=== PATIENT | female | born 1950 | race Caucasian/White ===

== ENCOUNTER 2016-11-04 19:24 | Emergency (ER) | payer MEDICARE, OTHER ==
[~2016-11-04] VITALS: Ht 154.9 cm; Wt 91.0 kg
[~2016-11-04 19:24] MED LIST: ALBU6.7H INH; ALPR.25 PO; ASPI81TA11 PO; AZIT250T74 PO; CEFU1TAB43 PO; CLOP75 PO; EZET10 PO; FLON0.053; FURO1TAB93 PO; METF850T PO; METO25 PO; MORP1CAP63 PO; NEBUMIS6 INH; OMEP20TA OR; OXYC1TAB13 PO; PATA0.2S OP; POTA-243 PO; PRED20 PO; PROM25SU8 PO; STOO100C PO; TRAZ150T2 PO; Z.0.OXYGENDME NC; [UNRECOGNIZED DRUG - CODE] ID
[2016-11-04 19:29] VITALS: BP 181/65; PULSE 54; RESP 18; TEMP 98.5; O2SAT 95
[2016-11-04] MEDS ORDERED: OXYGEN INH (19:51)
[2016-11-04] MEDS ORDERED: METF850T PO (19:51)
[2016-11-04] MEDS ORDERED: COLA100C PO (19:51)
[2016-11-04] MEDS ORDERED: MORP1TAB25 PO (19:51)
[2016-11-04] MEDS ORDERED: TRAZ1TAB45 PO (19:51)
[2016-11-04] MEDS ORDERED: OMEP20TA PO (19:51)
[2016-11-04] MEDS ORDERED: ALPR.25 PO (19:51)
[2016-11-04] MEDS ORDERED: ALBU6.7H INH (19:51)
[2016-11-04] MEDS ORDERED: FLUT1SPR9 EACH NARE (19:51)
[2016-11-04] MEDS ORDERED: PATA0.2S EACH EYE (19:51)
[2016-11-04] MEDS ORDERED: FURO1TAB60 PO (19:51)
[2016-11-04] MEDS ORDERED: PROM12.54 PO (19:51)
[2016-11-04] MEDS ORDERED: PLAV75TA29 PO (19:51)
[2016-11-04] MEDS ORDERED: POTA10CA PO (19:51)
[2016-11-04] MEDS ORDERED: METO25TA3 PO (19:51)
[2016-11-04] MEDS ORDERED: ASPI81CH7 CHEW (19:51)
[2016-11-04] MEDS ORDERED: OXYC-395 PO (19:51)
--- NOTE | 2016-11-04 20:32 | RADRPT ---
EXAM DATE/TIME: 11/04/2016 20:01 [facility] COMPARISON: No previous studies available for comparison. INDICATIONS : Trauma, twisted leg and knee. MEDICAL HISTORY : None. SURGICAL HISTORY : None. ENCOUNTER: Initial ACUITY: 3 days PAIN SCORE: 8/10 LOCATION: Left knee FINDINGS: Four view examination of the left knee demonstrates mild osteoarthritis. No fracture or dislocation. No acute bony abnormalities. CONCLUSION: 1. No acute findings. Mild osteoarthritis left knee. Genaro Rockwell MD on November 04, 2016 at 20:30 Board Certified Radiologist. This report was verified electronically.
--- NOTE | 2016-11-04 20:35 | PD ---
HPI Chief Complaint: Pain: Acute or Chronic Time Seen by Provider: 19:53 Travel History International Travel<30 days: No Contact w/Intl Traveler<30days: No Traveled to known affect area: No History of Present Illness HPI 66-year-old female with chief complaint of left knee pain status post twisting injury while getting out of a cab 3 days ago. She did not fall to the ground. There was no head injury or loss of consciousness. Patient reports she felt pain immediately within the medial aspect but the pain progressed this morning causing her extreme pain with weightbearing. She comes in by EMS. Her daughter is present at bedside. She denies headache, chest pain, shortness breath, abdominal pain, nausea vomiting or diarrhea. She reports she took her morphine this morning. She also has oxycodone for breakthrough pain which she reports she did not take. PFSH Past Medical History Hx Anticoagulant Therapy: Yes Arthritis: Yes (RA) Asthma: No Autoimmune Disease: Yes (LUPUS) Blood Disorders: No Anxiety: Yes Depression: Yes Heart Rhythm Problems: Yes Cancer: No Cardiac Catheterization: Yes Cardiovascular Problems: Yes High Cholesterol: Yes Chemotherapy: No Chest Pain: Yes Congestive Heart Failure: No COPD: Yes Cerebrovascular Accident: Yes Coronary Artery Disease: Yes Diabetes: Yes Patient Takes Glucophage: Yes (11-04-16 0900) Diminished Hearing: No Endocrine: No Gastrointestinal Disorders: Yes GERD: Yes Glaucoma: No Genitourinary: No Headaches: No Hepatitis: No Hiatal Hernia: No Hypertension: Yes (controlled) Immune Disorder: Yes Kidney Stones: No Musculoskeletal: Yes (SPINAL STENOSIS, FIBROMYALGIA) Neurologic: Yes Psychiatric: Yes (PTSD) Reproductive: No Respiratory: Yes Immunizations Current: No Myocardial Infarction: Yes Radiation Therapy: No Renal Failure: No Seizures: No Sickle Cell Disease: No Sleep Apnea: No Thyroid Disease: No Ulcer: No Tetanus Vaccination: Unknown Influenza Vaccination: No ?: Not Ovarian Cysts: Yes Past Surgical History Abdominal Surgery: Yes (partial colectomy) AICD: No Appendectomy: Yes Body Medical Devices: titanium plate in neck Cardiac Surgery: Yes (CABG X 3 VESSELS) Cholecystectomy: Yes Coronary Artery Bypass Graft: Yes (TRIPLE BYPASS) Ear Surgery: No Endocrine Surgery: No Eye Surgery: No Genitourinary Surgery: No Gynecologic Surgery: No Hysterectomy: Yes Joint Replacement: No Neurologic Surgery: Yes (discectomy) Oral Surgery: No Pacemaker: No Thoracic Surgery: No Tonsillectomy: Yes Other Surgery: Yes Social History Alcohol Use: No Tobacco Use: No Substance Use: No Allergies-Medications (Allergen,Severity, Reaction): Coded Allergies: amlodipine (Unverified Allergy, Severe, INTESTINAL REACTION PER PT, ) celecoxib (Unverified Allergy, Severe, GI BLEED, 11/04/16) codeine (Unverified Allergy, Severe, VOMITING, 11/04/16) enalaprilat (Unverified Allergy, Severe, DOES NOT REMEMBER, 11/04/16) gabapentin (Unverified Allergy, Severe, VOMITING, 11/04/16) naproxen (Unverified Allergy, Severe, GI BLEED, 11/04/16) ramipril (Unverified Allergy, Severe, VOMITING, 11/04/16) rofecoxib (Unverified Allergy, Severe, GI BLEED, 11/04/16) sumatriptan (Unverified Allergy, Severe, HEART PALPITATIONS, 11/04/16) pregabalin (Unverified Allergy, Unknown, Psychosis, 11/04/16) Reported Meds & Prescriptions Reported Meds & Active Scripts Active Reported Trazodone (Trazodone HCl) 150 Mg Tablet 150 Mg PO HS Promethazine (Promethazine HCl) 12.5 Mg Tab 12.5 Mg PO Q6H Potassium Chloride ER (Potassium Chloride) 10 Meq Cap 10 Meq PO DAILY [Oxygen] 2 Liter INH DIRECTED Oxycodone (Oxycodone HCl) 10 Mg Tab 10 Mg PO Q6HR Omeprazole 20 Mg Tab 20 Mg PO DAILY [place]aday Opth 0.2% (Olopatadine HCl) 0.2 % Drops 1 Drop EACH EYE DAILY Morphine ER (Morphine Sulfate) 30 Mg Tab 30 Mg PO BID Metoprolol Tartrate 25 Mg Tab 25 Mg PO DAILY Metformin (Metformin HCl) 850 Mg Tab 850 Mg PO DAILY With a meal Lasix (Furosemide) 40 Mg Tab 40 Mg PO BID Flonase Allergy Relief Children Nasal [place] (Fluticasone Nasal [place]) 50 Mcg/ Act [place] 2 [place] EACH NARE BID 50 mcg/spray Colace (Docusate Sodium) 100 Mg Capsule 1 Tab PO BID Plavix (Clopidogrel Bisulfate) 75 Mg Tab 75 Mg PO DAILY Aspirin Children's (Aspirin) 81 Mg Chew 81 Mg CHEW BID Xanax (Alprazolam) 0.25 Mg Tab 0.25 Mg PO TID PRN Proventil Hfa 6.7 GM Inh (Albuterol Sulfate) 90 Mcg/Act Aer 2 Puff INH Q6H PRN Review of Systems Except as stated in HPI: all other systems reviewed are Neg General / Constitutional: No: Fever Eyes: No: Visual changes HENT: No: Headaches Cardiovascular: No: Chest Pain or Discomfort Respiratory: No: Shortness of Breath Gastrointestinal: No: Abdominal Pain Genitourinary: No: Dysuria Skin: No Rash Physical Exam Narrative GENERAL: Alert, well-appearing female resting comfortably on the stretcher. She appears comfortable and in no acute distress SKIN: Focused skin assessment warm/dry. HEAD: Atraumatic. Normocephalic. EYES: Pupils equal and round. No scleral icterus. No injection or drainage. ENT: No nasal bleeding or discharge. Mucous membranes pink and moist. NECK: Trachea midline. No JVD. CARDIOVASCULAR: Regular rate and rhythm. No murmur appreciated. RESPIRATORY: No accessory muscle use. Clear to auscultation. Breath sounds equal bilaterally. Decreased breath sounds bilaterally. GASTROINTESTINAL: Abdomen soft, non-tender, nondistended. Hepatic and splenic margins not palpable. MUSCULOSKELETAL: No obvious deformities. No clubbing. No cyanosis. No edema. Left lower extremity: TTP to the medial anterior aspect of the knee. Pain with full flexion. The joint is stable. No deformity. 2+ distal pulses. NEUROLOGICAL: Awake and alert. No obvious cranial nerve deficits. Motor grossly within normal limits. Normal speech. PSYCHIATRIC: Appropriate mood and affect; insight and judgment normal. Data Data Last Documented VS Vital Signs Date Time Temp Pulse Resp B/P (MAP) Pulse Ox O2 Delivery O2 Flow Rate FiO2 11/04/16 19:29 98.5 54 18 181/65 (103) 95 Orders Orders Knee, Complete (4vws) (11/04/16 ) Splint Or Brace Apply/Monitor (11/04/16 20:53) MDM Medical Decision Making Medical Screen Exam Complete: Yes Emergency Medical Condition: Yes Differential Diagnosis Knee sprain versus strain versus fracture Narrative Course 66-year-old female with chief complaint of left medial knee pain status post twisting injury 3 days ago. Patient reports she was getting out of a cab when she twisted the left knee which caused immediate pain within the medial aspect. The pain increased progressively over 3 days till point this morning where she felt extreme pain with weightbearing. She was brought in by EMS for evaluation. On exam patient appears comfortable. She has pain in the medial aspect of the knee and with flexion of the knee. X-ray of the knee shows mild osteoarthritis without fracture dislocation. This was discussed at length patient and family. Family is concerned the patient is not able to care for herself or ambulate around the house. A requests with case management was made to contact the patient and family tomorrow for a home evaluation and possible placement or home health assistance. Diagnosis Primary Impression: Knee sprain Qualified Codes: S83.412A - Sprain of medial collateral ligament of left knee , initial encounter Referrals: Primary Care Physician Additional Instructions: Take pain medication as prescribed. Use the Sharath wrap to support the left knee. Use the walker to ambulate. Case management will be contacting you tomorrow to set up a home evaluation. Follow-up with her primary care doctor. Disposition: 01 DISCHARGE HOME Condition: Stable Joceline Allen Nov 04, 2016 20:35
== END 2016-11-04 21:39 | disposition home or self-care (01) ==
LOC: PHEFT 19:24
DX: S83.412A Sprain of medial collateral ligament of left knee, initial encounter (principal); E11.9 Type 2 diabetes mellitus without complications; I10 Essential (primary) hypertension; I25.10 Atherosclerotic heart disease of native coronary artery without angina pectoris; I25.2 Old myocardial infarction; J44.9 Chronic obstructive pulmonary disease, unspecified; K21.9 Gastro-esophageal reflux disease without esophagitis; M32.9 Systemic lupus erythematosus, unspecified; M79.7 Fibromyalgia; Z86.73 Personal history of transient ischemic attack (TIA), and cerebral infarction without residual deficits; Z95.1 Presence of aortocoronary bypass graft; Z79.01 Long term (current) use of anticoagulants; X50.1XXA Overexertion from prolonged static or awkward postures, initial encounter
CPT/HCPCS: 73564; 99283

== ENCOUNTER 2017-06-01 04:21 | Inpatient (IN) | payer MEDICARE ==
[~2017-06-01] VITALS: Ht 154.9 cm; Wt 101.6 kg
[2017-06-01] VITALS (21 sets, daily range): BP systolic 156–229; BP diastolic 60–109; PULSE 69–99; RESP 17–24; TEMP 99–101.1; O2SAT 85–99
[~2017-06-01 04:21] MED LIST changes: +ASPI81CH7 CHEW; -ASPI81TA11 PO; -AZIT250T74 PO; -CEFU1TAB43 PO; -CLOP75 PO; +COLA100C5 PO; -EZET10 PO; -FLON0.053; +FLUT1SPR9 EACH NARE; +FURO1TAB60 PO; -FURO1TAB93 PO; -METO25 PO; +METO25TA3 PO; -MORP1CAP63 PO; +MORP1TAB25 PO; -NEBUMIS6 INH; -OMEP20TA OR; +OMEP20TA93 PO; +OXYC-395 PO; -OXYC1TAB13 PO; +OXYGEN INH; +PATA0.2S EACH EYE; -PATA0.2S OP; +PLAV75TA29 PO; -POTA-243 PO; +POTA10CA PO; -PRED20 PO; +PROM12.54 PO; -PROM25SU8 PO; -STOO100C PO; -TRAZ150T2 PO; +TRAZ1TAB14 PO; -Z.0.OXYGENDME NC
--- NOTE | 2017-06-01 04:41 | PD ---
HPI Chief Complaint: ENT Complaint Time Seen by Provider: 04:35 Travel History International Travel<30 days: No Contact w/Intl Traveler<30days: No Traveled to known affect area: No History of Present Illness HPI 66-year-old female presents to the emergency department by EMS transport for complaint of sore throat. Patient has had sore throat for 3 days. Patient states painful to swallow and therefore spitting out oral secretions. Patient was able take aspirin at 8 PM. Patient rates her pain as severe. Patient has extensive past medical history including hypertension dyslipidemia CAD CABG chronic kidney disease fibromyalgia chronic tobacco use COPD anxiety chronic pain syndrome and opiate dependency. Patient denies any hematemesis coffee- ground emesis or hemoptysis. Patient states she has had a fever 10 1F. Patient states she is used [id number] cough medicine without relief. Patient does not report any new shortness of breath orthopnea or PND or lower extremity pain or swelling. Patient is diabetic. Patient has previously been on Plavix. PFSH Past Medical History Narrative Medical Hypertension dyslipidemia CAD CABG chronic kidney disease fibromyalgia tobacco use COPD anxiety chronic pain syndrome opiate dependency CHF; nursing notes reviewed Hx Anticoagulant Therapy: Yes Arthritis: Yes (RA) Asthma: No Autoimmune Disease: Yes (LUPUS) Blood Disorders: No Anxiety: Yes Depression: Yes Heart Rhythm Problems: Yes Cancer: No Cardiac Catheterization: Yes Cardiovascular Problems: Yes High Cholesterol: Yes Chemotherapy: No Chest Pain: Yes Congestive Heart Failure: No COPD: Yes Cerebrovascular Accident: Yes Coronary Artery Disease: Yes Diabetes: Yes Diminished Hearing: No Endocrine: No Gastrointestinal Disorders: Yes GERD: Yes Glaucoma: No Genitourinary: No Headaches: No Hepatitis: No Hiatal Hernia: No Hypertension: Yes (controlled) Immune Disorder: Yes Kidney Stones: No Musculoskeletal: Yes (SPINAL STENOSIS, FIBROMYALGIA) Neurologic: Yes Psychiatric: Yes (PTSD) Reproductive: No Respiratory: Yes Immunizations Current: No Myocardial Infarction: Yes Radiation Therapy: No Renal Failure: No Seizures: No Sickle Cell Disease: No Sleep Apnea: No Thyroid Disease: No Ulcer: No ?: Not Ovarian Cysts: Yes Past Surgical History Abdominal Surgery: Yes (partial colectomy) AICD: No Appendectomy: Yes Body Medical Devices: titanium plate in neck Cardiac Surgery: Yes (CABG X 3 VESSELS) Cholecystectomy: Yes Coronary Artery Bypass Graft: Yes (TRIPLE BYPASS) Ear Surgery: No Endocrine Surgery: No Eye Surgery: No Genitourinary Surgery: No Gynecologic Surgery: No Hysterectomy: Yes Joint Replacement: No Neurologic Surgery: Yes (discectomy) Oral Surgery: No Pacemaker: No Thoracic Surgery: No Tonsillectomy: Yes Other Surgery: Yes Social History Alcohol Use: No Tobacco Use: No Substance Use: No Allergies-Medications (Allergen,Severity, Reaction): Coded Allergies: amlodipine (Unverified Allergy, Severe, INTESTINAL REACTION PER PT, ) celecoxib (Unverified Allergy, Severe, GI BLEED, 06/01/17) codeine (Unverified Allergy, Severe, VOMITING, 06/01/17) enalaprilat (Unverified Allergy, Severe, DOES NOT REMEMBER, 06/01/17) gabapentin (Unverified Allergy, Severe, VOMITING, 06/01/17) naproxen (Unverified Allergy, Severe, GI BLEED, 06/01/17) ramipril (Unverified Allergy, Severe, VOMITING, 06/01/17) rofecoxib (Unverified Allergy, Severe, GI BLEED, 06/01/17) sumatriptan (Unverified Allergy, Severe, HEART PALPITATIONS, 06/01/17) pregabalin (Unverified Allergy, Unknown, Psychosis, 06/01/17) Reported Meds & Prescriptions Reported Meds & Active Scripts Active Reported Trazodone (Trazodone HCl) 150 Mg Tablet 150 Mg PO HS Promethazine (Promethazine HCl) 12.5 Mg Tab 12.5 Mg PO Q6H Potassium Chloride ER (Potassium Chloride) 10 Meq Cap 10 Meq PO DAILY [Oxygen] 2 Liter INH DIRECTED Oxycodone (Oxycodone HCl) 10 Mg Tab 10 Mg PO Q6HR Omeprazole 20 Mg Tab 20 Mg PO DAILY Pataday Opth 0.2% (Olopatadine HCl) 0.2 % Drops 1 Drop EACH EYE DAILY Morphine ER (Morphine Sulfate) 30 Mg Tab 30 Mg PO BID Metoprolol Tartrate 25 Mg Tab 25 Mg PO DAILY Metformin (Metformin HCl) 850 Mg Tab 850 Mg PO DAILY With a meal Lasix (Furosemide) 40 Mg Tab 40 Mg PO BID Flonase Allergy Relief Children Nasal [place] (Fluticasone Nasal [place]) 50 Mcg/ Act [place] 2 [place] EACH NARE BID 50 mcg/spray Colace (Docusate Sodium) 100 Mg Capsule 1 Tab PO BID Plavix (Clopidogrel Bisulfate) 75 Mg Tab 75 Mg PO DAILY Aspirin Children's (Aspirin) 81 Mg Chew 81 Mg CHEW BID Xanax (Alprazolam) 0.25 Mg Tab 0.25 Mg PO TID PRN Proventil Hfa 6.7 GM Inh (Albuterol Sulfate) 90 Mcg/Act Aer 2 Puff INH Q6H PRN Review of Systems Except as stated in HPI: all other systems reviewed are Neg General / Constitutional: Positive: Fever, No: Chills HENT: Positive: Sore Throat, Congestion Cardiovascular: No: Chest Pain or Discomfort Respiratory: No: Cough, Shortness of Breath, Wheezing, Orthopnea, Hemoptysis Gastrointestinal: No: Vomiting, Abdominal Pain Genitourinary: No: Flank Pain Musculoskeletal: No: Myalgias, Arthralgias, Edema, Pain Skin: No Rash Neurologic: No: Weakness Psychiatric: No: Anxiety Hematologic/Lymphatic: No: Lymph Node Enlargement Physical Exam Narrative GENERAL: Well-developed well-nourished female ambulating about the emergency department exam room with supplemental oxygen via nasal cannula spitting into a plastic cup with O2 saturations 96-97% in no acute respiratory distress without stridor or hoarseness. SKIN: Warm and dry. HEAD: Normocephalic. EYES: No scleral icterus. No injection or drainage. ENT: Mucous membranes moist airway is patent, no edema, no erythema, no mass, no exudative change, no angioedema NECK: Supple, trachea midline. No JVD or lymphadenopathy. No palpable submandibular or anterior neck mass. CARDIOVASCULAR: Regular rate and rhythm without murmurs, gallops, or rubs. RESPIRATORY: Breath sounds equal bilaterally. No accessory muscle use. GASTROINTESTINAL: Abdomen soft, non-tender, nondistended. MUSCULOSKELETAL: No cyanosis, or edema. BACK: Nontender without obvious deformity. No CVA tenderness. Data Data Last Documented VS Vital Signs Date Time Temp Pulse Resp B/P (MAP) Pulse Ox O2 Delivery O2 Flow Rate FiO2 06/01/17 08:07 18 06/01/17 07:46 99.4 91 156/109 (125) 95 Nasal Cannula 2.00 Orders Orders Basic Metabolic Panel (Bmp) (06/01/17 04:35) Complete Blood Count With Diff (06/01/17 04:35) Blood Culture (06/01/17 04:35) Group A Rapid Strep Screen (06/01/17 04:35) Ct Soft Tiss Neck W Iv Cont (06/01/17 04:35) Iv Access Insert/Monitor (06/01/17 04:35) Sodium Chloride 0.9% Flush (Ns Flush) (06/01/17 04:45) Strep Culture (Group A) (06/01/17 05:00) Iohexol 350 Inj (Omnipaque 350 Inj) (06/01/17 06:37) Lactic Acid (06/01/17 07:06) Blood Culture (06/01/17 07:06) Ampicillin-Sulbactam Inj (Unasyn Inj) (06/01/17 07:15) Dexamethasone Inj (Decadron Inj) (06/01/17 07:15) Ondansetron Inj (Zofran Inj) (06/01/17 07:15) Morphine Inj (Morphine Inj) (06/01/17 07:15) Clindamycin 600 Mg/Ns Premix (Cleocin 60 (06/01/17 08:45) Labs Laboratory Tests Test 06/01/17 05:10 06/01/17 07:55 White Blood Count 8.7 TH/MM3 Red Blood Count 3.90 MIL/MM3 Hemoglobin 12.5 GM/DL Hematocrit 36.7 % Mean Corpuscular Volume 94.1 FL Mean Corpuscular Hemoglobin 32.2 PG Mean Corpuscular Hemoglobin Concent 34.2 % Red Cell Distribution Width 12.5 % Platelet Count 88 TH/MM3 Mean Platelet Volume 9.3 FL Neutrophils (%) (Auto) 85.3 % Lymphocytes (%) (Auto) 7.1 % Monocytes (%) (Auto) 5.8 % Eosinophils (%) (Auto) 1.0 % Basophils (%) (Auto) 0.8 % Neutrophils # (Auto) 7.4 TH/MM3 Lymphocytes # (Auto) 0.6 TH/MM3 Monocytes # (Auto) 0.5 TH/MM3 Eosinophils # (Auto) 0.1 TH/MM3 Basophils # (Auto) 0.1 TH/MM3 CBC Comment AUTO DIFF Differential Total Cells Counted 100 Neutrophils % (Manual) 83 % Band Neutrophils % 6 % Lymphocytes % 8 % Monocytes % 1 % Eosinophils % 1 % Basophils % 1 % Neutrophils # (Manual) 7.7 TH/MM3 Differential Comment FINAL DIFF MANUAL Platelet Estimate LOW Platelet Morphology Comment NORMAL Red Cell Morphology Comment NORMAL Blood Urea Nitrogen 12 MG/DL Creatinine 0.81 MG/DL Random Glucose 119 MG/DL Calcium Level 9.5 MG/DL Sodium Level 139 MEQ/L Potassium Level 3.8 MEQ/L Chloride Level 105 MEQ/L Carbon Dioxide Level 22.8 MEQ/L Anion Gap 11 MEQ/L Estimat Glomerular Filtration Rate 71 ML/MIN Lactic Acid Level 2.0 mmol/L MDM Medical Decision Making Medical Screen Exam Complete: Yes Emergency Medical Condition: Yes Medical Record Reviewed: Yes Interpretation(s) Last Impressions Neck CT 06/01/17 0435 Signed Impressions: Service Date/Time: Thursday, June 01, 2017 06:20 - CONCLUSION: 1. Findings suggestive left oral pharyngeal mass and concentric narrowing of the supraglottic airway at the level of the hyoid. 2. Incomplete evaluation of the oropharynx and hypopharynx due to motion/streak artifact. 3. Prominent gaseous distention of the upper thoracic esophagus. Patricio Lake MD CBC & BMP Diagram 06/01/17 05:10 Calcium Level 9.5 Vital Signs Date Time Temp Pulse Resp B/P (MAP) Pulse Ox O2 Delivery O2 Flow Rate FiO2 06/01/17 08:07 18 06/01/17 07:46 99.4 91 18 156/109 (125) 95 Nasal Cannula 2.00 06/01/17 06:29 92 18 223/78 (126) 99 Nasal Cannula 2.00 06/01/17 05:47 87 22 224/99 (140) 98 Nasal Cannula 2.00 06/01/17 04:25 99.1 90 20 229/87 (134) 99 06/01/17 04:25 18 Differential Diagnosis Pharyngitis, strep throat, sinusitis, retropharyngeal abscess, submandibular abscess, Vikash's angina, mass; no evidence for peritonsillar abscess Narrative Course IV access obtained specimens collected and sent for resulting patient continued on supplemental oxygen Zofran 4 mg IV administered for complaint of nausea Patient aware of lab results and imaging results and plan to transfer to [facility] for evaluation and possible procedural intervention by earring maker Patient administered antibiotic presumptively along with Decadron CBC is automated differential white count is in normal range mild left shift; basic metabolic panel grossly normal range; lactic acid 2.0 not elevated Physician Communication Physician Communication discussed with Dr Chambers --send to [facility] to medicine, npo, scope this afternoon, continue decadron 6mg iv q 8 h, and antibiotics clindamycin 600mg ivpb q 6 hours ; hold plavix and aspirin; discussed with Dr Lenz Diagnosis Primary Impression: Oropharyngeal mass Additional Impressions: Diabetes mellitus CHRONIC OBSTRUCTIVE ASTHMA, NOS HYPERTENSION NOS Chronic pain Admitting Information Admitting Physician Requests: Admit Nano Sykes MD Jun 01, 2017 04:41
[2017-06-01] MEDS ORDERED: SODIUM CHLORIDE 0.9% FLUSH 10 ML FLUSH IVF PRN (04:45)
[2017-06-01 05:30] LABS: AUTOMATED NEUTROPHIL # 7.4 TH/MM3 (1.8-7.7); BASOPHIL # 0.1 TH/MM3 (0-0.2); BASOPHIL % 0.8 % (0.0-2.0); EOSINOPHIL # 0.1 TH/MM3 (0-0.4); HEMATOCRIT 36.7 % (35.0-46.0); HEMOGLOBIN 12.5 GM/DL (11.6-15.3); LYMPH % 7.1 % (9.0-44.0); LYMPHOCYTE # 0.6 TH/MM3 (1.0-4.8); MEAN CELL VOLUME 94.1 FL (80.0-100.0); MEAN CORPUSCULAR HEMOGLOBIN 32.2 PG (27.0-34.0); MEAN CORPUSCULAR HGB CONC 34.2 % (32.0-36.0); MEAN PLATELET VOLUME 9.3 FL (7.0-11.0); MONO % 5.8 % (0.0-8.0); MONOCYTE # 0.5 TH/MM3 (0-0.9); NEUT % 85.3 % (16.0-70.0); PLATELET COUNT 88 TH/MM3 (150-450); RED CELL DISTRIBUTION WIDTH 12.5 % (11.6-17.2); WHITE BLOOD COUNT 8.7 TH/MM3 (4.0-11.0)
[2017-06-01 05:53] LABS: CALCIUM 9.5 MG/DL (8.5-10.1)
[2017-06-01 05:54] LABS: BICARBONATE 22.8 MEQ/L (21.0-32.0)
[2017-06-01 05:57] LABS: CREATININE 0.81 MG/DL (0.50-1.00)
[2017-06-01 06:23] LABS: BANDS 6 % (0-6); BASOPHILS 1 % (0-2); LYMPHOCYTES 8 % (9-44); MONOCYTES 1 % (0-8); NEUTROPHIL # MANUAL DIFF 7.7 TH/MM3 (1.8-7.7); POLYS (SEG NEUTROPHILS) 83 % (16-70)
[2017-06-01] MEDS ORDERED: IOHEXOL 350 MG/ML 10 ML VIAL (for RAD DIAG) IVCONTRAST ONE (06:37)
--- NOTE | 2017-06-01 07:04 | RADRPT ---
EXAM DATE/TIME: 06/01/2017 06:20 [facility] COMPARISON: No previous studies available for comparison. INDICATIONS : Sore throat. Excessive saliva. IV CONTRAST: 75 cc Omnipaque 350 (iohexol) IV RADIATION DOSE: 14.89 CTDIvol (mGy) MEDICAL HISTORY : Cardiovascular disease. SURGICAL HISTORY : Discectomy, cervical. CABG ENCOUNTER: Initial ACUITY: 3 days PAIN SCALE: 1/10 LOCATION: neck TECHNIQUE: Volumetric scanning of the neck was performed. Using automated exposure control and adjustment of th e mA and/or kV according to patient size, radiation dose was kept as low as reasonably achievable to obtain optimal diagnostic quality images. DICOM format image data is available electronically for r eview and comparison. FINDINGS: Image quality in the old pharyngeal and laryngeal levels is degraded by motion. There is asymmetry t o the oropharynx with masslike enlargement of the left lateral oral pharyngeal wall. The airway at t he level of the hyoid is concentrically narrowed measuring up to 1.7 cm in thickness. There is gas s een lateral to the left and right hyoid, incompletely evaluated due to motion artifact. No enlarged lateral compartment nodes. The visualized apical lungs are clear. The upper thoracic esophagus is p rominently distended measuring up to 3.5 cm in width. Homogeneous enhancement in the thyroid. CONCLUSION: 1. Findings suggestive left oral pharyngeal mass and concentric narrowing of the supraglottic airway at the level of the hyoid. 2. Incomplete evaluation of the oropharynx and hypopharynx due to motion/streak artifact. 3. Prominent gaseous distention of the upper thoracic esophagus. Patricio Lake MD on June 01, 2017 at 6:57 Board Certified Radiologist. This report was verified electronically.
[2017-06-01] MEDS ORDERED: MORPHINE SULFATE 2 MG/ML INJ IV PUSH ONE (07:15)
[2017-06-01] MEDS ORDERED: ONDANSETRON HCL 4 MG/2 ML VIAL IV PUSH ONE (07:15)
[2017-06-01] MEDS ORDERED: AMPICILLIN-SULBACTAM INJ 3 GM in SODIUM CHLORIDE 0.9% INJ 100 ML IV ONE (07:15)
[2017-06-01] MEDS ORDERED: DEXAMETHASONE SOD PHOS 4 MG/ML VIAL IV PUSH ONE (07:15)
[2017-06-01] MEDS ORDERED: CLINDAMYCIN 600 MG/NS PREMIX 50 ML IV ONE (08:45)
[2017-06-01] MEDS ORDERED: NALOXONE HCL 0.4 MG/ML AMP IV PUSH PRN (09:45)
[2017-06-01] MEDS ORDERED: SODIUM CHLORIDE 0.9% FLUSH 10 ML FLUSH IV FLUSH PRN (09:45)
[2017-06-01] MEDS ORDERED: MAGNESIUM HYDROXIDE SUSP 30 ML CUP PO PRN (10:00)
[2017-06-01] MEDS ORDERED: BISACODYL 10 MG SUPP RECTAL PRN (10:00)
[2017-06-01] MEDS ORDERED: LACTULOSE SYRUP 20 GM/30 ML CUP PO PRN (10:00)
[2017-06-01] MEDS ORDERED: SENNOSIDES 8.6 MG TAB PO PRN (10:00)
[2017-06-01] MEDS: MORPHINE SULFATE 2 MG/ML INJ IV PUSH PRN ×3 (11:59→22:42)
[2017-06-01] MEDS ORDERED: DEXAMETHASONE SOD PHOS 4 MG/ML VIAL IV SCH (12:00)
[2017-06-01] MEDS ORDERED: GLUCAGON 1 MG/ML VIAL OTHER PRN (14:45)
[2017-06-01] MEDS ORDERED: DEXTROSE 50% IN WATER 50 ML VIAL(D50) IV PUSH PRN (14:45)
--- NOTE | 2017-06-01 14:45 | HHI.HP ---
[facility] Maikol Curry MD Admission Diagnosis oropharyngeal mass Diagnoses: Chief Complaint: Throat pain and difficulty swallowing Travel History International Travel<30 Days: No Contact w/Intl Traveler <30 Da: No Traveled to Known Affected Are: No History of Present Illness This patient is a 66-year-old female with a history of coronary disease had 3 days of throat pain which was quite severe and finally she began have difficulty swallowing and could not even swallow her own spit. She is come to the emergency room after taking aspirin and still having severe pain. Pain is worse with coughing and swallowing. At home there was a temperature of 101 but she has not had a temperature here. She took [id number] cough medicine without improvement. She does have COPD but notes he has not really been short of breath. She has been seen by the ENT specialist and recommended for inpatient observation due to airway compromise. She has been started on IV steroids and antibiotics. Review of Systems Constitutional: DENIES: Diaphoretic episodes, Fatigue, Fever, Weight gain, Weight loss, Chills, Dizziness, Change in appetite, Night Sweats Endocrine: DENIES: Abnorml menstrual pattern, Heat/cold intolerance, Polydipsia , Polyuria, Polyphagia Eyes: DENIES: Blurred vision, Diplopia, Eye inflammation, Eye pain, Vision loss , Photosensitivity, Double Vision Ears, nose, mouth, throat: COMPLAINS OF: Throat pain, Hoarseness, DENIES: Tinnitus, Hearing loss, Vertigo, Nasal discharge, Oral lesions, Ear Pain, Running Nose, Epistaxis, Sinus Pain, Toothache, Odynophagia Respiratory: DENIES: Apneas, Cough, Snoring, Wheezing, Hemoptysis, Sputum production, Shortness of breath Cardiovascular: DENIES: Chest pain, Palpitations, Syncope, Dyspnea on Exertion , PND, Lower Extremity Edema, Orthopnea, Claudication Gastrointestinal: DENIES: Abdominal pain, Black stools, Bloody stools, Constipation, Diarrhea, Nausea, Vomiting, Difficulty Swallowing, Anorexia Genitourinary: DENIES: Abnormal vaginal bleeding, Dysmenorrhea, Dyspareunia, Sexual dysfunction, Urinary frequency, Urinary incontinence, Urgency, Hematuria , Dysuria, Nocturia, Vaginal discharge Musculoskeletal: DENIES: Joint pain, Muscle aches, Stiffness, Joint Swelling, Back pain, Neck pain Integumentary: DENIES: Abnormal pigmentation, Pruritus, Rash, Nail changes, Breast masses, Breast skin changes, Nipple discharge Hematologic/lymphatic: DENIES: Bruising, Lymphadenopathy Immunologic/allergic: DENIES: Eczema, Urticaria Neurologic: DENIES: Abnormal gait, Headache, Localized weakness, Paresthesias, Seizures, Speech Problems, Tremor, Poor Balance Psychiatric: DENIES: Anxiety, Confusion, Mood changes, Depression, Hallucinations, Agitation, Suicidal Ideation, Homicidal Ideation, Delusions Except as stated in HPI: all other systems reviewed are Neg Past Family Social History Past Medical History CAD Chronic pain COPD on home O2 Past Surgical History Cardiac bypass Partial colectomy Neck surgery Cholecystectomy Appendectomy Reported Medications Reviewed in the EMR, ran out of her medications 2 weeks ago Allergies: Coded Allergies: amlodipine (Unverified Allergy, Severe, INTESTINAL REACTION PER PT, ) celecoxib (Unverified Allergy, Severe, GI BLEED, 06/01/17) codeine (Unverified Allergy, Severe, VOMITING, 06/01/17) enalaprilat (Unverified Allergy, Severe, DOES NOT REMEMBER, 06/01/17) gabapentin (Unverified Allergy, Severe, VOMITING, 06/01/17) naproxen (Unverified Allergy, Severe, GI BLEED, 06/01/17) ramipril (Unverified Allergy, Severe, VOMITING, 06/01/17) rofecoxib (Unverified Allergy, Severe, GI BLEED, 06/01/17) sumatriptan (Unverified Allergy, Severe, HEART PALPITATIONS, 06/01/17) pregabalin (Unverified Allergy, Unknown, Psychosis, 06/01/17) Active Ordered Medications Reviewed in the EMR Family History Unknown per patient Social History No tobacco or alcohol dependency Physical Exam Vital Signs Vital Signs Date Time Temp Pulse Resp B/P (MAP) Pulse Ox O2 Delivery O2 Flow Rate FiO2 06/01/17 12:01 95 20 221/85 (130) 98 Nasal Cannula 2.00 06/01/17 09:18 92 22 194/77 (116) 96 Nasal Cannula 2.00 06/01/17 08:07 18 3/20/18 07:46 99.4 91 18 156/109 (125) 95 Nasal Cannula 2.00 06/01/17 06:29 92 18 223/78 (126) 99 Nasal Cannula 2.00 06/01/17 05:47 87 22 224/99 (140) 98 Nasal Cannula 2.00 06/01/17 04:25 99.1 90 20 229/87 (134) 99 06/01/17 04:25 18 Physical Exam GENERAL: This is a well-nourished, well-developed patient hoarse, unable to swallow her spit SKIN: No rashes, ecchymoses or lesions. Cool and dry. HEAD: Atraumatic. Normocephalic. No temporal or scalp tenderness. EYES: Pupils equal round and reactive. Extraocular motions intact. No scleral icterus. No injection or drainage. ENT: Nose without bleeding, purulent drainage or septal hematoma. Throat without erythema, tonsillar hypertrophy or exudate. Uvula midline. Airway patent. NECK: Trachea midline. No JVD or lymphadenopathy. Supple, nontender, no meningeal signs. CARDIOVASCULAR: Regular rate and rhythm without murmurs, gallops, or rubs. RESPIRATORY: Clear to auscultation. Breath sounds equal bilaterally. No wheezes , rales, or rhonchi. GASTROINTESTINAL: Abdomen soft, non-tender, nondistended. No hepato-splenomegaly , or palpable masses. No guarding. MUSCULOSKELETAL: Extremities without clubbing, cyanosis, or edema. No joint tenderness, effusion, or edema noted. No calf tenderness. Negative Homans sign bilaterally. NEUROLOGICAL: Awake and alert. Cranial nerves II through XII intact. Motor and sensory grossly within normal limits. Five out of 5 muscle strength in all muscle groups. Normal speech. Laboratory Laboratory Tests Test 06/01/17 05:10 06/01/17 07:55 White Blood Count 8.7 Red Blood Count 3.90 Hemoglobin 12.5 Hematocrit 36.7 Mean Corpuscular Volume 94.1 Mean Corpuscular Hemoglobin 32.2 Mean Corpuscular Hemoglobin Concent 34.2 Red Cell Distribution Width 12.5 Platelet Count 88 Mean Platelet Volume 9.3 Neutrophils (%) (Auto) 85.3 Lymphocytes (%) (Auto) 7.1 Monocytes (%) (Auto) 5.8 Eosinophils (%) (Auto) 1.0 Basophils (%) (Auto) 0.8 Neutrophils # (Auto) 7.4 Lymphocytes # (Auto) 0.6 Monocytes # (Auto) 0.5 Eosinophils # (Auto) 0.1 Basophils # (Auto) 0.1 CBC Comment AUTO DIFF Differential Total Cells Counted 100 Neutrophils % (Manual) 83 Band Neutrophils % 6 Lymphocytes % 8 Monocytes % 1 Eosinophils % 1 Basophils % 1 Neutrophils # (Manual) 7.7 Differential Comment FINAL DIFF MANUAL Platelet Estimate LOW Platelet Morphology Comment NORMAL Red Cell Morphology Comment NORMAL Blood Urea Nitrogen 12 Creatinine 0.81 Random Glucose 119 Calcium Level 9.5 Sodium Level 139 Potassium Level 3.8 Chloride Level 105 Carbon Dioxide Level 22.8 Anion Gap 11 Estimat Glomerular Filtration Rate 71 Lactic Acid Level 2.0 Date/Time Source Procedure Growth Status 06/01/17 07:55 Blood Peripheral Aerobic Blood Culture Pending Received 06/01/17 07:55 Blood Peripheral Anaerobic Blood Culture Pending Received 06/01/17 05:00 Throat Group A Streptococcus Screen Pending Received Result Diagram: 06/01/17 0510 06/01/17 0510 Imaging Last Impressions Neck CT 06/01/17 0435 Signed Impressions: Service Date/Time: Thursday, June 01, 2017 06:20 - CONCLUSION: 1. Findings suggestive left oral pharyngeal mass and concentric narrowing of the supraglottic airway at the level of the hyoid. 2. Incomplete evaluation of the oropharynx and hypopharynx due to motion/streak artifact. 3. Prominent gaseous distention of the upper thoracic esophagus. MD Keiko Peacock VTE Risk Assessment Caprini VTE Risk Assessment: Mod/High Risk (score >= 2) Caprini Risk Assessment Model Point Value = 1 Point Value = 2 Point Value = 3 Point Value = 5 Age 41-60 Minor surgery BMI > 25 kg/m2 Swollen legs Varicose veins or History of unexplained or recurrent spontaneous Oral contraceptives or hormone replacement Sepsis (< 1 month) Serious lung disease, including pneumonia (< 1 month) Abnormal pulmonary function Acute myocardial infarction Congestive heart failure (< 1 month) History of inflammatory bowel disease Medical patient at bed rest Age 61-74 Arthroscopic surgery Major open surgery (> 45 min) Laparoscopic surgery (> 45 min) Malignancy Confined to bed (> 72 hours) Immobilizing plaster cast Central venous access Age >= 75 History of VTE Family history of VTE Factor V Leiden Prothrombin [id number] Lupus anticoagulant Anticardiolipin antibodies Elevated serum homocysteine Heparin-induced thrombocytopenia Other congenital or acquired thrombophilia Stroke (< 1 month) Elective arthroplasty Hip, pelvis, or leg fracture Acute spinal cord injury (< 1 month) Prophylaxis Regimen Total Risk Factor Score Risk Level Prophylaxis Regimen 0-1 Low Early ambulation 2 Moderate Order ONE of the following: *Sequential Compression Device (SCD) *Heparin 5000 units SQ BID 3-4 Higher Order ONE of the following medications: *Heparin 5000 units SQ TID *Enoxaparin/Lovenox 40 mg SQ daily (WT < 150 kg, CrCl > 30 mL/min) *Enoxaparin/Lovenox 30 mg SQ daily (WT < 150 kg, CrCl > 10-29 mL/min) *Enoxaparin/Lovenox 30 mg SQ BID (WT < 150 kg, CrCl > 30 mL/min) AND/OR *Sequential Compression Device (SCD) 5 or more Highest Order ONE of the following medications: *Heparin 5000 units SQ TID (Preferred with Epidurals) *Enoxaparin/Lovenox 40 mg SQ daily (WT < 150 kg, CrCl > 30 mL/min) *Enoxaparin/Lovenox 30 mg SQ daily (WT < 150 kg, CrCl > 10-29 mL/min) *Enoxaparin/Lovenox 30 mg SQ BID (WT < 150 kg, CrCl > 30 mL/min) AND *Sequential Compression Device (SCD) Assessment and Plan Problem List: (1) Oropharyngeal mass ICD Code: R22.1 - Localized swelling, mass and lump, neck Status: Acute Plan: Rule out abscess Continue with IV antibiotics ENT consult appreciated Continue IV steroids Continue n.p.o. status for now and follow in ICU for close follow-up of airway Assessment and Plan We will continue home medications for cardiac disease and dyspepsia with IV medications as needed otherwise resume medications by mouth when able to tolerate Code Status full code Discussed Condition With patient ERMD Physician Certification 2 Midnight Certification Type: Admission for Inpatient Services Order for Inpatient Services The services are ordered in accordance with Medicare regulations or non- Medicare payer requirements, as applicable. In the case of services not specified as inpatient-only, they are appropriately provided as inpatient services in accordance with the 2-midnight benchmark. Estimated LOS (days): 3 3 days is the estimated time the patient will need to remain in the hospital, assuming treatment plan goals are met and no additional complications. Post-Hospital Plan: Rosalva Pang MD Jun 01, 2017 14:45
[2017-06-01] MEDS ORDERED: RESP: ALBUTEROL 2.5 MG/IPRATROPIUM 0.5 MG NEB (PRN) NEB (15:00)
[2017-06-01] MEDS: DEXAMETHASONE SOD PHOS 4 MG/ML VIAL IV SCH ×2 (15:44→22:42)
[2017-06-01] MEDS: PANTOPRAZOLE SODIUM 40 MG VIAL IV PUSH SCH (15:45)
[2017-06-01] MEDS: INSULIN ASPART SUPPLEMENTAL SCALE SQ SCH ×2 (15:49→20:30)
[2017-06-01] MEDS: ONDANSETRON HCL 4 MG/2 ML VIAL IVP PRN (16:06)
[2017-06-01] MEDS ORDERED: METOPROLOL TARTRATE 5 MG/5 ML VIAL IV PUSH PRN (16:15)
[2017-06-01] MEDS: LORazepam 2 MG/ML VIAL IV PUSH PRN (16:32)
[2017-06-01] MEDS: AMPICILLIN/SULBAC 3 GM/NS 100 ML IV SCH ×2 (16:32)
[2017-06-01] MEDS: CLINDAMYCIN 900 MG/NS PREMIX 50 ML IV SCH (16:58)
[2017-06-01] MEDS ORDERED: hydrALAZINE HCL 20 MG/ML VIAL IV PUSH ONE (18:30)
[2017-06-01] MEDS: DOCUSATE SODIUM 50 MG/SENNA 8.6 MG TAB PO SCH (20:29)
[2017-06-01] MEDS: SODIUM CHLORIDE 0.9% FLUSH 10 ML FLUSH IV FLUSH SCH (20:29)
[2017-06-02] VITALS (18 sets, daily range): BP systolic 143–166; BP diastolic 56–108; PULSE 74–128; RESP 15–37; TEMP 98.7–99; O2SAT 96–99
[2017-06-02] MEDS: CLINDAMYCIN 900 MG/NS PREMIX 50 ML IV SCH ×3 (00:11→15:42)
[2017-06-02] MEDS: AMPICILLIN/SULBAC 3 GM/NS 100 ML IV SCH ×6 (00:46→17:39)
[2017-06-02] MEDS: hydrALAZINE HCL 20 MG/ML VIAL IV PUSH PRN (02:52)
[2017-06-02] MEDS ORDERED: CHLORHEXIDINE GLUCONATE 2 % 1 PACK (2 CLOTHS)(extra cloths) TOPICAL PRN (03:00)
[2017-06-02] MEDS: CHLORHEXIDINE GLUCONATE 2 % 1 PACK (2 CLOTHS)(taper/protocol) TOPICAL SCH (03:26)
[2017-06-02] MEDS: ONDANSETRON HCL 4 MG/2 ML VIAL IVP PRN ×2 (06:11→21:29)
[2017-06-02] MEDS: MORPHINE SULFATE 2 MG/ML INJ IV PUSH PRN ×2 (06:12→15:43)
[2017-06-02] MEDS: SODIUM CHLORIDE 0.9% FLUSH 10 ML FLUSH IV FLUSH SCH ×2 (07:29→21:29)
[2017-06-02] MEDS: DEXAMETHASONE SOD PHOS 4 MG/ML VIAL IV SCH ×2 (07:29→15:42)
[2017-06-02] MEDS: DOCUSATE SODIUM 50 MG/SENNA 8.6 MG TAB PO SCH ×2 (07:30→21:00)
[2017-06-02] MEDS: INSULIN ASPART SUPPLEMENTAL SCALE SQ SCH ×4 (07:42→21:00)
--- NOTE | 2017-06-02 08:30 | MB ---
cc: Sarthak Chambers MD DATE: CHIEF COMPLAINT: Throat pain. HISTORY OF PRESENT ILLNESS: This is a 66-year-old female who reports only a 3-day history of throat pain and difficulty swallowing, unable to tolerate her own secretions. She came to the emergency room reporting severe pain with pain worsening with cough and swallowing. She did have a fever at home of over [address] scan evaluation showed significant edema of the upper airway and the oropharynx as well as the supraglottic area and the glottis. Decision was made to admit her to the ICU for continued airway observation. She continued to maintain her airway throughout the emergency room visit, and her saturations stayed normal. PAST MEDICAL HISTORY: Significant for coronary artery disease, chronic pain, COPD. PAST SURGICAL HISTORY: Significant for cardiac bypass, partial colectomy, some type of neck surgery, cholecystectomy as well as appendectomy. SHE HAS A LARGE NUMBER OF CODED ALLERGIES, PLEASE SEE THE CHART FOR THESE, TO MEDICATIONS. CURRENT MEDICATIONS AN OUTPATIENT: Reviewed per the EMR. PHYSICAL EXAMINATION: Today, the patient is awake and oriented; however, she has been given some morphine for the pain, is easily arousable but is somewhat sleepy. Her saturations are maintained at 99% on room air. HEENT: A flexible laryngoscopy performed at bedside through the left nostril reveals a significant amount of edema on the left side of the upper airway with significant erythema of the left arytenoid, left epiglottis, left false vocal fold, as well as the left piriform sinus area, the left pharyngeal wall up to the left oropharynx. There are several small ulcerations along the left arytenoid area with no obvious distinct mass, just significant amounts of edema. NECK: Soft. There are no significant masses noted. Soft to palpation. ASSESSMENT AND PLAN: Patient with what is possibly a significant infection of the pharynx with significant pharyngitis; however, I do have significant concern that this could be a malignant underlying process, which seems to be a more likely scenario at this time. I do think she should continue her IV steroids as well as the IV antibiotics however, if things do not improve significantly and the small ulcerations that are noted throughout the supraglottic area do not improve, she would likely need to have these biopsied. At this time, we will reevaluate the airway with the flexible laryngoscopy in another day or so after she has had a little more treatment with IV antibiotics as well as steroids. Thank you for the consultation. MD CARLI Bernstein/SANDRA , 08:10 AM , 08:28 AM HATTIE
[2017-06-02] MEDS: LORazepam 2 MG/ML VIAL IV PUSH PRN (11:21)
[2017-06-02] MEDS ORDERED: ACETAMINOPHEN 500 MG CPLT PO PRN (12:00)
--- NOTE | 2017-06-02 15:20 | HHI.PR ---
Subjective Remarks Follow up for pharyngeal mass/infection, MRSA bacteremia. Patient is doing well. No fever, chills. However, she cannot swallow any food, liquid or saliva. She wants to sit in the chair. Objective Vitals Vital Signs Date Time Temp Pulse Resp B/P (MAP) Pulse Ox O2 Delivery O2 Flow Rate FiO2 06/02/17 13:00 84 19 151/67 (95) 98 06/02/17 12:00 88 18 166/70 (102) 96 06/02/17 11:12 97 20 159/69 (99) 98 06/02/17 11:00 110 37 164/108 (126) 06/02/17 10:00 85 20 148/56 (86) 97 06/02/17 09:00 85 20 143/61 (88) 96 06/02/17 08:52 96 Nasal Cannula 2.00 06/02/17 08:00 91 18 147/66 (93) 96 06/02/17 06:00 128 06/02/17 04:00 98.7 100 18 163/64 (97) 97 06/02/17 04:00 100 06/02/17 02:00 85 06/02/17 00:00 78 06/02/17 00:00 98.7 78 15 162/69 (100) 98 06/01/17 23:00 97 Nasal Cannula 2.00 06/01/17 22:00 99 06/01/17 20:00 99.0 96 21 171/72 (105) 97 06/01/17 20:00 96 06/01/17 18:00 69 06/01/17 17:18 99.3 74 23 200/89 (126) 99 06/01/17 17:02 73 23 199/84 (122) 99 06/01/17 17:00 91 23 99 06/01/17 16:31 95 21 214/93 (133) 98 06/01/17 16:30 89 17 96 06/01/17 16:14 83 19 221/88 (132) 95 06/01/17 16:04 89 19 204/84 (124) 90 06/01/17 16:01 87 19 211/85 (127) 88 06/01/17 16:00 84 06/01/17 16:00 84 18 85 06/01/17 15:50 18 I/O 06/01/17 06/01/17 06/01/17 06/02/17 06/02/17 06/02/17 07:00 15:00 23:00 07:00 15:00 23:00 Intake Total 100 ml 400 ml 150 ml Output Total 500 ml 500 ml Balance 100 ml -100 ml -350 ml Intake Oral 250 ml IV Total 100 ml 150 ml 150 ml Output Urine Total 500 ml 500 ml # Voids 1 1 # Bowel Movements 1 Result Diagram: 06/01/17 0510 06/01/17 0510 Imaging Last Impressions Neck CT 06/01/17 0435 Signed Impressions: Service Date/Time: Thursday, June 01, 2017 06:20 - CONCLUSION: 1. Findings suggestive left oral pharyngeal mass and concentric narrowing of the supraglottic airway at the level of the hyoid. 2. Incomplete evaluation of the oropharynx and hypopharynx due to motion/streak artifact. 3. Prominent gaseous distention of the upper thoracic esophagus. Patricio Lake MD Objective Remarks GENERAL: Alert, NAD. Speaking in full sentences. SKIN: Warm and dry. HEAD: Normocephalic. EYES: No scleral icterus. No injection or drainage. NECK: Supple, trachea midline. No JVD or lymphadenopathy. CARDIOVASCULAR: Regular rate and rhythm without murmurs, gallops, or rubs. RESPIRATORY: Breath sounds equal bilaterally. No accessory muscle use. GASTROINTESTINAL: Abdomen soft, non-tender, nondistended. MUSCULOSKELETAL: No cyanosis, or edema. BACK: Nontender without obvious deformity. No CVA tenderness. Procedures Flexible laryngoscopy A/P Problem List: (1) Oropharyngeal mass ICD Code: R22.1 - Localized swelling, mass and lump, neck Status: Acute (2) MRSA bacteremia ICD Code: R78.81 - Bacteremia Assessment and Plan Ms. Dodd is a 66 year old female with a history of O2 dependent COPD who was admitted due to throat pain. Work up indicated possible pharyngeal mass. ENT evaluated patient and performed laryngoscopy and recommended steroid and IV abx for now. - Pharyngeal mass - Possibly pharyngeal abscess - ENT is following. Concerned about possible malignancy as well. - s/p Flexible laryngoscopy. Will continue Unasyn IV and Dexamethasone. - Currently maintaining airway, on 2L of O2 via NC. - MRSA bacteremia - D/C Clindamycin and start Vancomycin 1250mg Once and vancomycin pharmacy consult. Trough level 15-20. - Will consult ID as well. Will likely need echocardiogram as well. - COPD - continue DuoNeb. Full code. Heparin SQ. Wilian Sandhu DO Jun 02, 2017 15:20
[2017-06-02] MEDS: PANTOPRAZOLE SODIUM 40 MG VIAL IV PUSH SCH (15:34)
[2017-06-02] MEDS: ACETAMINOPHEN/HYDROcodone 325 MG/5 MG TAB PO PRN (21:29)
[2017-06-02] MEDS ORDERED: VANCOMYCIN INJ 1,250 MG in SODIUM CHLOR 0.9% 250 ML INJ 250 ML IV ONE (23:00)
[2017-06-02] MEDS ORDERED: Vancomycin Consult Pharmacy 1 EA OTHER SCH (23:00)
[2017-06-02] MEDS ORDERED: VANCOMYCIN INJ 2,300 MG in SODIUM CHLORID 0.9% 500 ML INJ 500 ML IV ONE (23:59)
[2017-06-03] VITALS (16 sets, daily range): BP systolic 113–180; BP diastolic 61–99; PULSE 75–101; RESP 20–28; TEMP 97.9–98.9; O2SAT 76–99
[2017-06-03] MEDS: LORazepam 2 MG/ML VIAL IV PUSH PRN ×3 (00:30→15:33)
[2017-06-03] MEDS: DEXAMETHASONE SOD PHOS 4 MG/ML VIAL IV SCH ×4 (00:30→22:56)
[2017-06-03] MEDS: AMPICILLIN/SULBAC 3 GM/NS 100 ML IV SCH ×6 (02:52→17:46)
[2017-06-03] MEDS: CHLORHEXIDINE GLUCONATE 2 % 1 PACK (2 CLOTHS)(taper/protocol) TOPICAL SCH (02:52)
[2017-06-03] MEDS: ACETAMINOPHEN/HYDROcodone 325 MG/5 MG TAB PO PRN (05:37)
[2017-06-03] MEDS: INSULIN ASPART SUPPLEMENTAL SCALE SQ SCH ×4 (07:29→21:00)
[2017-06-03] MEDS: SODIUM CHLORIDE 0.9% FLUSH 10 ML FLUSH IV FLUSH SCH ×2 (07:30→21:59)
--- NOTE | 2017-06-03 07:44 | PD.PN.STU ---
Subjective Remarks Follow up for pharyngeal mass/infection, MRSA bacteremia. Patient is doing well , she reports feeling better this morning than yesterday. No fever, dyspnea. She reports "some" chills. She cannot swallow any food, liquid or saliva. Nurse at bedside says patient will be moved to sit in chair later today. Objective Vitals Vital Signs Date Time Temp Pulse Resp B/P (MAP) Pulse Ox O2 Delivery O2 Flow Rate FiO2 06/03/17 06:00 82 06/03/17 04:00 98.9 82 22 165/99 (121) 99 06/03/17 04:00 82 06/03/17 02:00 79 06/03/17 00:00 98.5 78 25 165/71 (102) 98 06/03/17 00:00 78 06/02/17 22:00 74 06/02/17 20:00 90 06/02/17 20:00 99.0 90 20 156/71 (99) 99 06/02/17 18:00 85 06/02/17 16:00 88 06/02/17 16:00 88 20 149/66 (93) 98 06/02/17 15:00 82 06/02/17 14:00 88 06/02/17 13:00 84 19 151/67 (95) 98 06/02/17 13:00 84 06/02/17 12:00 88 06/02/17 12:00 88 18 166/70 (102) 96 06/02/17 11:12 97 06/02/17 11:12 97 20 159/69 (99) 98 06/02/17 11:00 110 06/02/17 11:00 110 37 164/108 (126) 06/02/17 10:00 85 06/02/17 10:00 85 20 148/56 (86) 97 06/02/17 09:00 85 20 143/61 (88) 96 06/02/17 09:00 85 06/02/17 08:52 96 Nasal Cannula 2.00 06/02/17 08:00 91 06/02/17 08:00 91 18 147/66 (93) 96 I/O 06/02/17 06/02/17 06/02/17 06/03/17 06/03/17 06/03/17 07:00 15:00 23:00 07:00 15:00 23:00 Intake Total 150 ml 250 ml 1003 ml Output Total 500 ml 350 ml Balance -350 ml -100 ml 1003 ml Intake Oral 100 ml 480 ml IV Total 150 ml 150 ml 523 ml Output Urine Total 500 ml 350 ml # Voids 4 # Bowel Movements 1 2 Result Diagram: 06/01/17 0510 06/01/17 0510 Other Results Last Impressions Neck CT 06/01/17 0435 Signed Impressions: Service Date/Time: Thursday, June 01, 2017 06:20 - CONCLUSION: 1. Findings suggestive left oral pharyngeal mass and concentric narrowing of the supraglottic airway at the level of the hyoid. 2. Incomplete evaluation of the oropharynx and hypopharynx due to motion/streak artifact. 3. Prominent gaseous distention of the upper thoracic esophagus. Patricio Lake MD Objective Remarks GENERAL: alert, oriented x3, NAD SKIN: Warm and dry. HEAD: Atraumatic. Normocephalic. EYES: Pupils equal and round. No scleral icterus. No injection or drainage. ENT: No nasal bleeding or discharge. Mucous membranes pink and moist. NECK: Trachea midline. No JVD. CARDIOVASCULAR: Regular rate and rhythm. RESPIRATORY: No accessory muscle use. Clear to auscultation. Breath sounds equal bilaterally. GASTROINTESTINAL: Abdomen soft, non-tender, nondistended. Hepatic and splenic margins not palpable. MUSCULOSKELETAL: Extremities without clubbing, cyanosis, or edema. No obvious deformities. A/P Assessment and Plan Ms. Dodd is a pleasant 66 year old female with a history of O2 dependent COPD who was admitted due to throat pain. Work up indicated possible pharyngeal mass. ENT evaluated patient and performed laryngoscopy and recommended steroid and IV abx for now. - Pharyngeal mass - Possibly pharyngeal abscess - ENT is following. Concern is infection vs malignancy vs allergic reaction - s/p Flexible laryngoscopy, will repeat today - Will continue Unasyn IV and Dexamethasone. - Currently maintaining airway, on 2L of O2 via NC. - MRSA bacteremia - Obtain trough level for Vancomycin - Will consult ID as well. Will likely need echocardiogram as well. -repeat CBC and other labs this am - Hypertension, uncontrolled -patient on 25mg metoprolol daily at home, will start today - COPD - continue DuoNeb. Full code. Heparin SQ. Discharge Planning D/C once pathology identified and cleared by ENT and ID Yazan Pena [id number] Jun 03, 2017 07:43
--- NOTE | 2017-06-03 07:58 | HHI.PR ---
Subjective Remarks Follow up for pharyngeal mass/infection, MRSA bacteremia. Patient is currently doing well. She feels better than yesterday. She is able to swallow. No fever chills. Currently on nasal cannula. Objective Vitals Vital Signs Date Time Temp Pulse Resp B/P (MAP) Pulse Ox O2 Delivery O2 Flow Rate FiO2 06/03/17 06:00 82 06/03/17 04:00 98.9 82 22 165/99 (121) 99 06/03/17 04:00 82 06/03/17 02:00 79 06/03/17 00:00 98.5 78 25 165/71 (102) 98 06/03/17 00:00 78 06/02/17 22:00 74 06/02/17 20:00 90 06/02/17 20:00 99.0 90 20 156/71 (99) 99 06/02/17 18:00 85 06/02/17 16:00 88 06/02/17 16:00 88 20 149/66 (93) 98 06/02/17 15:00 82 06/02/17 14:00 88 06/02/17 13:00 84 19 151/67 (95) 98 06/02/17 13:00 84 06/02/17 12:00 88 06/02/17 12:00 88 18 166/70 (102) 96 06/02/17 11:12 97 06/02/17 11:12 97 20 159/69 (99) 98 06/02/17 11:00 110 06/02/17 11:00 110 37 164/108 (126) 06/02/17 10:00 85 06/02/17 10:00 85 20 148/56 (86) 97 06/02/17 09:00 85 20 143/61 (88) 96 06/02/17 09:00 85 06/02/17 08:52 96 Nasal Cannula 2.00 06/02/17 08:00 91 06/02/17 08:00 91 18 147/66 (93) 96 I/O 06/02/17 06/02/17 06/02/17 06/03/17 06/03/17 06/03/17 07:00 15:00 23:00 07:00 15:00 23:00 Intake Total 150 ml 250 ml 1003 ml Output Total 500 ml 350 ml Balance -350 ml -100 ml 1003 ml Intake Oral 100 ml 480 ml IV Total 150 ml 150 ml 523 ml Output Urine Total 500 ml 350 ml # Voids 4 # Bowel Movements 1 2 Result Diagram: 06/01/17 0510 06/01/17 0510 Imaging Last Impressions Neck CT 06/01/17 0435 Signed Impressions: Service Date/Time: Thursday, June 01, 2017 06:20 - CONCLUSION: 1. Findings suggestive left oral pharyngeal mass and concentric narrowing of the supraglottic airway at the level of the hyoid. 2. Incomplete evaluation of the oropharynx and hypopharynx due to motion/streak artifact. 3. Prominent gaseous distention of the upper thoracic esophagus. Patricio Lake MD Objective Remarks GENERAL: Alert, NAD. Speaking in full sentences. SKIN: Warm and dry. HEAD: Normocephalic. EYES: No scleral icterus. No injection or drainage. NECK: Supple, trachea midline. No JVD or lymphadenopathy. CARDIOVASCULAR: Regular rate and rhythm without murmurs, gallops, or rubs. RESPIRATORY: Breath sounds equal bilaterally. No accessory muscle use. GASTROINTESTINAL: Abdomen soft, non-tender, nondistended. MUSCULOSKELETAL: No cyanosis, or edema. BACK: Nontender without obvious deformity. No CVA tenderness. Procedures Flexible laryngoscopy A/P Problem List: (1) Oropharyngeal mass ICD Code: R22.1 - Localized swelling, mass and lump, neck Status: Acute (2) MRSA bacteremia ICD Code: R78.81 - Bacteremia Assessment and Plan Ms. Dodd is a 66 year old female with a history of O2 dependent COPD who was admitted due to throat pain. Work up indicated possible pharyngeal mass. ENT evaluated patient and performed laryngoscopy and recommended steroid and IV abx for now. - Pharyngeal mass - Possibly pharyngeal abscess - ENT is following. Concerned about possible malignancy as well. - s/p Flexible laryngoscopy. Will continue Unasyn IV, vancomycin and Dexamethasone. - Currently maintaining airway, on 2L of O2 via NC. -Dr. Chambers will likely do surgical biopsy on 06/04/2017. - MRSA bacteremia -Continue vancomycin, pharmacy to dose. Trough level 15-20. -ID consult pending. Patient may need echocardiogram. -Thrombocytopenia -Patient thrombocytopenia is chronic. Currently 88K. Previously her numbers were 50-60K. - COPD - continue DuoNeb. Full code. Lovenox subcutaneous. Will hold Lovenox tomorrow morning. Wilian Sandhu DO Jun 03, 2017 7:58 am
[2017-06-03] MEDS ORDERED: HEPARIN SODIUM - SQ 10,000 UNITS/ML VIAL SQ SCH (09:00)
[2017-06-03] MEDS: ENOXAPARIN SODIUM 40 MG/0.4 ML SYRINGE SQ SCH (09:00)
[2017-06-03] MEDS: DOCUSATE SODIUM 50 MG/SENNA 8.6 MG TAB PO SCH ×2 (09:00→22:00)
[2017-06-03] MEDS: METOPROLOL TARTRATE 25 MG TAB PO SCH ×2 (10:16→22:00)
[2017-06-03] MEDS: NIFEdipine 60 MG SUSTAINED RELEASE TAB PO SCH (10:16)
[2017-06-03] MEDS: traMADol HCL 50 MG TAB PO PRN ×3 (11:42→22:00)
--- NOTE | 2017-06-03 14:01 | MB ---
cc: Eric Perry MD DATE: 06/03/2017 REQUESTING PHYSICIAN: Dr. Sandhu. REASON: Pharyngeal infection, MRSA bacteremia. HISTORY OF PRESENT ILLNESS: This is a 66-year-old white female who presented to the emergency department on 06/01/2017 because she was having difficulty with sore throat for 3 days and pain on swallowing and difficulty controlling her secretions. She also reported that she had elevated temperature of 101 degrees prior to being evaluated in the emergency department. She did not recall any shortness of breath and she states that the onset was sudden. She was evaluated in the Emergency Department. Her temperature was 99.4 degrees and white blood cell count was normal. CT scan of the neck was performed and it revealed a left oropharyngeal mass with concentric narrowing of the subglottic airway and incomplete evaluation of the oropharynx and hypopharynx due to motion forward/streak artifact. Blood cultures were taken and the blood culture had MRSA in each of 2 sets and a third set has Staph coagulase negative. The third set also has a bacillus species. A fourth set has no growth. The patient had a temperature of 101.1 degrees in the evening of 06/01/2017. She was evaluated by [facility] and she was found to have a significant amount of edema on the left of the upper airway and significant erythema of the left arytenoid and left epiglottis and left false vocal fold and the left piriformis sinus area. The patient denied a history of MRSA infection in the past. She has a history of chronic pain for which she takes pain medications. She denies IV drug use. Denies recent vascular procedure. She had been started on vancomycin yesterday evening. She was also started on ampicillin/sulbactam. Currently, she states that she feels better. She is able to swallow her secretions now. She has been given prednisone in addition to the antibiotics. The patient does not recall any upper respiratory symptoms before the occurrence of this difficulty swallowing. PAST MEDICAL HISTORY: 1. COPD. The patient uses home O2. 2. Coronary artery disease. 3. Chronic pain. 4. Fibromyalgia. 5. Lupus PAST SURGICAL HISTORY: Coronary artery bypass surgery, neck surgery, cholecystectomy, appendectomy, partial colectomy. ALLERGIES: AMLODIPINE. CELECOXIB. CODEINE. ENALAPRIL. GABAPENTIN. NAPROXEN. RAMIPRIL. ROFECOXIB. SUMATRIPTAN. PREGABALIN. MEDICATIONS: 1. Vancomycin. 2. Ampicillin/sulbactam. 3. Ultram. 4. Lovenox. 5. Procardia. 6. Lopressor. 7. Ativan p.r.n. 8. Decadron. SOCIAL HISTORY: Denies tobacco. The patient states that she smoked up until 2 years ago. Denies alcohol use. Denies illicit drugs. Lives alone. The patient is . 2 years ago. FAMILY HISTORY: Noncontributory. REVIEW OF SYSTEMS: CONSTITUTIONAL: Significant for fever. Denies chills or sweats. HEAD, EARS, EYES, NOSE AND THROAT: Denies visual blurring or diplopia. Denies nasal pain. Denies soreness of the throat . Complained of difficulty swallowing and soreness of the throat. RESPIRATORY: Denies cough or shortness of breath. CARDIOVASCULAR: Denies chest pain or palpitation. GASTROINTESTINAL: Denies nausea, vomiting, abdominal pain or diarrhea. GENITOURINARY: Denies urgency, frequency or dysuria. MUSCULOSKELETAL: Denies joint aches or muscle swelling. HEMATOPOIETIC: Denies easy bruising or bleeding. INTEGUMENTARY: Denies skin rash or itching. NEUROLOGIC: Denies problems with coordination or gait or balance. PSYCHIATRIC: Denies depression. PHYSICAL EXAMINATION: GENERAL: Reveals a well-developed female who is in no acute distress. She is awake and alert and oriented. VITAL SIGNS: Temperature 98.9, BP 141/83, heart rate 79, respirations 16. HEENT: Head is atraumatic. Extraocular movements are grossly intact. Pupils are dilated. No icterus. No conjunctival erythema. Nasal septum without visible lesions. Oropharynx: Moist mucosa. NECK: Supple. No adenopathy or swelling. LUNGS: Clear breath sounds. HEART: Regular S1, S2, without murmurs, rubs or gallops. ABDOMEN: Bowel sounds present. Soft, nontender. RECTAL: Not performed. EXTREMITIES: No clubbing, cyanosis or edema. SKIN: No rash. No nail hemorrhages. NEUROLOGIC: Nonfocal. PSYCHIATRIC: The patient is calm and cooperative. LABORATORY DATA: WBC 8.7, platelets 88,000, hemoglobin 12.5, 85% neutrophils. Differential includes 6% bands. Creatinine 0.81, estimated GFR 71, sodium 149. Nasal screen for MRSA positive. IMPRESSION: 1. Bacteremia due to methicillin-resistant staphylococcus aureus. Questionable source. The patient clinically does not appear septic. No recent vascular procedure and patient denies intravenous drug use. Two sets of the blood cultures are with methicillin-resistant staphylococcus aureus and two other sets have negative growth in one and bacillus species and staph coagulase negative in another. 2. Positive nasal test for methicillin-resistant staphylococcus aureus. 3. Pharyngitis. The patient is status post flexible laryngoscopy and noted to have significant swelling and erythema at the upper airway. 4. Possible allergic reaction with a severe bacterial pharyngitis. RECOMMENDATIONS: 1. Continue the vancomycin. 2. Continue ampicillin/sulbactam. 3. Repeat the blood cultures. 4. Monitor clinical response. 5. Consider additional workup if repeat blood cultures come back positive such as a 2-D echocardiogram. Thank you for this consultation. I will monitor the patient's progress and make further recommendations and followup if necessary. MD TAL Byrd/MEGHAN , 01:12 PM , 01:59 PM
[2017-06-03] MEDS: PANTOPRAZOLE SODIUM 40 MG VIAL IV PUSH SCH (15:34)
[2017-06-03] MEDS: VANCOMYCIN 1,500 MG/NS 500 ML IV SCH ×2 (18:00)
[2017-06-03] MEDS ORDERED: TEMAZEPAM 7.5 MG CAP PO ONE (23:00)
[2017-06-04] VITALS: BP 145/70; PULSE 76; RESP 19; TEMP 99.5; O2SAT 94
[2017-06-04] MEDS: AMPICILLIN/SULBAC 3 GM/NS 100 ML IV SCH ×6 (02:29→18:00)
[2017-06-04] MEDS: CHLORHEXIDINE GLUCONATE 2 % 1 PACK (2 CLOTHS)(taper/protocol) TOPICAL SCH (02:30)
[2017-06-04 04:00] VITALS: BP 166/74; PULSE 70; RESP 18; TEMP 97.7; O2SAT 95
[2017-06-04] MEDS ORDERED: FAMOTIDINE 20 MG/2 ML VIAL ONE (06:52)
[2017-06-04] MEDS ORDERED: SUGAMMADEX SODIUM 200 MG/2 ML VIAL IV PUSH ONE (06:58)
[2017-06-04 07:10] LABS: BASOPHIL % 0.2 % (0.0-2.0); EOSINOPHIL % 0.1 % (0.0-4.0); HEMATOCRIT 36.8 % (35.0-46.0); HEMOGLOBIN 12.5 GM/DL (11.6-15.3); LYMPH % 7.9 % (9.0-44.0); LYMPHOCYTE # 0.5 TH/MM3 (1.0-4.8); MEAN CELL VOLUME 95.4 FL (80.0-100.0); MEAN CORPUSCULAR HEMOGLOBIN 32.4 PG (27.0-34.0); MEAN CORPUSCULAR HGB CONC 33.9 % (32.0-36.0); MEAN PLATELET VOLUME 10.2 FL (7.0-11.0); MONO % 7.9 % (0.0-8.0); MONOCYTE # 0.5 TH/MM3 (0-0.9); NEUT % 83.9 % (16.0-70.0); PLATELET COUNT 85 TH/MM3 (150-450); RED BLOOD COUNT 3.85 MIL/MM3 (4.00-5.30); RED CELL DISTRIBUTION WIDTH 13.5 % (11.6-17.2); WHITE BLOOD COUNT 5.9 TH/MM3 (4.0-11.0)
[2017-06-04] MEDS ORDERED: OXYMETAZOLINE HCL 0.05% 15 ML NASAL SPRAY ONE (07:16)
[2017-06-04] MEDS ORDERED: *RESP: ALBUTEROL 2.5 MG/3 ML NEB (PRN) PERIprocedural Use ONLY NEB ONE (07:29)
[2017-06-04] MEDS ORDERED: DO NOT ADM ANY ANTICOAGULANT DRUGS PRN (07:32)
[2017-06-04 07:41] LABS: BICARBONATE 23.6 MEQ/L (21.0-32.0); CALCIUM 8.2 MG/DL (8.5-10.1); CREATININE 1.07 MG/DL (0.50-1.00)
[2017-06-04] MEDS: INSULIN ASPART SUPPLEMENTAL SCALE SQ SCH ×4 (08:00→21:00)
[2017-06-04 08:25] VITALS: BP 165/71; PULSE 77; RESP 18; TEMP 97.3; O2SAT 97
[2017-06-04] MEDS: SODIUM CHLORIDE 0.9% FLUSH 10 ML FLUSH IV FLUSH SCH ×2 (08:38→22:26)
[2017-06-04] MEDS: DOCUSATE SODIUM 50 MG/SENNA 8.6 MG TAB PO SCH ×2 (08:47→21:00)
[2017-06-04] MEDS: METOPROLOL TARTRATE 25 MG TAB PO SCH ×2 (08:47→22:21)
[2017-06-04] MEDS: NIFEdipine 60 MG SUSTAINED RELEASE TAB PO SCH (08:47)
[2017-06-04] MEDS: DEXAMETHASONE SOD PHOS 4 MG/ML VIAL IV SCH ×2 (08:48→16:15)
[2017-06-04] MEDS: LORazepam 2 MG/ML VIAL IV PUSH PRN (08:56)
--- NOTE | 2017-06-04 09:23 | MP ---
cc: Sarthak Chambers MD DATE OF OPERATION: 06/04/2017 PREOPERATIVE DIAGNOSIS: Hoarseness, odynophagia and neck mass. POSTOPERATIVE DIAGNOSIS: Hoarseness, odynophagia and neck mass. PROCEDURE PERFORMED: Direct laryngoscopy with biopsy. ANESTHESIA: General endotracheal anesthesia was used. COMPLICATIONS: None. BLOOD LOSS: None. SPECIMENS OBTAINED: Biopsies of the left vallecula, left epiglottis, left arytenoid and left piriform sinus. HISTORY OF PRESENT ILLNESS: This is a 66-year-old female with worsening dysphagia and odynophagia over the last week, she has had chronic throat pain for a while, but the odynophagia got so difficult that she was not able to swallow and therefore came into the emergency room and was admitted for edema of the pharynx. On exam in the ICU, she was noted to have small ulcerations on the left side of her pharynx. She has been treated with IV antibiotics and steroids throughout the week with only minimal improvement in the edema and no change in the ulcerations, therefore, she was taken to the operating room for biopsy and definitive diagnosis to rule out malignancy. The risks and benefits were described in detail to the patient. She understood these and wished to proceed as planned. DESCRIPTION OF OPERATIVE COURSE: After informed consent was obtained, the patient was taken to the operating room, placed on the operating table. General endotracheal anesthesia was initiated, following which the head of bed was turned approximately 90 degrees. The patient was then prepped and draped in standard surgical fashion. Once completed, an operative timeout was undertaken. Once everyone was in agreement, the surgery move forward as planned. The patient was edentulous and the upper gum line was protected with a wet Ray-Joann. A Kleinsasser laryngoscope was then inserted into the oral cavity. The oral cavity was investigated. There were no mass lesions or ulcerations. The oropharynx showed some edema and a friable area in the left vallecula extending down onto the left side of the epiglottis and then extending further along the epiglottis onto the aryepiglottic folds and onto the arytenoid with a larger mass involving the left side of the arytenoid and the piriform sinus. The right pharynx, right vallecula the right piriform sinuses were clear. The endolarynx revealed the false vocal fold was normal both bilaterally, as well as normal-appearing true vocal cords. The right side of the epiglottis both lingual and laryngeal surfaces were normal in appearance. The lesion did not appear to cross midline. Multiple biopsies were taken of this lesion at the left vallecula, left epiglottis, as well as the left arytenoid and left piriform sinus and sent for permanent section pathology. Afrin-soaked pledgets were placed into the pharynx to allow proper hemostasis to be obtained. These were then removed. The count was correct and once this was completed, the wet Ray-Joann was removed, the Kleinsasser was removed and the patient was awoken, extubated, and transferred to the PACU in stable condition. Sarthak Chambers MD ATT/DL , 08:44 AM , 09:21 AM
[2017-06-04 10:51] LABS: OVALOCYTES 1+ (NORMAL)
[2017-06-04 12:00] VITALS: BP 140/80; PULSE 64; RESP 18; TEMP 97.7; O2SAT 94
[2017-06-04] MEDS ORDERED: PROPOFOL 200 MG/20 ML AMP IV ONE (12:00)
[2017-06-04] MEDS ORDERED: SUCCINYLCHOLINE CHLORIDE 100 MG/5 ML SYRINGE IV PUSH ONE (12:00)
[2017-06-04] MEDS ORDERED: LIDOCAINE HCL 1% PF 5 ML SYRINGE OTHER ONE (12:00)
[2017-06-04] MEDS: VANCOMYCIN 1,500 MG/NS 500 ML IV SCH ×2 (12:35)
[2017-06-04] MEDS: traMADol HCL 50 MG TAB PO PRN ×2 (12:35→22:22)
[2017-06-04] MEDS ORDERED: POTASSIUM CHLORIDE 10 MEQ CONTROLLED RELEASE TAB PO ONE (15:00)
[2017-06-04] MEDS ORDERED: ALBUTEROL SULFATE 90 MCG/ACT HFA 8 GM INHALER INH PRN (15:15)
--- NOTE | 2017-06-04 15:15 | HHI.PR ---
Subjective Remarks States throat pain is much improved. Afebrile Denies chills Objective Vitals Vital Signs Date Time Temp Pulse Resp B/P (MAP) Pulse Ox O2 Delivery O2 Flow Rate FiO2 06/04/17 12:00 97.7 64 18 140/80 (100) 94 06/04/17 08:25 97.3 77 18 165/71 (102) 97 06/04/17 08:15 98.3 83 17 153/61 (91) 98 Nasal Cannula 2 06/04/17 08:00 76 17 141/65 (90) 95 Nasal Cannula 2 06/04/17 07:45 81 17 137/63 (87) 98 Nasal Cannula 2 06/04/17 07:36 98.3 96 17 136/63 (87) 98 T-Piece 15 06/04/17 04:00 97.7 70 18 166/74 (104) 95 06/04/17 04:00 Room Air 06/04/17 00:00 Room Air 06/04/17 00:00 99.5 76 19 145/70 (95) 94 06/03/17 20:00 98.9 100 20 130/67 (88) 93 06/03/17 20:00 Room Air 06/03/17 18:32 78 06/03/17 18:20 97.9 75 20 113/66 (82) 92 06/03/17 17:01 83 06/03/17 17:01 83 22 132/61 (84) 06/03/17 16:09 91 06/03/17 16:09 91 23 138/61 (86) 06/03/17 16:00 101 06/03/17 16:00 101 23 76 I/O 06/03/17 06/03/17 06/03/17 06/04/17 06/04/17 06/04/17 07:00 15:00 23:00 07:00 15:00 23:00 Intake Total 1003 ml 935 ml 100 ml 250 ml Output Total 800 ml 700 ml Balance 1003 ml 135 ml -600 ml 250 ml Intake Oral 480 ml 420 ml 0 ml IV Total 523 ml 515 ml 100 ml 50 ml Other 200 ml Output Urine Total 800 ml 700 ml # Voids 4 # Bowel Movements 2 2 2 Result Diagram: 06/04/17 0541 06/04/17 0541 Imaging Last Impressions Neck CT 06/01/17 0435 Signed Impressions: Service Date/Time: Thursday, June 01, 2017 06:20 - CONCLUSION: 1. Findings suggestive left oral pharyngeal mass and concentric narrowing of the supraglottic airway at the level of the hyoid. 2. Incomplete evaluation of the oropharynx and hypopharynx due to motion/streak artifact. 3. Prominent gaseous distention of the upper thoracic esophagus. Patricio Lake MD Objective Remarks AAOx3 nad Clear lungs clear throat without erythema or exudates S1S2 RRR abdomen soft no edema in extremities Procedures Flexible laryngoscopy Medications and IVs Current Medications Medications (Trade) Dose Ordered Sig/Dennis Route Start Time Stop Time Status Last Admin (NS Flush) 2 ml UNSCH PRN IV FLUSH 06/01/17 09:45 (NS Flush) 2 ml BID IV FLUSH 06/01/17 21:00 06/04/17 08:38 (Zofran Inj) 4 mg Q6H PRN IVP 06/01/17 10:00 06/02/17 21:29 (Narcan Inj) 0.4 mg UNSCH PRN IV PUSH 06/01/17 09:45 (Tegan-Colace) 1 tab BID PO 06/01/17 21:00 06/04/17 08:47 (Milk Of Magnesia Liq) 30 ml Q12H PRN PO 06/01/17 10:00 (Senokot) 17.2 mg Q12H PRN PO 06/01/17 10:00 (Dulcolax Supp) 10 mg DAILY PRN RECTAL 06/01/17 10:00 (Lactulose Liq) 30 ml DAILY PRN PO 06/01/17 10:00 Ampicillin Sodium/ Sulbactam Sodium 3 gm/Sodium Chloride 100 ml @ 200 mls/hr Q8H IV 06/01/17 18:00 06/04/17 10:06 (Decadron Inj) 6 mg Q8H IV 06/01/17 16:00 06/04/17 08:48 (Protonix Inj) 40 mg Q24H IV PUSH 06/01/17 15:00 06/03/17 15:34 (Duoneb Neb) 1 ampule Q8HR NEB PRN NEB 06/01/17 15:00 (D50w (Vial) Inj) 50 ml UNSCH PRN IV PUSH 06/01/17 14:45 (Glucagon Inj) 1 mg UNSCH PRN OTHER 06/01/17 14:45 (NovoLOG SUPPLEMENTAL SCALE) 1 ACHS SLIDING SCALE SQ 06/01/17 17:00 06/02/17 21:00 (Lopressor Inj) 5 mg Q6H PRN IV PUSH 06/01/17 16:15 06/01/17 16:31 (Ativan Inj) 1 mg Q4H PRN IV PUSH 06/01/17 16:15 06/04/17 08:56 (Apresoline Inj) 10 mg Q6HR PRN IV PUSH 06/01/17 18:30 06/02/17 02:52 Miscellaneous Information Patient in critical care unit? Ass... [id number] .XX 06/02/17 03:00 (Chlorhexidine 2% Cloth) 3 pack DAILY@04 TOPICAL 06/02/17 04:00 06/06/17 04:01 06/04/17 02:30 (Chlorhexidine 2% Cloth) 3 pack UNSCH PRN TOPICAL 06/02/17 03:00 06/07/17 02:46 (Tylenol) 500 mg Q6H PRN PO 06/02/17 12:00 Pharmacy Profile Note 0 ml @ 0 mls/hr UNSCH OTHER 06/02/17 23:00 (Procardia Xl) 60 mg DAILY PO 06/03/17 09:00 06/04/17 08:47 (Lopressor) 12.5 mg Q12HR PO 06/03/17 09:00 06/04/17 08:47 Vancomycin HCl 1500 mg/Sodium Chloride 515 ml @ 257.5 mls/ hr Q18H IV 06/03/17 18:00 06/04/17 12:35 Miscellaneous Information SPECIFIC LAB TO BE DRAWN:VANCO TROUGH DATE TO... ONCE ONCE .XX 06/05/17 05:45 06/05/17 05:46 (Ultram) 50 mg Q8H PRN PO 06/03/17 10:00 06/04/17 12:35 Miscellaneous Information ALL NURSING DEPARTME... UNSCH PRN .XX 06/04/17 07:32 06/05/17 07:31 A/P Problem List: (1) Oropharyngeal mass ICD Code: R22.1 - Localized swelling, mass and lump, neck Status: Acute Plan: Ms. Dodd is a 66 year old female with a history of O2 dependent COPD who was admitted due to throat pain. Work up indicated possible pharyngeal mass. ENT evaluated patient and performed laryngoscopy and recommended steroid and IV abx for now. The consulted. Concerned about possible malignancy as well. Status post flexible laryngoscopy. Continue IV antibiotics as per ID recommendations. The patient currently on IV vancomycin IV Unasyn and dexamethasone. Continue supplemental O2 to keep oxygen saturation more than 92%. -Dr. Chambers will likely do surgical biopsy on 06/04/2017. (2) MRSA bacteremia ICD Code: R78.81 - Bacteremia Plan: Blood cultures positive for MRSA. Continue IV antibiotics as per ID. Repeat blood cultures negative 1 day (3) Thrombocytopenia ICD Code: D69.6 - Thrombocytopenia, unspecified (4) COPD (chronic obstructive pulmonary disease) ICD Code: J44.9 - Chronic obstructive pulmonary disease, unspecified Plan: Continue DuoNeb. Does not seem to be an exacerbation. (5) CAD (coronary artery disease) ICD Code: I25.10 - Atherosclerotic heart disease of [place] coronary artery without angina pectoris Plan: Hold aspirin and Plavix since patient had direct laryngoscopy with biopsy today. We will resume in a.m. if there is no evidence of bleeding. Continue beta-cristal Assessment and Plan DVT proph: Resume Lovenox SQ Discharge Planning Pending negative blood cultures and ID clearance. Problem Qualifiers (1) CAD (coronary artery disease): Qualified Codes: I25.10 - Atherosclerotic heart disease of [place] coronary artery without angina pectoris Ayo Ennis MD Jun 04, 2017 15:15
[2017-06-04 16:00] VITALS: BP 126/68; PULSE 66; RESP 18; TEMP 97.9; O2SAT 98
[2017-06-04] MEDS: PANTOPRAZOLE SODIUM 40 MG VIAL IV PUSH SCH (16:14)
--- NOTE | 2017-06-04 16:53 | HHI.IDPN ---
Note Infectious Disease Note Patient states she feels okay. Reported that she had chills last night. No other complaints. States that her swallowing is better. Afebrile. Repeat blood cultures pending. 66-year-old white female who presented to the emergency department on 06/01/2017 because she was having difficulty with sore throat for 3 days and pain on swallowing and difficulty controlling her secretions. She also reported that she had elevated temperature of 101 degrees prior to being evaluated in the emergency department. She did not recall any shortness of breath and she states that the onset was sudden. Blood cultures were taken and the blood culture had MRSA in each of 2 sets and a third set has Staph coagulase negative. The third set also has a bacillus species. A fourth set has no growth. She was evaluated by [facility] and she was found to have a significant amount of edema on the left of the upper airway and significant erythema of the left arytenoid and left epiglottis and left false vocal fold and the left piriformis sinus area. PAST MEDICAL HISTORY: 1. COPD. The patient uses home O2. 2. Coronary artery disease. 3. Chronic pain. 4. Fibromyalgia. 5. Lupus PAST SURGICAL HISTORY: Coronary artery bypass surgery, neck surgery, cholecystectomy, appendectomy, partial colectomy. ALLERGIES: AMLODIPINE. CELECOXIB. CODEINE. ENALAPRIL. GABAPENTIN. NAPROXEN. RAMIPRIL. ROFECOXIB. SUMATRIPTAN. PREGABALIN. Current Medications Medications (Trade) Dose Ordered Sig/Dennis Route PRN Reason Start Time Stop Time Status Last Admin Dose Admin Sodium Chloride (NS Flush) 2 ml UNSCH PRN IV FLUSH FLUSH AFTER USING IV ACCESS 06/01/17 09:45 Sodium Chloride (NS Flush) 2 ml BID IV FLUSH 06/01/17 21:00 06/04/17 08:38 Ondansetron HCl (Zofran Inj) 4 mg Q6H PRN IVP NAUSEA OR VOMITING 06/01/17 10:00 06/02/17 21:29 Naloxone HCl (Narcan Inj) 0.4 mg UNSCH PRN IV PUSH SEE LABEL COMMENTS 06/01/17 09:45 Senna/Docusate Sodium (Tegan-Colace) 1 tab BID PO 06/01/17 21:00 06/04/17 08:47 Magnesium Hydroxide (Milk Of Magnesia Liq) 30 ml Q12H PRN PO Mild constipation 06/01/17 10:00 Sennosides (Senokot) 17.2 mg Q12H PRN PO Moderate constipation 06/01/17 10:00 Bisacodyl (Dulcolax Supp) 10 mg DAILY PRN RECTAL SEVERE CONSITIPATION 06/01/17 10:00 Lactulose (Lactulose Liq) 30 ml DAILY PRN PO SEVERE CONSITIPATION 06/01/17 10:00 Ampicillin Sodium/ Sulbactam Sodium 3 gm/Sodium Chloride 100 ml @ 200 mls/hr Q8H IV 06/01/17 18:00 06/04/17 10:06 Dexamethasone Sodium Phosphate (Decadron Inj) 6 mg Q8H IV 06/01/17 16:00 06/04/17 16:15 Pantoprazole Sodium (Protonix Inj) 40 mg Q24H IV PUSH 06/01/17 15:00 06/04/17 16:14 Albuterol/ Ipratropium (Duoneb Neb) 1 ampule Q8HR NEB PRN NEB dyspnea 06/01/17 15:00 Dextrose (D50w (Vial) Inj) 50 ml UNSCH PRN IV PUSH HYPOGLYCEMIA-SEE COMMENTS 06/01/17 14:45 Glucagon (Glucagon Inj) 1 mg UNSCH PRN OTHER HYPOGLYCEMIA-SEE COMMENTS 06/01/17 14:45 Insulin Aspart (NovoLOG SUPPLEMENTAL SCALE) 1 ACHS SLIDING SCALE SQ 06/01/17 17:00 06/02/17 21:00 Metoprolol Tartrate (Lopressor Inj) 5 mg Q6H PRN IV PUSH SBP>160, DBP>90 06/01/17 16:15 06/01/17 16:31 Lorazepam (Ativan Inj) 1 mg Q4H PRN IV PUSH anxiety 06/01/17 16:15 06/04/17 08:56 Hydralazine HCl (Apresoline Inj) 10 mg Q6HR PRN IV PUSH SBP>160, DBP>90 06/01/17 18:30 06/02/17 02:52 Miscellaneous Information Patient in critical care unit? Ass... Q361D .XX 06/02/17 03:00 Chlorhexidine Gluconate (Chlorhexidine 2% Cloth) 3 pack DAILY@04 TOPICAL 06/02/17 04:00 06/06/17 04:01 06/04/17 02:30 Chlorhexidine Gluconate (Chlorhexidine 2% Cloth) 3 pack UNSCH PRN TOPICAL HYGIENIC CARE 06/02/17 03:00 06/07/17 02:46 Acetaminophen (Tylenol) 500 mg Q6H PRN PO Headache, fever, pain 1-4 06/02/17 12:00 Pharmacy Profile Note 0 ml @ 0 mls/hr UNSCH OTHER 06/02/17 23:00 Nifedipine (Procardia Xl) 60 mg DAILY PO 06/03/17 09:00 06/04/17 08:47 Metoprolol Tartrate (Lopressor) 12.5 mg Q12HR PO 06/03/17 09:00 06/04/17 08:47 Vancomycin HCl 1500 mg/Sodium Chloride 515 ml @ 257.5 mls/ hr Q18H IV 06/03/17 18:00 06/04/17 12:35 Miscellaneous Information SPECIFIC LAB TO BE DRAWN:VANCO TROUGH DATE TO... ONCE ONCE .XX 06/05/17 05:45 06/05/17 05:46 Tramadol HCl (Ultram) 50 mg Q8H PRN PO PAIN SCALE 5 TO 10 06/03/17 10:00 06/04/17 12:35 Miscellaneous Information ALL NURSING DEPARTME... UNSCH PRN .XX SEE LABEL COMMENTS 06/04/17 07:32 06/05/17 07:31 Albuterol Sulfate (Proair Hfa Inh) 2 puff Q6H PRN INH SHORTNESS OF BREATH 06/04/17 15:15 UNV Alprazolam (Xanax) 0.25 mg TID PRN PO ANXIETY 06/04/17 15:15 UNV Docusate Sodium (Colace) 100 mg BID PO 06/04/17 21:00 UNV Fluticasone Propionate (Flonase Alen Spr) 2 spray BID EACH NARE 06/04/17 21:00 UNV Furosemide (Lasix) 40 mg BID PO 06/04/17 21:00 UNV Non-Formulary Medication 1 drop DAILY EACH EYE 06/04/17 15:15 UNV Non-Formulary Medication 150 mg HS PO 06/04/17 21:00 UNV Objective. Vital Signs Date Time Temp Pulse Resp B/P (MAP) Pulse Ox O2 Delivery O2 Flow Rate FiO2 06/04/17 16:00 97.9 66 18 126/68 (87) 98 06/04/17 12:00 97.7 64 18 140/80 (100) 94 06/04/17 08:25 97.3 77 18 165/71 (102) 97 06/04/17 08:15 98.3 83 17 153/61 (91) 98 Nasal Cannula 2 06/04/17 08:00 76 17 141/65 (90) 95 Nasal Cannula 2 06/04/17 07:45 81 17 137/63 (87) 98 Nasal Cannula 2 06/04/17 07:36 98.3 96 17 136/63 (87) 98 T-Piece 15 06/04/17 04:00 97.7 70 18 166/74 (104) 95 06/04/17 04:00 Room Air 06/04/17 00:00 Room Air 06/04/17 00:00 99.5 76 19 145/70 (95) 94 06/03/17 20:00 98.9 100 20 130/67 (88) 93 06/03/17 20:00 Room Air 06/03/17 18:32 78 06/03/17 18:20 97.9 75 20 113/66 (82) 92 06/03/17 17:01 83 06/03/17 17:01 83 22 132/61 (84) Vital Signs Date Time Temp Pulse Resp B/P (MAP) Pulse Ox O2 Delivery O2 Flow Rate FiO2 06/04/17 16:00 97.9 66 18 126/68 (87) 98 06/04/17 12:00 97.7 64 18 140/80 (100) 94 06/04/17 08:25 97.3 77 18 165/71 (102) 97 06/04/17 08:15 98.3 83 17 153/61 (91) 98 Nasal Cannula 2 06/04/17 08:00 76 17 141/65 (90) 95 Nasal Cannula 2 06/04/17 07:45 81 17 137/63 (87) 98 Nasal Cannula 2 06/04/17 07:36 98.3 96 17 136/63 (87) 98 T-Piece 15 06/04/17 04:00 97.7 70 18 166/74 (104) 95 06/04/17 04:00 Room Air 06/04/17 00:00 Room Air 06/04/17 00:00 99.5 76 19 145/70 (95) 94 06/03/17 20:00 98.9 100 20 130/67 (88) 93 06/03/17 20:00 Room Air 06/03/17 18:32 78 06/03/17 18:20 97.9 75 20 113/66 (82) 92 06/03/17 17:01 83 06/03/17 17:01 83 22 132/61 (84) Laboratory Tests Test 06/04/17 05:41 White Blood Count 5.9 TH/MM3 Red Blood Count 3.85 MIL/MM3 Hemoglobin 12.5 GM/DL Hematocrit 36.8 % Mean Corpuscular Volume 95.4 FL Mean Corpuscular Hemoglobin 32.4 PG Mean Corpuscular Hemoglobin Concent 33.9 % Red Cell Distribution Width 13.5 % Platelet Count 85 TH/MM3 Mean Platelet Volume 10.2 FL Neutrophils (%) (Auto) 83.9 % Lymphocytes (%) (Auto) 7.9 % Monocytes (%) (Auto) 7.9 % Eosinophils (%) (Auto) 0.1 % Basophils (%) (Auto) 0.2 % Neutrophils # (Auto) 5.0 TH/MM3 Lymphocytes # (Auto) 0.5 TH/MM3 Monocytes # (Auto) 0.5 TH/MM3 Eosinophils # (Auto) 0.0 TH/MM3 Basophils # (Auto) 0.0 TH/MM3 CBC Comment AUTO DIFF Differential Comment AUTO DIFF CONFIRMED Platelet Estimate LOW Platelet Morphology Comment NORMAL Ovalocytes 1+ Blood Urea Nitrogen 29 MG/DL Creatinine 1.07 MG/DL Random Glucose 139 MG/DL Calcium Level 8.2 MG/DL Sodium Level 143 MEQ/L Potassium Level 3.4 MEQ/L Chloride Level 110 MEQ/L Carbon Dioxide Level 23.6 MEQ/L Anion Gap 9 MEQ/L Estimat Glomerular Filtration Rate 51 ML/MIN PHYSICAL EXAMINATION: GENERAL: No acute distress. She is awake and alert and oriented. HEENT: Head is atraumatic. Extraocular movements are grossly intact. No icterus. No conjunctival erythema. Nasal septum without visible lesions. Oropharynx: Moist mucosa. NECK: Supple. No adenopathy or swelling. LUNGS: Breath sounds are clear. HEART: Regular S1, S2, without murmurs, rubs or gallops. ABDOMEN: Bowel sounds present. Soft, nontender. EXTREMITIES: No clubbing, cyanosis or edema. SKIN: No rash. No nail hemorrhages. NEUROLOGIC: Nonfocal. PSYCHIATRIC: Calm and cooperative. IMPRESSION: 1. Bacteremia due to methicillin-resistant staphylococcus aureus. Questionable source. Two sets of the blood cultures are with methicillin-resistant staphylococcus aureus. 2. Positive nasal test for methicillin-resistant staphylococcus aureus. 3. Pharyngitis. The patient is status post flexible laryngoscopy and noted to have significant swelling and erythema at the upper airway. RECOMMENDATIONS: 1. Continue the vancomycin. 2. Stop ampicillin/sulbactam. 3. Monitor repeat blood cultures. If the repeat blood cultures comes back positive. Further workup would be necessary. If the repeat blood cultures is negative at 5 days, patient can be treated with 10 days of vancomycin IV. This plan has been discussed with Dr. Morillo. Please call ID if the blood culture comes back positive for MRSA. I would be off beginning tomorrow for the next week. Other ID doctor covering. Eric Perry MD Jun 04, 2017 16:53
[2017-06-04] MEDS: ALPRAZolam 0.25 MG TAB PO PRN (18:24)
[2017-06-04 20:00] VITALS: BP 155/67; PULSE 63; RESP 20; TEMP 98.4; O2SAT 97
[2017-06-04] MEDS: FLUTICASONE PROPIONATE 50 MCG/ACT 16 GM NASAL SPRAY EACH NARE SCH (22:20)
[2017-06-04] MEDS: DOCUSATE SODIUM 100 MG CAP PO SCH (22:21)
[2017-06-04] MEDS: FUROSEMIDE 40 MG TAB PO SCH (22:23)
[2017-06-04] MEDS: traZODone HCL 50 MG TAB PO SCH (22:28)
[2017-06-05] VITALS: BP 133/57; PULSE 54; RESP 19; TEMP 98.1; O2SAT 98
[2017-06-05] MEDS: DEXAMETHASONE SOD PHOS 4 MG/ML VIAL IV SCH ×4 (01:29→23:58)
[2017-06-05] MEDS: CHLORHEXIDINE GLUCONATE 2 % 1 PACK (2 CLOTHS)(taper/protocol) TOPICAL SCH (01:30)
[2017-06-05] MEDS: AMPICILLIN/SULBAC 3 GM/NS 100 ML IV SCH ×6 (01:30→17:20)
[2017-06-05 04:00] VITALS: BP 120/80; PULSE 60; RESP 20; TEMP 98.4; O2SAT 98
[2017-06-05] MEDS ORDERED: PHARMACY ORDERED LAB ONE (05:45)
[2017-06-05] MEDS: VANCOMYCIN 1,500 MG/NS 500 ML IV SCH ×4 (05:48→23:58)
[2017-06-05] MEDS: traMADol HCL 50 MG TAB PO PRN ×2 (05:54→14:52)
[2017-06-05] MEDS: ALPRAZolam 0.25 MG TAB PO PRN ×3 (06:25→22:41)
[2017-06-05 08:00] VITALS: BP 119/84; PULSE 87; RESP 20; TEMP 97.8; O2SAT 96
[2017-06-05] MEDS: INSULIN ASPART SUPPLEMENTAL SCALE SQ SCH ×4 (08:00→21:00)
[2017-06-05] MEDS: DOCUSATE SODIUM 50 MG/SENNA 8.6 MG TAB PO SCH ×2 (09:00→21:00)
[2017-06-05] MEDS: SODIUM CHLORIDE 0.9% FLUSH 10 ML FLUSH IV FLUSH SCH ×2 (09:00→21:00)
[2017-06-05] MEDS: FLUTICASONE PROPIONATE 50 MCG/ACT 16 GM NASAL SPRAY EACH NARE SCH ×2 (09:00→21:00)
[2017-06-05] MEDS: METOPROLOL TARTRATE 25 MG TAB PO SCH ×2 (10:19→21:00)
[2017-06-05] MEDS: NIFEdipine 60 MG SUSTAINED RELEASE TAB PO SCH (10:19)
[2017-06-05] MEDS: DOCUSATE SODIUM 100 MG CAP PO SCH ×2 (10:19→21:00)
[2017-06-05] MEDS: FUROSEMIDE 40 MG TAB PO SCH ×2 (10:22→21:00)
[2017-06-05] MEDS: OLOPATADINE HCL 0.1% OPHT SOLN 5 ML BTL EACH EYE SCH (10:27)
[2017-06-05 12:00] VITALS: BP 136/61; PULSE 53; RESP 18; TEMP 98.2; O2SAT 98
[2017-06-05] MEDS: MUPIROCIN 2% OINT 22 GM TUBE TOPICAL SCH ×2 (12:00→21:00)
[2017-06-05] MEDS: PANTOPRAZOLE SODIUM 40 MG VIAL IV PUSH SCH (12:54)
--- NOTE | 2017-06-05 13:05 | HHI.PR ---
Subjective Remarks The patient states that she feels much better. Denies cp/sob. Denies fevers, chills. Complains of some sore throat. Objective Vitals Vital Signs Date Time Temp Pulse Resp B/P (MAP) Pulse Ox O2 Delivery O2 Flow Rate FiO2 06/05/17 12:00 98.2 53 18 136/61 (86) 98 06/05/17 08:00 97.8 87 20 119/84 (96) 96 06/05/17 04:00 98.4 60 20 120/80 (93) 98 06/05/17 00:00 98.1 54 19 133/57 (82) 98 06/04/17 21:00 Nasal Cannula 2.00 06/04/17 20:00 98.4 63 20 155/67 (96) 97 06/04/17 16:00 97.9 66 18 126/68 (87) 98 I/O 06/04/17 06/04/17 06/04/17 06/05/17 06/05/17 06/05/17 07:00 15:00 23:00 07:00 15:00 23:00 Intake Total 100 ml 250 ml 480 ml 680 ml Output Total 700 ml 400 ml Balance -600 ml 250 ml 480 ml 280 ml Intake Oral 0 ml 480 ml 680 ml IV Total 100 ml 50 ml Other 200 ml Output Urine Total 700 ml 400 ml # Voids 4 3 # Bowel Movements 2 1 Result Diagram: 06/04/17 0541 06/04/17 0541 Imaging Last Impressions Neck CT 06/01/17 0435 Signed Impressions: Service Date/Time: Thursday, June 01, 2017 06:20 - CONCLUSION: 1. Findings suggestive left oral pharyngeal mass and concentric narrowing of the supraglottic airway at the level of the hyoid. 2. Incomplete evaluation of the oropharynx and hypopharynx due to motion/streak artifact. 3. Prominent gaseous distention of the upper thoracic esophagus. Patricio Lake MD Objective Remarks AAOx3 nad Clear lungs clear throat without erythema or exudates S1S2 RRR abdomen soft no edema in extremities Procedures Flexible laryngoscopy Medications and IVs Current Medications Medications (Trade) Dose Ordered Sig/Dennis Route Start Time Stop Time Status Last Admin (NS Flush) 2 ml UNSCH PRN IV FLUSH 06/01/17 09:45 (NS Flush) 2 ml BID IV FLUSH 06/01/17 21:00 06/05/17 09:00 (Zofran Inj) 4 mg Q6H PRN IVP 06/01/17 10:00 06/02/17 21:29 (Narcan Inj) 0.4 mg UNSCH PRN IV PUSH 06/01/17 09:45 (Tegan-Colace) 1 tab BID PO 06/01/17 21:00 06/05/17 09:00 (Milk Of Magnesia Liq) 30 ml Q12H PRN PO 06/01/17 10:00 (Senokot) 17.2 mg Q12H PRN PO 06/01/17 10:00 (Dulcolax Supp) 10 mg DAILY PRN RECTAL 06/01/17 10:00 (Lactulose Liq) 30 ml DAILY PRN PO 06/01/17 10:00 Ampicillin Sodium/ Sulbactam Sodium 3 gm/Sodium Chloride 100 ml @ 200 mls/hr Q8H IV 06/01/17 18:00 06/05/17 10:21 (Decadron Inj) 6 mg Q8H IV 06/01/17 16:00 06/05/17 08:00 (Protonix Inj) 40 mg Q24H IV PUSH 06/01/17 15:00 06/05/17 12:54 (Duoneb Neb) 1 ampule Q8HR NEB PRN NEB 06/01/17 15:00 (D50w (Vial) Inj) 50 ml UNSCH PRN IV PUSH 06/01/17 14:45 (Glucagon Inj) 1 mg UNSCH PRN OTHER 06/01/17 14:45 (NovoLOG SUPPLEMENTAL SCALE) 1 ACHS SLIDING SCALE SQ 06/01/17 17:00 06/02/17 21:00 (Lopressor Inj) 5 mg Q6H PRN IV PUSH 06/01/17 16:15 06/01/17 16:31 (Ativan Inj) 1 mg Q4H PRN IV PUSH 06/01/17 16:15 06/04/17 08:56 (Apresoline Inj) 10 mg Q6HR PRN IV PUSH 06/01/17 18:30 06/02/17 02:52 Miscellaneous Information Patient in critical care unit? Ass... Q361D .XX 06/02/17 03:00 (Chlorhexidine 2% Cloth) 3 pack DAILY@04 TOPICAL 06/02/17 04:00 06/06/17 04:01 06/04/17 02:30 (Chlorhexidine 2% Cloth) 3 pack UNSCH PRN TOPICAL 06/02/17 03:00 06/07/17 02:46 (Tylenol) 500 mg Q6H PRN PO 06/02/17 12:00 Pharmacy Profile Note 0 ml @ 0 mls/hr UNSCH OTHER 06/02/17 23:00 (Procardia Xl) 60 mg DAILY PO 06/03/17 09:00 06/05/17 10:19 (Lopressor) 12.5 mg Q12HR PO 06/03/17 09:00 06/05/17 10:19 Vancomycin HCl 1500 mg/Sodium Chloride 515 ml @ 257.5 mls/ hr Q18H IV 06/03/17 18:00 06/05/17 05:48 (Ultram) 50 mg Q8H PRN PO 06/03/17 10:00 06/05/17 05:54 (Proair Hfa Inh) 2 puff Q6H PRN INH 06/04/17 15:15 06/05/17 10:26 (Xanax) 0.25 mg TID PRN PO 06/04/17 15:15 06/05/17 06:25 (Colace) 100 mg BID PO 06/04/17 21:00 06/05/17 10:19 (Flonase Alen Spr) 2 spray BID EACH NARE 06/04/17 21:00 06/05/17 09:00 (Lasix) 40 mg BID PO 06/04/17 21:00 06/05/17 10:22 (Patanol 0.1% Opth) 1 drop DAILY EACH EYE 06/05/17 09:00 06/05/17 10:27 (Desyrel) 150 mg HS PO 06/04/17 21:00 06/04/17 22:28 (Bactroban 2% Oint) 1 applic Q12HR TOPICAL 06/05/17 12:00 A/P Problem List: (1) Oropharyngeal mass ICD Code: R22.1 - Localized swelling, mass and lump, neck Status: Acute Plan: Ms. Dodd is a 66 year old female with a history of O2 dependent COPD who was admitted due to throat pain. Work up indicated possible pharyngeal mass. ENT evaluated patient and performed laryngoscopy and recommended steroid and IV abx for now. The consulted. Concerned about possible malignancy as well. Status post flexible laryngoscopy. Continue IV antibiotics as per ID recommendations. The patient currently on IV vancomycin IV Unasyn and dexamethasone. Continue supplemental O2 to keep oxygen saturation more than 92%. - Sp surgical biopsy on 06/04 ---> results pending (2) MRSA bacteremia ICD Code: R78.81 - Bacteremia Plan: Blood cultures positive for MRSA. Continue IV antibiotics as per ID. Repeat blood cultures negative 1 day Bactroban to nares x 7 days since MRSA nasal screen positive. discussed case with Dr spivey on 05/07, states patient will need to have negative repeat blood cultures prior to discharge. (3) Thrombocytopenia ICD Code: D69.6 - Thrombocytopenia, unspecified Plan: Platelets stable. Continue to monitor cbc. No evidence of active bleeding. Reactive to infections? (4) COPD (chronic obstructive pulmonary disease) ICD Code: J44.9 - Chronic obstructive pulmonary disease, unspecified Plan: Continue DuoNeb. Does not seem to be an exacerbation. (5) CAD (coronary artery disease) ICD Code: I25.10 - Atherosclerotic heart disease of [place] coronary artery without angina pectoris Plan: Hold aspirin and Plavix since patient had direct laryngoscopy with biopsy today. We will resume in a.m. if there is no evidence of bleeding. Continue beta-cristal 06/05 resume aspirin and Plavix. Assessment and Plan DVT proph: Resume Lovenox SQ Discharge Planning Pending negative blood cultures and ID clearance. Problem Qualifiers (1) CAD (coronary artery disease): Qualified Codes: I25.10 - Atherosclerotic heart disease of [place] coronary artery without angina pectoris Ayo Ennis MD Jun 05, 2017 13:05
[2017-06-05] MEDS: ONDANSETRON HCL 4 MG/2 ML VIAL IVP PRN (14:50)
[2017-06-05 16:00] VITALS: BP 124/60; PULSE 53; RESP 18; TEMP 97.6; O2SAT 98
[2017-06-05 18:14] LABS: AUTOMATED NEUTROPHIL # 3.9 TH/MM3 (1.8-7.7); BASOPHIL % 0.1 % (0.0-2.0); EOSINOPHIL % 0.1 % (0.0-4.0); HEMATOCRIT 33.9 % (35.0-46.0); HEMOGLOBIN 11.9 GM/DL (11.6-15.3); LYMPH % 9.9 % (9.0-44.0); LYMPHOCYTE # 0.5 TH/MM3 (1.0-4.8); MEAN CELL VOLUME 95.3 FL (80.0-100.0); MEAN CORPUSCULAR HEMOGLOBIN 33.6 PG (27.0-34.0); MEAN CORPUSCULAR HGB CONC 35.2 % (32.0-36.0); MEAN PLATELET VOLUME 10.7 FL (7.0-11.0); MONOCYTE # 0.3 TH/MM3 (0-0.9); NEUT % 83.9 % (16.0-70.0); PLATELET COUNT 67 TH/MM3 (150-450); RED BLOOD COUNT 3.55 MIL/MM3 (4.00-5.30); RED CELL DISTRIBUTION WIDTH 13.5 % (11.6-17.2); WHITE BLOOD COUNT 4.6 TH/MM3 (4.0-11.0)
[2017-06-05] MEDS: CLOPIDOGREL 75 MG TAB PO SCH (18:25)
[2017-06-05 18:45] LABS: ALBUMIN 2.4 GM/DL (3.4-5.0); AST (GOT) 98 U/L (15-37); BICARBONATE 22.6 MEQ/L (21.0-32.0); BLOOD UREA NITROGEN 25 MG/DL (7-18); CALCIUM 7.6 MG/DL (8.5-10.1); CHLORIDE 104 MEQ/L (98-107); CREATININE 1.15 MG/DL (0.50-1.00); GLOMERULAR FILTRATION RATE 47 ML/MIN (>89); GLUCOSE,RANDOM 169 MG/DL (74-106); SODIUM (NA) 137 MEQ/L (136-145)
[2017-06-05 18:46] LABS: ALT (GPT) 135 U/L (10-53)
[2017-06-05 18:48] LABS: ALKALINE PHOSPHATASE 50 U/L (45-117); TOTAL BILIRUBIN ADULT 1.2 MG/DL (0.2-1.0); TOTAL PROTEIN 5.7 GM/DL (6.4-8.2)
[2017-06-05 20:00] VITALS: BP 134/63; PULSE 55; RESP 20; TEMP 98; O2SAT 96
[2017-06-05] MEDS: traZODone HCL 50 MG TAB PO SCH (21:00)
[2017-06-05] MEDS ORDERED: MORPHINE SULFATE 30 MG CONTROLLED RELEASE TAB PO SCH (21:00)
[2017-06-05] MEDS: ASPIRIN 81 MG CHEW TAB CHEW SCH (21:00)
[2017-06-06] VITALS: BP 109/60; PULSE 66; RESP 18; TEMP 97.8; O2SAT 98
[2017-06-06] MEDS: AMPICILLIN/SULBAC 3 GM/NS 100 ML IV SCH ×6 (02:00→16:55)
[2017-06-06] MEDS: LORazepam 2 MG/ML VIAL IV PUSH PRN (02:25)
[2017-06-06 04:00] VITALS: BP 142/66; PULSE 76; RESP 18; TEMP 98; O2SAT 98
[2017-06-06] MEDS: CHLORHEXIDINE GLUCONATE 2 % 1 PACK (2 CLOTHS)(taper/protocol) TOPICAL SCH (04:00)
[2017-06-06 08:00] VITALS: BP 140/60; PULSE 60; RESP 18; TEMP 98.6; O2SAT 95
[2017-06-06] MEDS: INSULIN ASPART SUPPLEMENTAL SCALE SQ SCH ×4 (08:00→21:00)
[2017-06-06] MEDS: OLOPATADINE HCL 0.1% OPHT SOLN 5 ML BTL EACH EYE SCH (09:00)
[2017-06-06] MEDS: ASPIRIN 81 MG CHEW TAB CHEW SCH ×2 (09:00→20:38)
[2017-06-06] MEDS: FUROSEMIDE 40 MG TAB PO SCH ×2 (09:00→20:41)
[2017-06-06] MEDS: FLUTICASONE PROPIONATE 50 MCG/ACT 16 GM NASAL SPRAY EACH NARE SCH ×2 (09:00→20:42)
[2017-06-06] MEDS: NIFEdipine 60 MG SUSTAINED RELEASE TAB PO SCH (09:00)
[2017-06-06] MEDS: MUPIROCIN 2% OINT 22 GM TUBE TOPICAL SCH ×2 (09:00→21:00)
[2017-06-06] MEDS: DEXAMETHASONE SOD PHOS 4 MG/ML VIAL IV SCH ×3 (09:01→23:46)
[2017-06-06] MEDS: METOPROLOL TARTRATE 25 MG TAB PO SCH ×3 (09:01→20:38)
[2017-06-06] MEDS: DOCUSATE SODIUM 50 MG/SENNA 8.6 MG TAB PO SCH ×2 (09:01→20:38)
[2017-06-06] MEDS: DOCUSATE SODIUM 100 MG CAP PO SCH ×2 (09:02→20:37)
[2017-06-06] MEDS: CLOPIDOGREL 75 MG TAB PO SCH (09:02)
[2017-06-06] MEDS: SODIUM CHLORIDE 0.9% FLUSH 10 ML FLUSH IV FLUSH SCH ×2 (09:03→20:37)
[2017-06-06] MEDS: ONDANSETRON HCL 4 MG/2 ML VIAL IVP PRN (09:05)
[2017-06-06] MEDS: ALPRAZolam 0.25 MG TAB PO PRN ×3 (09:07→23:46)
[2017-06-06 11:37] LABS: HEMOGLOBIN 12.4 GM/DL (11.6-15.3); MEAN CELL VOLUME 94.9 FL (80.0-100.0); MEAN CORPUSCULAR HEMOGLOBIN 32.8 PG (27.0-34.0); MEAN CORPUSCULAR HGB CONC 34.6 % (32.0-36.0); MEAN PLATELET VOLUME 10.5 FL (7.0-11.0); PLATELET COUNT 81 TH/MM3 (150-450); RED BLOOD COUNT 3.79 MIL/MM3 (4.00-5.30); RED CELL DISTRIBUTION WIDTH 12.8 % (11.6-17.2); WHITE BLOOD COUNT 7.4 TH/MM3 (4.0-11.0)
[2017-06-06 12:00] VITALS: BP 150/66; PULSE 66; RESP 18; TEMP 98.6; O2SAT 97
[2017-06-06] MEDS ORDERED: PROMETHAZINE HCL 25 MG TAB PO PRN (12:30)
[2017-06-06 12:37] LABS: BICARBONATE 19.8 MEQ/L (21.0-32.0); CALCIUM 7.7 MG/DL (8.5-10.1); CREATININE 1.16 MG/DL (0.50-1.00)
--- NOTE | 2017-06-06 12:51 | HHI.PR ---
Subjective Remarks As per RN patient c/o nausea Patient did not c/o nausea to me requesting her promethazine to be resumed Afebrile, denies chills. Objective Vitals Vital Signs Date Time Temp Pulse Resp B/P (MAP) Pulse Ox O2 Delivery O2 Flow Rate FiO2 06/06/17 12:00 98.6 66 18 150/66 (94) 97 06/06/17 08:00 98.6 60 18 140/60 (86) 95 06/06/17 04:00 Nasal Cannula 2.00 06/06/17 04:00 98.0 76 18 142/66 (91) 98 06/06/17 00:00 97.8 66 18 109/60 (76) 98 06/05/17 22:40 Nasal Cannula 2.00 06/05/17 20:00 98.0 55 20 134/63 (86) 96 06/05/17 16:00 97.6 53 18 124/60 (81) 98 I/O 06/05/17 06/05/17 06/05/17 06/06/17 06/06/17 06/06/17 07:00 15:00 23:00 07:00 15:00 23:00 Intake Total 680 ml 660 ml 675 ml Output Total 400 ml Balance 280 ml 660 ml 675 ml Intake Oral 680 ml 660 ml 60 ml IV Total 615 ml Output Urine Total 400 ml # Voids 3 6 2 # Bowel Movements 1 Result Diagram: 06/06/17 0940 06/06/17 0940 Imaging Last Impressions Neck CT 06/01/17 0435 Signed Impressions: Service Date/Time: Thursday, June 01, 2017 06:20 - CONCLUSION: 1. Findings suggestive left oral pharyngeal mass and concentric narrowing of the supraglottic airway at the level of the hyoid. 2. Incomplete evaluation of the oropharynx and hypopharynx due to motion/streak artifact. 3. Prominent gaseous distention of the upper thoracic esophagus. Patricio Lake MD Objective Remarks AAOx3 nad Clear lungs clear throat without erythema or exudates S1S2 RRR abdomen soft no edema in extremities Procedures Flexible laryngoscopy Medications and IVs Current Medications Medications (Trade) Dose Ordered Sig/Dennis Route Start Time Stop Time Status Last Admin (NS Flush) 2 ml UNSCH PRN IV FLUSH 06/01/17 09:45 (NS Flush) 2 ml BID IV FLUSH 06/01/17 21:00 06/06/17 09:03 (Zofran Inj) 4 mg Q6H PRN IVP 06/01/17 10:00 06/06/17 09:05 (Narcan Inj) 0.4 mg UNSCH PRN IV PUSH 06/01/17 09:45 (Tegan-Colace) 1 tab BID PO 06/01/17 21:00 06/06/17 09:01 (Milk Of Magnesia Liq) 30 ml Q12H PRN PO 06/01/17 10:00 (Senokot) 17.2 mg Q12H PRN PO 06/01/17 10:00 (Dulcolax Supp) 10 mg DAILY PRN RECTAL 06/01/17 10:00 (Lactulose Liq) 30 ml DAILY PRN PO 06/01/17 10:00 Ampicillin Sodium/ Sulbactam Sodium 3 gm/Sodium Chloride 100 ml @ 200 mls/hr Q8H IV 06/01/17 18:00 06/06/17 16:55 (Decadron Inj) 6 mg Q8H IV 06/01/17 16:00 06/06/17 16:54 (Protonix Inj) 40 mg Q24H IV PUSH 06/01/17 15:00 06/06/17 13:30 (Duoneb Neb) 1 ampule Q8HR NEB PRN NEB 06/01/17 15:00 (D50w (Vial) Inj) 50 ml UNSCH PRN IV PUSH 06/01/17 14:45 (Glucagon Inj) 1 mg UNSCH PRN OTHER 06/01/17 14:45 (NovoLOG SUPPLEMENTAL SCALE) 1 ACHS SLIDING SCALE SQ 06/01/17 17:00 06/05/17 21:00 (Lopressor Inj) 5 mg Q6H PRN IV PUSH 06/01/17 16:15 06/01/17 16:31 (Ativan Inj) 1 mg Q4H PRN IV PUSH 06/01/17 16:15 06/06/17 02:25 (Apresoline Inj) 10 mg Q6HR PRN IV PUSH 06/01/17 18:30 06/02/17 02:52 Miscellaneous Information Patient in critical care unit? Ass... Q361D .XX 06/02/17 03:00 (Chlorhexidine 2% Cloth) 3 pack UNSCH PRN TOPICAL 06/02/17 03:00 06/07/17 02:46 (Tylenol) 500 mg Q6H PRN PO 06/02/17 12:00 Pharmacy Profile Note 0 ml @ 0 mls/hr UNSCH OTHER 06/02/17 23:00 (Procardia Xl) 60 mg DAILY PO 06/03/17 09:00 06/06/17 09:00 (Lopressor) 12.5 mg Q12HR PO 06/03/17 09:00 06/06/17 09:01 Vancomycin HCl 1500 mg/Sodium Chloride 515 ml @ 257.5 mls/ hr Q18H IV 06/03/17 18:00 06/06/17 17:39 (Proair Hfa Inh) 2 puff Q6H PRN INH 06/04/17 15:15 06/05/17 10:26 (Xanax) 0.25 mg TID PRN PO 06/04/17 15:15 06/06/17 17:37 (Colace) 100 mg BID PO 06/04/17 21:00 06/06/17 09:02 (Flonase Alen Spr) 2 spray BID EACH NARE 06/04/17 21:00 06/06/17 09:00 (Lasix) 40 mg BID PO 06/04/17 21:00 06/06/17 09:00 (Patanol 0.1% Opth) 1 drop DAILY EACH EYE 06/05/17 09:00 06/06/17 09:00 (Desyrel) 150 mg HS PO 06/04/17 21:00 06/05/17 21:00 (Bactroban 2% Oint) 1 applic Q12HR TOPICAL 06/05/17 12:00 (Aspirin Chew) 81 mg BID CHEW 06/05/17 21:00 06/06/17 09:00 (Plavix) 75 mg DAILY PO 06/05/17 17:30 06/06/17 09:02 (Roxicodone) 10 mg Q6HR PO 06/05/17 18:00 06/06/17 17:38 (Oramorph Sr) 30 mg Q12HR PO 06/06/17 12:30 06/06/17 13:29 (Lopressor) 25 mg DAILY PO 06/06/17 12:45 (Phenergan) 12.5 mg Q6H PO 06/06/17 14:00 06/06/17 13:29 Urinary Catheter: No Vascular Central Line Catheter: No A/P Problem List: (1) Oropharyngeal mass ICD Code: R22.1 - Localized swelling, mass and lump, neck Status: Acute Plan: Ms. Dodd is a 66 year old female with a history of O2 dependent COPD who was admitted due to throat pain. Work up indicated possible pharyngeal mass. ENT evaluated patient and performed laryngoscopy and recommended steroid and IV abx for now. The consulted. Concerned about possible malignancy as well. Status post flexible laryngoscopy. Continue IV antibiotics as per ID recommendations. The patient currently on IV vancomycin IV Unasyn and dexamethasone. Continue supplemental O2 to keep oxygen saturation more than 92%. - Sp surgical biopsy on 06/04 ---> results pending (2) MRSA bacteremia ICD Code: R78.81 - Bacteremia Plan: Blood cultures positive for MRSA. Continue IV antibiotics as per ID. Repeat blood cultures negative 1 day Bactroban to nares x 7 days since MRSA nasal screen positive. discussed case with Dr spivey on 05/07, states patient will need to have negative repeat blood cultures prior to discharge. (3) Thrombocytopenia ICD Code: D69.6 - Thrombocytopenia, unspecified Plan: Platelets stable. Continue to monitor cbc. No evidence of active bleeding. Reactive to infections? (4) COPD (chronic obstructive pulmonary disease) ICD Code: J44.9 - Chronic obstructive pulmonary disease, unspecified Plan: Continue DuoNeb. Does not seem to be an exacerbation. (5) CAD (coronary artery disease) ICD Code: I25.10 - Atherosclerotic heart disease of [place] coronary artery without angina pectoris Plan: Hold aspirin and Plavix since patient had direct laryngoscopy with biopsy today. We will resume in a.m. if there is no evidence of bleeding. Continue beta-cristal 06/06 Continue aspirin and Plavix. (6) JERROD (acute kidney injury) ICD Code: N17.9 - Acute kidney failure, unspecified Status: Acute Plan: Creatinine trending up. Likely prerenal azotemia from decreased fluid intake. Start normal saline and monitor creatinine. Assessment and Plan DVT proph: Resume Lovenox SQ Discharge Planning Pending negative blood cultures and ID clearance. Problem Qualifiers (1) CAD (coronary artery disease): Qualified Codes: I25.10 - Atherosclerotic heart disease of [place] coronary artery without angina pectoris Ayo Ennis MD Jun 06, 2017 12:51
[2017-06-06] MEDS: MORPHINE SULFATE 30 MG CONTROLLED RELEASE TAB PO SCH ×2 (13:29→20:38)
[2017-06-06] MEDS: PROMETHAZINE HCL 25 MG TAB PO SCH ×2 (13:29→20:38)
[2017-06-06] MEDS: PANTOPRAZOLE SODIUM 40 MG VIAL IV PUSH SCH (13:30)
[2017-06-06 16:00] VITALS: BP 135/61; PULSE 60; RESP 18; TEMP 99.1; O2SAT 96
[2017-06-06] MEDS: VANCOMYCIN 1,500 MG/NS 500 ML IV SCH ×2 (17:39)
[2017-06-06 20:00] VITALS: BP 139/63; PULSE 61; RESP 20; TEMP 97.9; O2SAT 92
[2017-06-06] MEDS: traZODone HCL 50 MG TAB PO SCH (20:39)
[2017-06-07] VITALS: BP 116/74; PULSE 56; RESP 20; TEMP 97.4; O2SAT 97
[2017-06-07] MEDS: AMPICILLIN/SULBAC 3 GM/NS 100 ML IV SCH ×6 (02:37→18:33)
[2017-06-07] MEDS: PROMETHAZINE HCL 25 MG TAB PO SCH ×4 (02:37→21:49)
[2017-06-07 04:11] VITALS: BP 151/67; PULSE 56; RESP 16; TEMP 98.5; O2SAT 98
[2017-06-07 08:00] VITALS: BP 136/62; PULSE 64; RESP 20; TEMP 98.3; O2SAT 92
[2017-06-07] MEDS: INSULIN ASPART SUPPLEMENTAL SCALE SQ SCH ×4 (08:00→21:00)
[2017-06-07] MEDS: DOCUSATE SODIUM 50 MG/SENNA 8.6 MG TAB PO SCH ×2 (08:51→21:00)
[2017-06-07] MEDS: NIFEdipine 60 MG SUSTAINED RELEASE TAB PO SCH (08:51)
[2017-06-07] MEDS: MORPHINE SULFATE 30 MG CONTROLLED RELEASE TAB PO SCH ×2 (08:53→21:49)
[2017-06-07] MEDS: FUROSEMIDE 40 MG TAB PO SCH (08:54)
[2017-06-07] MEDS: SODIUM CHLORIDE 0.9% FLUSH 10 ML FLUSH IV FLUSH SCH ×2 (08:55→21:00)
[2017-06-07] MEDS: ASPIRIN 81 MG CHEW TAB CHEW SCH ×2 (08:55→21:49)
[2017-06-07] MEDS: DOCUSATE SODIUM 100 MG CAP PO SCH ×2 (08:55→21:00)
[2017-06-07] MEDS: CLOPIDOGREL 75 MG TAB PO SCH (08:55)
[2017-06-07] MEDS: DEXAMETHASONE SOD PHOS 4 MG/ML VIAL IV SCH ×2 (08:56→17:02)
[2017-06-07] MEDS: MUPIROCIN 2% OINT 22 GM TUBE TOPICAL SCH ×2 (08:58→21:00)
[2017-06-07] MEDS: OLOPATADINE HCL 0.1% OPHT SOLN 5 ML BTL EACH EYE SCH (08:58)
[2017-06-07] MEDS: METOPROLOL TARTRATE 25 MG TAB PO SCH ×3 (09:00→21:50)
[2017-06-07] MEDS: FLUTICASONE PROPIONATE 50 MCG/ACT 16 GM NASAL SPRAY EACH NARE SCH ×2 (09:00→21:00)
[2017-06-07 12:00] VITALS: BP 159/71; PULSE 65; RESP 20; TEMP 97.6; O2SAT 98
[2017-06-07] MEDS: VANCOMYCIN 1,500 MG/NS 500 ML IV SCH ×2 (12:21)
--- NOTE | 2017-06-07 13:08 | HHI.PR ---
Subjective Remarks The patient states she feels better. Denies fevers or chills. Denies chest pain or shortness of breath. Denies diarrhea. Afebrile. Objective Vitals Vital Signs Date Time Temp Pulse Resp B/P (MAP) Pulse Ox O2 Delivery O2 Flow Rate FiO2 06/07/17 12:00 97.6 65 20 159/71 (100) 98 06/07/17 08:00 98.3 64 20 136/62 (86) 92 06/07/17 04:11 98.5 56 16 151/67 (95) 98 06/07/17 04:00 Nasal Cannula 2.00 06/07/17 00:00 97.4 56 20 116/74 (88) 97 06/07/17 00:00 Nasal Cannula 2.00 06/06/17 21:20 Nasal Cannula 2.00 06/06/17 20:00 97.9 61 20 139/63 (88) 92 06/06/17 16:00 99.1 60 18 135/61 (85) 96 I/O 06/06/17 06/06/17 06/06/17 06/07/17 06/07/17 06/07/17 07:00 15:00 23:00 07:00 15:00 23:00 Intake Total 675 ml 980 ml 340 ml Output Total 200 ml 600 ml Balance 675 ml 980 ml 140 ml -600 ml Intake Oral 60 ml 480 ml 240 ml IV Total 615 ml 500 ml 100 ml Output Urine Total 200 ml 600 ml # Voids 2 6 # Bowel Movements 3 1 Result Diagram: 06/06/17 0940 06/06/17 0940 Imaging Last Impressions Neck CT 06/01/17 0435 Signed Impressions: Service Date/Time: Thursday, June 01, 2017 06:20 - CONCLUSION: 1. Findings suggestive left oral pharyngeal mass and concentric narrowing of the supraglottic airway at the level of the hyoid. 2. Incomplete evaluation of the oropharynx and hypopharynx due to motion/streak artifact. 3. Prominent gaseous distention of the upper thoracic esophagus. Patricio Lake MD Objective Remarks AAOx3 nad Clear lungs clear throat without erythema or exudates S1S2 RRR abdomen soft no edema in extremities Procedures Flexible laryngoscopy Medications and IVs Current Medications Medications (Trade) Dose Ordered Sig/Dennis Route Start Time Stop Time Status Last Admin (NS Flush) 2 ml UNSCH PRN IV FLUSH 06/01/17 09:45 (NS Flush) 2 ml BID IV FLUSH 06/01/17 21:00 06/07/17 08:55 (Zofran Inj) 4 mg Q6H PRN IVP 06/01/17 10:00 06/06/17 09:05 (Narcan Inj) 0.4 mg UNSCH PRN IV PUSH 06/01/17 09:45 (Tegan-Colace) 1 tab BID PO 06/01/17 21:00 06/07/17 08:51 (Milk Of Magnesia Liq) 30 ml Q12H PRN PO 06/01/17 10:00 (Senokot) 17.2 mg Q12H PRN PO 06/01/17 10:00 (Dulcolax Supp) 10 mg DAILY PRN RECTAL 06/01/17 10:00 (Lactulose Liq) 30 ml DAILY PRN PO 06/01/17 10:00 Ampicillin Sodium/ Sulbactam Sodium 3 gm/Sodium Chloride 100 ml @ 200 mls/hr Q8H IV 06/01/17 18:00 06/07/17 10:25 (Decadron Inj) 6 mg Q8H IV 06/01/17 16:00 06/07/17 08:56 (Protonix Inj) 40 mg Q24H IV PUSH 06/01/17 15:00 06/06/17 13:30 (Duoneb Neb) 1 ampule Q8HR NEB PRN NEB 06/01/17 15:00 (D50w (Vial) Inj) 50 ml UNSCH PRN IV PUSH 06/01/17 14:45 (Glucagon Inj) 1 mg UNSCH PRN OTHER 06/01/17 14:45 (NovoLOG SUPPLEMENTAL SCALE) 1 ACHS SLIDING SCALE SQ 06/01/17 17:00 06/06/17 21:00 (Lopressor Inj) 5 mg Q6H PRN IV PUSH 06/01/17 16:15 06/01/17 16:31 (Ativan Inj) 1 mg Q4H PRN IV PUSH 06/01/17 16:15 06/06/17 02:25 (Apresoline Inj) 10 mg Q6HR PRN IV PUSH 06/01/17 18:30 06/02/17 02:52 Miscellaneous Information Patient in critical care unit? Ass... Q361D .XX 06/02/17 03:00 (Tylenol) 500 mg Q6H PRN PO 06/02/17 12:00 Pharmacy Profile Note 0 ml @ 0 mls/hr UNSCH OTHER 06/02/17 23:00 (Procardia Xl) 60 mg DAILY PO 06/03/17 09:00 06/07/17 08:51 (Lopressor) 12.5 mg Q12HR PO 06/03/17 09:00 06/07/17 10:25 Vancomycin HCl 1500 mg/Sodium Chloride 515 ml @ 257.5 mls/ hr Q18H IV 06/03/17 18:00 06/07/17 12:21 (Proair Hfa Inh) 2 puff Q6H PRN INH 06/04/17 15:15 06/05/17 10:26 (Xanax) 0.25 mg TID PRN PO 06/04/17 15:15 06/06/17 23:46 (Colace) 100 mg BID PO 06/04/17 21:00 06/07/17 08:55 (Flonase Alen Spr) 2 spray BID EACH NARE 06/04/17 21:00 06/07/17 09:00 (Lasix) 40 mg BID PO 06/04/17 21:00 06/07/17 08:54 (Patanol 0.1% Opth) 1 drop DAILY EACH EYE 06/05/17 09:00 06/07/17 08:58 (Desyrel) 150 mg HS PO 06/04/17 21:00 06/06/17 20:39 (Bactroban 2% Oint) 1 applic Q12HR TOPICAL 06/05/17 12:00 06/07/17 08:58 (Aspirin Chew) 81 mg BID CHEW 06/05/17 21:00 06/07/17 08:55 (Plavix) 75 mg DAILY PO 06/05/17 17:30 06/07/17 08:55 (Roxicodone) 10 mg Q6HR PO 06/05/17 18:00 06/07/17 12:19 (Oramorph Sr) 30 mg Q12HR PO 06/06/17 12:30 06/07/17 08:53 (Lopressor) 25 mg DAILY PO 06/06/17 12:45 (Phenergan) 12.5 mg Q6H PO 06/06/17 14:00 06/07/17 08:52 Miscellaneous Information SPECIFIC LAB TO BE ... ONCE ONCE .XX 06/08/17 05:45 06/08/17 05:46 A/P Problem List: (1) Oropharyngeal mass ICD Code: R22.1 - Localized swelling, mass and lump, neck Status: Acute Plan: Ms. Dodd is a 66 year old female with a history of O2 dependent COPD who was admitted due to throat pain. Work up indicated possible pharyngeal mass. ENT evaluated patient and performed laryngoscopy and recommended steroid and IV abx for now. The consulted. Concerned about possible malignancy as well. Status post flexible laryngoscopy. Continue IV antibiotics as per ID recommendations. The patient currently on IV vancomycin IV Unasyn and dexamethasone. Continue supplemental O2 to keep oxygen saturation more than 92%. - Sp surgical biopsy on 06/04 ---> results pending (2) MRSA bacteremia ICD Code: R78.81 - Bacteremia Plan: Blood cultures positive for MRSA. Continue IV antibiotics as per ID. Repeat blood cultures negative 1 day Bactroban to nares x 7 days since MRSA nasal screen positive. discussed case with Dr spivey on 05/07, states patient will need to have negative repeat blood cultures prior to discharge. 06/07 Blood cultures negative x4 (3) Thrombocytopenia ICD Code: D69.6 - Thrombocytopenia, unspecified Plan: Platelets stable. Continue to monitor cbc. No evidence of active bleeding. Reactive to infections? (4) COPD (chronic obstructive pulmonary disease) ICD Code: J44.9 - Chronic obstructive pulmonary disease, unspecified Plan: Continue DuoNeb. Does not seem to be an exacerbation. (5) CAD (coronary artery disease) ICD Code: I25.10 - Atherosclerotic heart disease of [place] coronary artery without angina pectoris Plan: Hold aspirin and Plavix since patient had direct laryngoscopy with biopsy today. We will resume in a.m. if there is no evidence of bleeding. Continue beta-cristal Continue aspirin and Plavix. (6) JERROD (acute kidney injury) ICD Code: N17.9 - Acute kidney failure, unspecified Status: Acute Plan: Creatinine trending up. Likely prerenal azotemia from decreased fluid intake. Start normal saline and monitor creatinine. 06/07 BMP pending. Assessment and Plan DVT proph: Resume Lovenox SQ Discharge Planning Pending negative blood cultures and ID clearance. Problem Qualifiers (1) CAD (coronary artery disease): Qualified Codes: I25.10 - Atherosclerotic heart disease of [place] coronary artery without angina pectoris Ayo Ennis MD Jun 07, 2017 13:08
[2017-06-07] MEDS: SODIUM CHLOR 0.9% 1000 ML INJ 1,000 ML IV SCH ×2 (14:48→21:55)
[2017-06-07] MEDS: PANTOPRAZOLE SODIUM 40 MG VIAL IV PUSH SCH (14:48)
[2017-06-07 16:00] VITALS: BP 121/58; PULSE 62; RESP 20; TEMP 97.7; O2SAT 98
[2017-06-07 16:25] LABS: BICARBONATE 23.8 MEQ/L (21.0-32.0); CREATININE 1.25 MG/DL (0.50-1.00)
[2017-06-07 20:00] VITALS: BP 115/56; PULSE 63; RESP 18; TEMP 98.2; O2SAT 100
[2017-06-07] MEDS: traZODone HCL 50 MG TAB PO SCH (21:49)
[2017-06-08] VITALS: BP 139/65; PULSE 59; RESP 20; TEMP 97.5; O2SAT 100
[2017-06-08] MEDS: PROMETHAZINE HCL 25 MG TAB PO SCH ×4 (00:40→22:00)
[2017-06-08] MEDS: DEXAMETHASONE SOD PHOS 4 MG/ML VIAL IV SCH ×3 (00:40→15:39)
[2017-06-08] MEDS: AMPICILLIN/SULBAC 3 GM/NS 100 ML IV SCH ×4 (00:41→09:03)
[2017-06-08 04:00] VITALS: BP 127/72; PULSE 60; RESP 20; TEMP 98; O2SAT 95
[2017-06-08] MEDS: VANCOMYCIN 1,500 MG/NS 500 ML IV SCH ×2 (05:10)
[2017-06-08] MEDS ORDERED: PHARMACY ORDERED LAB ONE (05:45)
[2017-06-08] MEDS: SODIUM CHLORIDE 0.9% FLUSH 10 ML FLUSH IV FLUSH SCH ×2 (07:48→22:00)
[2017-06-08 08:00] VITALS: BP 158/69; PULSE 61; RESP 20; TEMP 98.2; O2SAT 98
[2017-06-08] MEDS: INSULIN ASPART SUPPLEMENTAL SCALE SQ SCH ×4 (08:00→21:00)
[2017-06-08 08:25] LABS: CREATININE 0.92 MG/DL (0.50-1.00)
[2017-06-08] MEDS: ASPIRIN 81 MG CHEW TAB CHEW SCH ×2 (08:51→22:00)
[2017-06-08] MEDS: MORPHINE SULFATE 30 MG CONTROLLED RELEASE TAB PO SCH ×2 (08:52→21:59)
[2017-06-08] MEDS: CLOPIDOGREL 75 MG TAB PO SCH (08:52)
[2017-06-08] MEDS: DOCUSATE SODIUM 100 MG CAP PO SCH ×2 (08:52→21:00)
[2017-06-08] MEDS: OLOPATADINE HCL 0.1% OPHT SOLN 5 ML BTL EACH EYE SCH (08:52)
[2017-06-08] MEDS: NIFEdipine 60 MG SUSTAINED RELEASE TAB PO SCH (08:52)
[2017-06-08] MEDS: DOCUSATE SODIUM 50 MG/SENNA 8.6 MG TAB PO SCH ×2 (08:52→21:00)
[2017-06-08] MEDS: FLUTICASONE PROPIONATE 50 MCG/ACT 16 GM NASAL SPRAY EACH NARE SCH ×2 (08:53→21:00)
[2017-06-08] MEDS: METOPROLOL TARTRATE 25 MG TAB PO SCH ×3 (08:54→21:59)
[2017-06-08] MEDS: MUPIROCIN 2% OINT 22 GM TUBE TOPICAL SCH ×2 (08:54→21:00)
[2017-06-08] MEDS: SODIUM CHLOR 0.9% 1000 ML INJ 1,000 ML IV SCH (08:55)
[2017-06-08] MEDS: ALPRAZolam 0.25 MG TAB PO PRN (09:03)
[2017-06-08 12:00] VITALS: BP 167/73; PULSE 60; RESP 20; TEMP 98.6; O2SAT 100
[2017-06-08] MEDS: PANTOPRAZOLE SODIUM 40 MG VIAL IV PUSH SCH (14:29)
--- NOTE | 2017-06-08 15:17 | HHI.PR ---
Subjective Remarks c/o sore throat and pain Deneis fevers or chills. Afebrile, Denies chills. Objective Vitals Vital Signs Date Time Temp Pulse Resp B/P (MAP) Pulse Ox O2 Delivery O2 Flow Rate FiO2 06/08/17 12:00 98.6 60 20 167/73 (104) 100 06/08/17 08:00 98.2 61 20 158/69 (98) 98 06/08/17 04:00 98.0 60 20 127/72 (90) 95 06/08/17 01:47 Nasal Cannula 2.00 06/08/17 00:00 97.5 59 20 139/65 (89) 100 06/07/17 20:45 Nasal Cannula 2.00 06/07/17 20:00 98.2 63 18 115/56 (75) 100 06/07/17 16:00 97.7 62 20 121/58 (79) 98 I/O 06/07/17 06/07/17 06/07/17 06/08/17 06/08/17 06/08/17 07:00 15:00 23:00 07:00 15:00 23:00 Intake Total 340 ml 615 ml 999 ml 240 ml 660 ml Output Total 200 ml 600 ml 1600 ml Balance 140 ml 15 ml 999 ml -1360 ml 660 ml Intake Oral 240 ml 240 ml 360 ml IV Total 100 ml 615 ml 999 ml 300 ml Output Urine Total 200 ml 600 ml 1600 ml # Voids 3 # Bowel Movements 1 0 1 Result Diagram: 06/06/17 0940 06/08/17 0710 Imaging Last Impressions Neck CT 06/01/17 0435 Signed Impressions: Service Date/Time: Thursday, June 01, 2017 06:20 - CONCLUSION: 1. Findings suggestive left oral pharyngeal mass and concentric narrowing of the supraglottic airway at the level of the hyoid. 2. Incomplete evaluation of the oropharynx and hypopharynx due to motion/streak artifact. 3. Prominent gaseous distention of the upper thoracic esophagus. Patricio Lake MD Objective Remarks AAOx3 nad Clear lungs clear throat without erythema or exudates S1S2 RRR abdomen soft no edema in extremities Procedures Flexible laryngoscopy Medications and IVs Current Medications Medications (Trade) Dose Ordered Sig/Dennis Route Start Time Stop Time Status Last Admin (NS Flush) 2 ml UNSCH PRN IV FLUSH 06/01/17 09:45 (NS Flush) 2 ml BID IV FLUSH 06/01/17 21:00 06/08/17 07:48 (Zofran Inj) 4 mg Q6H PRN IVP 06/01/17 10:00 06/06/17 09:05 (Narcan Inj) 0.4 mg UNSCH PRN IV PUSH 06/01/17 09:45 (Tegan-Colace) 1 tab BID PO 06/01/17 21:00 06/08/17 08:52 (Milk Of Magnesia Liq) 30 ml Q12H PRN PO 06/01/17 10:00 (Senokot) 17.2 mg Q12H PRN PO 06/01/17 10:00 (Dulcolax Supp) 10 mg DAILY PRN RECTAL 06/01/17 10:00 (Lactulose Liq) 30 ml DAILY PRN PO 06/01/17 10:00 Ampicillin Sodium/ Sulbactam Sodium 3 gm/Sodium Chloride 100 ml @ 200 mls/hr Q8H IV 06/01/17 18:00 06/08/17 09:03 (Decadron Inj) 6 mg Q8H IV 06/01/17 16:00 06/08/17 08:52 (Protonix Inj) 40 mg Q24H IV PUSH 06/01/17 15:00 06/08/17 14:29 (Duoneb Neb) 1 ampule Q8HR NEB PRN NEB 06/01/17 15:00 (D50w (Vial) Inj) 50 ml UNSCH PRN IV PUSH 06/01/17 14:45 (Glucagon Inj) 1 mg UNSCH PRN OTHER 06/01/17 14:45 (NovoLOG SUPPLEMENTAL SCALE) 1 ACHS SLIDING SCALE SQ 06/01/17 17:00 06/06/17 21:00 (Lopressor Inj) 5 mg Q6H PRN IV PUSH 06/01/17 16:15 06/01/17 16:31 (Ativan Inj) 1 mg Q4H PRN IV PUSH 06/01/17 16:15 06/06/17 02:25 (Apresoline Inj) 10 mg Q6HR PRN IV PUSH 06/01/17 18:30 06/02/17 02:52 Miscellaneous Information Patient in critical care unit? Ass... Q361D .XX 06/02/17 03:00 (Tylenol) 500 mg Q6H PRN PO 06/02/17 12:00 Pharmacy Profile Note 0 ml @ 0 mls/hr UNSCH OTHER 06/02/17 23:00 (Procardia Xl) 60 mg DAILY PO 06/03/17 09:00 06/08/17 08:52 (Lopressor) 12.5 mg Q12HR PO 06/03/17 09:00 06/07/17 21:50 (Proair Hfa Inh) 2 puff Q6H PRN INH 06/04/17 15:15 06/05/17 10:26 (Xanax) 0.25 mg TID PRN PO 06/04/17 15:15 06/08/17 09:03 (Colace) 100 mg BID PO 06/04/17 21:00 06/08/17 08:52 (Flonase Alen Spr) 2 spray BID EACH NARE 06/04/17 21:00 06/08/17 08:53 (Lasix) 40 mg BID PO 06/04/17 21:00 Future Hold 06/07/17 08:54 (Patanol 0.1% Opth) 1 drop DAILY EACH EYE 06/05/17 09:00 06/08/17 08:52 (Desyrel) 150 mg HS PO 06/04/17 21:00 06/07/17 21:49 (Bactroban 2% Oint) 1 applic Q12HR TOPICAL 06/05/17 12:00 06/08/17 08:54 (Aspirin Chew) 81 mg BID CHEW 06/05/17 21:00 06/08/17 08:51 (Plavix) 75 mg DAILY PO 06/05/17 17:30 06/08/17 08:52 (Roxicodone) 10 mg Q6HR PO 06/05/17 18:00 06/08/17 13:18 (Oramorph Sr) 30 mg Q12HR PO 06/06/17 12:30 06/08/17 08:52 (Lopressor) 25 mg DAILY PO 06/06/17 12:45 06/08/17 08:54 (Phenergan) 12.5 mg Q6H PO 06/06/17 14:00 06/08/17 13:18 Vancomycin HCl 1500 mg/Sodium Chloride 515 ml @ 257.5 mls/ hr Q24H IV 06/09/17 09:00 Miscellaneous Information SPECIFIC LAB TO BE DRAWN:VANCOMYCIN TROUGH DATE TO... ONCE ONCE .XX 06/12/17 08:45 06/12/17 08:46 A/P Problem List: (1) Oropharyngeal mass ICD Code: R22.1 - Localized swelling, mass and lump, neck Status: Acute Plan: Ms. Dodd is a 66 year old female with a history of O2 dependent COPD who was admitted due to throat pain. Work up indicated possible pharyngeal mass. ENT evaluated patient and performed laryngoscopy and recommended steroid and IV abx for now. The consulted. Concerned about possible malignancy as well. Status post flexible laryngoscopy. Continue IV antibiotics as per ID recommendations. The patient currently on IV vancomycin IV Unasyn and dexamethasone. Continue supplemental O2 to keep oxygen saturation more than 92%. 06/08 Sp surgical biopsy on 06/04 ---> pathology shows acute on chronic inflammation however there is no evidence of dysplasia or malignancy identified in any of the tissues obtained. (2) MRSA bacteremia ICD Code: R78.81 - Bacteremia Plan: Blood cultures positive for MRSA. Continue IV antibiotics as per ID. Repeat blood cultures negative 1 day Bactroban to nares x 7 days since MRSA nasal screen positive. discussed case with Dr spivey on 05/07, states patient will need to have negative repeat blood cultures prior to discharge. 06/08 Blood cultures negative x5. PAtient will be discharged with 10 days of IV Vancomycin. Awaiting ID orders. (3) Thrombocytopenia ICD Code: D69.6 - Thrombocytopenia, unspecified Plan: Platelets stable. Continue to monitor cbc. No evidence of active bleeding. (4) COPD (chronic obstructive pulmonary disease) ICD Code: J44.9 - Chronic obstructive pulmonary disease, unspecified Plan: Continue DuoNeb. Does not seem to be an exacerbation. (5) CAD (coronary artery disease) ICD Code: I25.10 - Atherosclerotic heart disease of [place] coronary artery without angina pectoris Plan: Hold aspirin and Plavix since patient had direct laryngoscopy with biopsy today. We will resume in a.m. if there is no evidence of bleeding. Continue beta-cristal Continue aspirin and Plavix. (6) JERROD (acute kidney injury) ICD Code: N17.9 - Acute kidney failure, unspecified Status: Acute Plan: Creatinine trending up. Likely prerenal azotemia from decreased fluid intake. Start normal saline and monitor creatinine. 06/07 BMP pending. 06/08 JERROD resolving. Creatinine trending down to 0.92. DC IV fluids (7) Oral thrush ICD Code: B37.0 - Candidal stomatitis Plan: Will start on nystatin orally, also start magic mouthwash. Assessment and Plan DVT proph: Resume Lovenox SQ Discharge Planning Awaiting for ID clearance and orders. Dc in am. Problem Qualifiers (1) CAD (coronary artery disease): Qualified Codes: I25.10 - Atherosclerotic heart disease of [place] coronary artery without angina pectoris Ayo Ennis MD Jun 08, 2017 15:17
[2017-06-08 16:00] VITALS: BP 149/65; PULSE 59; RESP 17; TEMP 98.6
[2017-06-08] MEDS: FLUCONAZOLE 100 MG TAB PO SCH (17:28)
[2017-06-08] MEDS ORDERED: NYSTATIN SUSP 500,000 U/5 ML CUP SWISH-SWAL SCH (18:00)
[2017-06-08] MEDS: NYSTAT/DIPHENHY/LIDO MOUTHWASH (Adult) 120ML SWISH-SWAL SCH ×2 (18:42→22:01)
[2017-06-08] MEDS: traZODone HCL 50 MG TAB PO SCH (21:59)
[2017-06-08 22:13] VITALS: BP 173/76; PULSE 60; RESP 16; O2SAT 100
[2017-06-09] VITALS: BP 125/57; PULSE 54; RESP 18; TEMP 98.2; O2SAT 98
[2017-06-09] MEDS: DEXAMETHASONE SOD PHOS 4 MG/ML VIAL IV SCH ×3 (00:49→17:48)
[2017-06-09] MEDS: PROMETHAZINE HCL 25 MG TAB PO SCH ×4 (00:49→22:14)
[2017-06-09 03:55] VITALS: BP 160/69; PULSE 51; RESP 18; TEMP 97.8; O2SAT 100
[2017-06-09] MEDS: INSULIN ASPART SUPPLEMENTAL SCALE SQ SCH ×4 (08:00→21:00)
[2017-06-09 08:03] VITALS: BP 146/56; PULSE 56; RESP 18; TEMP 97.7; O2SAT 100
[2017-06-09] MEDS: MORPHINE SULFATE 30 MG CONTROLLED RELEASE TAB PO SCH ×2 (08:56→22:14)
[2017-06-09] MEDS: DOCUSATE SODIUM 100 MG CAP PO SCH ×2 (08:57→21:00)
[2017-06-09] MEDS: CLOPIDOGREL 75 MG TAB PO SCH (08:57)
[2017-06-09] MEDS: DOCUSATE SODIUM 50 MG/SENNA 8.6 MG TAB PO SCH ×2 (08:58→21:00)
[2017-06-09] MEDS: ASPIRIN 81 MG CHEW TAB CHEW SCH ×2 (08:59→22:14)
[2017-06-09] MEDS: NIFEdipine 60 MG SUSTAINED RELEASE TAB PO SCH (09:00)
[2017-06-09] MEDS: FLUCONAZOLE 100 MG TAB PO SCH (09:00)
[2017-06-09] MEDS: METOPROLOL TARTRATE 25 MG TAB PO SCH ×2 (09:01)
[2017-06-09] MEDS: SODIUM CHLORIDE 0.9% FLUSH 10 ML FLUSH IV FLUSH SCH ×2 (09:01→22:14)
[2017-06-09] MEDS: VANCOMYCIN 1,500 MG/NS 500 ML IV SCH ×2 (09:02)
[2017-06-09] MEDS: FLUTICASONE PROPIONATE 50 MCG/ACT 16 GM NASAL SPRAY EACH NARE SCH ×2 (09:02→21:00)
[2017-06-09] MEDS: OLOPATADINE HCL 0.1% OPHT SOLN 5 ML BTL EACH EYE SCH (09:02)
[2017-06-09] MEDS: MUPIROCIN 2% OINT 22 GM TUBE TOPICAL SCH ×2 (09:03→21:00)
[2017-06-09] MEDS: NYSTAT/DIPHENHY/LIDO MOUTHWASH (Adult) 120ML SWISH-SWAL SCH ×4 (09:14→22:15)
[2017-06-09 12:00] VITALS: BP 171/77; PULSE 52; RESP 16; TEMP 97.3; O2SAT 100
[2017-06-09] MEDS: hydrALAZINE HCL 20 MG/ML VIAL IV PUSH PRN (12:27)
--- NOTE | 2017-06-09 12:57 | HHI.PR ---
Addendum to Inpatient Note Additional Information pt seen full note to follow Michell Sharp MD Jun 09, 2017 12:56
--- NOTE | 2017-06-09 13:37 | HHI.PR ---
Subjective Remarks The patient states that she still has some sore in her mouth Denies fevers or chills Afebrile Denies cp/sob states has generalized pain Objective Vitals Vital Signs Date Time Temp Pulse Resp B/P (MAP) Pulse Ox O2 Delivery O2 Flow Rate FiO2 06/09/17 12:00 97.3 52 16 171/77 (108) 100 06/09/17 10:52 16 06/09/17 08:03 97.7 56 18 146/56 (86) 100 06/09/17 03:55 97.8 51 18 160/69 (99) 100 06/09/17 00:17 Nasal Cannula 2.00 06/09/17 00:00 98.2 54 18 125/57 (79) 98 06/08/17 22:13 60 16 173/76 (108) 100 06/08/17 22:00 Nasal Cannula 2.00 06/08/17 16:00 98.6 59 17 149/65 (93) I/O 06/08/17 06/08/17 06/08/17 06/09/17 06/09/17 06/09/17 06:59 14:59 22:59 06:59 14:59 22:59 Intake Total 240 ml 660 ml 240 ml Output Total 1600 ml 2500 ml Balance -1360 ml 660 ml -2260 ml Intake Oral 240 ml 360 ml 240 ml IV Total 300 ml Output Urine Total 1600 ml 2500 ml # Voids 3 # Bowel Movements 0 1 2 Result Diagram: 06/06/17 0940 06/08/17 0710 Imaging Last Impressions Neck CT 06/01/17 0435 Signed Impressions: Service Date/Time: Thursday, June 01, 2017 06:20 - CONCLUSION: 1. Findings suggestive left oral pharyngeal mass and concentric narrowing of the supraglottic airway at the level of the hyoid. 2. Incomplete evaluation of the oropharynx and hypopharynx due to motion/streak artifact. 3. Prominent gaseous distention of the upper thoracic esophagus. Patricio Lake MD Objective Remarks AAOx3 nad Clear lungs clear throat without erythema or exudates S1S2 RRR abdomen soft no edema in extremities Procedures Flexible laryngoscopy Medications and IVs Current Medications Medications (Trade) Dose Ordered Sig/Dennis Route Start Time Stop Time Status Last Admin (NS Flush) 2 ml UNSCH PRN IV FLUSH 06/01/17 09:45 06/09/17 12:28 (NS Flush) 2 ml BID IV FLUSH 06/01/17 21:00 06/09/17 09:01 (Zofran Inj) 4 mg Q6H PRN IVP 06/01/17 10:00 06/06/17 09:05 (Narcan Inj) 0.4 mg UNSCH PRN IV PUSH 06/01/17 09:45 (Tegan-Colace) 1 tab BID PO 06/01/17 21:00 06/08/17 08:52 (Milk Of Magnesia Liq) 30 ml Q12H PRN PO 06/01/17 10:00 (Senokot) 17.2 mg Q12H PRN PO 06/01/17 10:00 (Dulcolax Supp) 10 mg DAILY PRN RECTAL 06/01/17 10:00 (Lactulose Liq) 30 ml DAILY PRN PO 06/01/17 10:00 (Decadron Inj) 6 mg Q8H IV 06/01/17 16:00 06/09/17 08:59 (Protonix Inj) 40 mg Q24H IV PUSH 06/01/17 15:00 06/08/17 14:29 (Duoneb Neb) 1 ampule Q8HR NEB PRN NEB 06/01/17 15:00 (D50w (Vial) Inj) 50 ml UNSCH PRN IV PUSH 06/01/17 14:45 (Glucagon Inj) 1 mg UNSCH PRN OTHER 06/01/17 14:45 (NovoLOG SUPPLEMENTAL SCALE) 1 ACHS SLIDING SCALE SQ 06/01/17 17:00 06/08/17 17:20 (Lopressor Inj) 5 mg Q6H PRN IV PUSH 06/01/17 16:15 06/01/17 16:31 (Ativan Inj) 1 mg Q4H PRN IV PUSH 06/01/17 16:15 06/06/17 02:25 (Apresoline Inj) 10 mg Q6HR PRN IV PUSH 06/01/17 18:30 06/09/17 12:27 Miscellaneous Information Patient in critical care unit? Ass... Q361D .XX 06/02/17 03:00 (Tylenol) 500 mg Q6H PRN PO 06/02/17 12:00 Pharmacy Profile Note 0 ml @ 0 mls/hr UNSCH OTHER 06/02/17 23:00 (Procardia Xl) 60 mg DAILY PO 06/03/17 09:00 06/09/17 09:00 (Lopressor) 12.5 mg Q12HR PO 06/03/17 09:00 06/09/17 09:01 (Proair Hfa Inh) 2 puff Q6H PRN INH 06/04/17 15:15 06/05/17 10:26 (Xanax) 0.25 mg TID PRN PO 06/04/17 15:15 06/08/17 09:03 (Colace) 100 mg BID PO 06/04/17 21:00 06/08/17 08:52 (Flonase Alen Spr) 2 spray BID EACH NARE 06/04/17 21:00 06/09/17 09:02 (Lasix) 40 mg BID PO 06/04/17 21:00 Future Hold 06/07/17 08:54 (Patanol 0.1% Opth) 1 drop DAILY EACH EYE 06/05/17 09:00 06/09/17 09:02 (Desyrel) 150 mg HS PO 06/04/17 21:00 06/08/17 21:59 (Bactroban 2% Oint) 1 applic Q12HR TOPICAL 06/05/17 12:00 06/09/17 09:03 (Aspirin Chew) 81 mg BID CHEW 06/05/17 21:00 06/09/17 08:59 (Plavix) 75 mg DAILY PO 06/05/17 17:30 06/09/17 08:57 (Roxicodone) 10 mg Q6HR PO 06/05/17 18:00 06/09/17 12:27 (Oramorph Sr) 30 mg Q12HR PO 06/06/17 12:30 06/09/17 08:56 (Lopressor) 25 mg DAILY PO 06/06/17 12:45 06/09/17 09:01 (Phenergan) 12.5 mg Q6H PO 06/06/17 14:00 06/09/17 09:00 Vancomycin HCl 1500 mg/Sodium Chloride 515 ml @ 257.5 mls/ hr Q24H IV 06/09/17 09:00 06/09/17 09:02 Miscellaneous Information SPECIFIC LAB TO BE DRAWN:VANCOMYCIN TROUGH DATE TO... ONCE ONCE .XX 06/12/17 08:45 06/12/17 08:46 (Magic Mouthwash Adult Liq) 5 ml QID SWISH-SWAL 06/08/17 18:00 06/09/17 12:28 (Diflucan) 100 mg DAILY PO 06/08/17 16:30 06/09/17 09:00 A/P Problem List: (1) Oropharyngeal mass ICD Code: R22.1 - Localized swelling, mass and lump, neck Status: Acute Plan: Ms. Dodd is a 66 year old female with a history of O2 dependent COPD who was admitted due to throat pain. Work up indicated possible pharyngeal mass. ENT evaluated patient and performed laryngoscopy and recommended steroid and IV abx for now. The consulted. Concerned about possible malignancy as well. Status post flexible laryngoscopy. Continue IV antibiotics as per ID recommendations. The patient currently on IV vancomycin IV Unasyn and dexamethasone. Continue supplemental O2 to keep oxygen saturation more than 92%. 06/08 Sp surgical biopsy on 06/04 ---> pathology shows acute on chronic inflammation however there is no evidence of dysplasia or malignancy identified in any of the tissues obtained. (2) MRSA bacteremia ICD Code: R78.81 - Bacteremia Plan: Blood cultures positive for MRSA. Continue IV antibiotics as per ID. Repeat blood cultures negative 1 day Bactroban to nares x 7 days since MRSA nasal screen positive. discussed case with Dr spivey on 05/07, states patient will need to have negative repeat blood cultures prior to discharge. 06/08 Blood cultures negative x5. PAtient will be discharged with 10 days of IV Vancomycin. Awaiting ID orders. 06/09 discussed the case with Dr. Sharp from infectious disease who is covering for Dr. Alan danielson the initially assigned infectious disease doctor to this patient. She states that she would like a 2D echocardiogram prior to be able to discharge the patient since the patient grew MRSA in the blood. Will order 2D echo. (3) Thrombocytopenia ICD Code: D69.6 - Thrombocytopenia, unspecified Plan: Platelets stable. Continue to monitor cbc. No evidence of active bleeding. (4) COPD (chronic obstructive pulmonary disease) ICD Code: J44.9 - Chronic obstructive pulmonary disease, unspecified Plan: Continue DuoNeb. Does not seem to be an exacerbation. (5) CAD (coronary artery disease) ICD Code: I25.10 - Atherosclerotic heart disease of [place] coronary artery without angina pectoris Plan: Hold aspirin and Plavix since patient had direct laryngoscopy with biopsy today. We will resume in a.m. if there is no evidence of bleeding. Continue beta-cristal Continue aspirin and Plavix. (6) JERROD (acute kidney injury) ICD Code: N17.9 - Acute kidney failure, unspecified Status: Acute Plan: Creatinine trending up. Likely prerenal azotemia from decreased fluid intake. Start normal saline and monitor creatinine. 06/07 BMP pending. 06/08 JERROD resolving. Creatinine trending down to 0.92. DC IV fluids (7) Oral thrush ICD Code: B37.0 - Candidal stomatitis Plan: On Magic mouthwash, p.o. fluconazole. Improving. Assessment and Plan DVT proph: Resume Lovenox SQ Discharge Planning Patient with pharyngitis, grew MRSA in the blood, repeat blood cultures negative. 2D echocardiogram pending. If negative the patient may be discharged home with IV vancomycin 10 days. Problem Qualifiers (1) CAD (coronary artery disease): Qualified Codes: I25.10 - Atherosclerotic heart disease of [place] coronary artery without angina pectoris Ayo Ennis MD Jun 09, 2017 13:37
[2017-06-09] MEDS ORDERED: SODIUM CHLORIDE 0.9% FLUSH 10 ML FLUSH IV FLUSH PRN (14:15)
[2017-06-09] MEDS: PANTOPRAZOLE SODIUM 40 MG VIAL IV PUSH SCH (14:27)
[2017-06-09 16:03] VITALS: BP 132/61; PULSE 61; RESP 18; TEMP 97.4; O2SAT 95
--- NOTE | 2017-06-09 18:21 | HHI.IDPN ---
Subjective Subjective Remarks ID X cover for Dr Preciado chart reviewed 66-year-old white female who presented on 06/01/2017 with sore throat and pain on swallowing and difficulty controlling her secretions. Febrile up to 101 degrees Blood cultures were taken and the blood culture had MRSA in each of 2 sets and a third set has Staph coagulase negative. The third set also has a bacillus species. A fourth set has no growth. Antibiotics vancomycin Past Medical History 1. COPD. The patient uses home O2. 2. Coronary artery disease. 3. Chronic pain. 4. Fibromyalgia. 5. Lupus PAST SURGICAL HISTORY: Coronary artery bypass surgery, neck surgery, cholecystectomy, appendectomy, partial colectomy. Allergies: Coded Allergies: amlodipine (Unverified Allergy, Severe, INTESTINAL REACTION PER PT, ) celecoxib (Unverified Allergy, Severe, GI BLEED, 06/01/17) codeine (Unverified Allergy, Severe, VOMITING, 06/01/17) enalaprilat (Unverified Allergy, Severe, DOES NOT REMEMBER, 06/01/17) gabapentin (Unverified Allergy, Severe, VOMITING, 06/01/17) naproxen (Unverified Allergy, Severe, GI BLEED, 06/01/17) ramipril (Unverified Allergy, Severe, VOMITING, 06/01/17) rofecoxib (Unverified Allergy, Severe, GI BLEED, 06/01/17) sumatriptan (Unverified Allergy, Severe, HEART PALPITATIONS, 06/01/17) pregabalin (Unverified Allergy, Unknown, Psychosis, 06/01/17) Objective . Vital Signs Date Time Temp Pulse Resp B/P (MAP) Pulse Ox O2 Delivery O2 Flow Rate FiO2 06/09/17 16:03 97.4 61 18 132/61 (84) 95 06/09/17 12:00 97.3 52 16 171/77 (108) 100 06/09/17 10:52 16 06/09/17 08:03 97.7 56 18 146/56 (86) 100 06/09/17 07:00 Nasal Cannula 2.00 06/09/17 03:55 97.8 51 18 160/69 (99) 100 06/09/17 00:17 Nasal Cannula 2.00 06/09/17 00:00 98.2 54 18 125/57 (79) 98 06/08/17 22:13 60 16 173/76 (108) 100 06/08/17 22:00 Nasal Cannula 2.00 . Laboratory Tests Test 06/08/17 07:10 Creatinine 0.92 MG/DL Estimat Glomerular Filtration Rate 61 ML/MIN Imaging Last Impressions Neck CT 06/01/17 0435 Signed Impressions: Service Date/Time: Thursday, June 01, 2017 06:20 - CONCLUSION: 1. Findings suggestive left oral pharyngeal mass and concentric narrowing of the supraglottic airway at the level of the hyoid. 2. Incomplete evaluation of the oropharynx and hypopharynx due to motion/streak artifact. 3. Prominent gaseous distention of the upper thoracic esophagus. Patricio Lake MD Physical Exam PHYSICAL EXAMINATION: GENERAL: No acute distress. She is awake and alert and oriented. HEENT: Head is atraumatic. Extraocular movements are grossly intact. No icterus. No conjunctival erythema. Nasal septum without visible lesions. Oropharynx: Moist mucosa. NECK: Supple. No adenopathy or swelling. LUNGS: Breath sounds are clear. HEART: Regular S1, S2, without murmurs, rubs or gallops. ABDOMEN: Bowel sounds present. Tight nontender. Very disneded and firm abdomen EXTREMITIES: No clubbing, cyanosis or edema. SKIN: No rash. No nail hemorrhages. NEUROLOGIC: Nonfocal. PSYCHIATRIC: Calm and cooperative. Assessment & Plan Remarks IMPRESSION: 1. Bacteremia due to methicillin-resistant staphylococcus aureus. - inapparent source. Two sets of the blood cultures are with methicillin-resistant staphylococcus aureus. - repeat BC mnegative 2. Positive nasal test for methicillin-resistant staphylococcus aureus. 3. Newly diagnosed mass Liver cirrhosis previously present on imaging studies , now with distended and tight abdomen ? ascites Low level coag neg staph and Bacillus bactremia - cw contaminant RECOMMENDATIONS: 1. Continue the vancomycin. 2. 2 D echo US abdomen dw Michell Plata MD Jun 09, 2017 18:21
--- NOTE | 2017-06-09 20:54 | RADRPT ---
EXAM DATE/TIME: 06/09/2017 19:54 [facility] COMPARISON: No previous studies available for comparison. INDICATIONS : Ascities. MEDICAL HISTORY : Myocardial infarction. Hypertension. Chronic obstructive pulmonary disease. Neck pain. Syncope. Antic oagulant therapy. Dyspnea. GERD. Arthritis. Diabetes. Depression. Anxiety. MRSA. SURGICAL HISTORY : Tonsillectomy. CABG. Appendectomy. Discectomy. Cholecystectomy. Hysterectomy. ENCOUNTER: Initial ACUITY: 1 day PAIN SCORE: 3/10 LOCATION: Abdomen. AREA EVALUATED: Abdomen. FINDINGS: Imaging of the abdomen and pelvis was performed to evaluate for ascites for possible paracentesis. T here is mild ascites seen in the right upper quadrant, left lower quadrant, and minimally around the spleen. It is thought the amount of ascites is too small to drain. The liver appears abnormal. CONCLUSION: Mild ascites too small to drain. Mahad Avila MD on June 09, 2017 at 20:50 Board Certified Radiologist. This report was verified electronically.
[2017-06-09 21:01] VITALS: BP 172/74; PULSE 67; RESP 16; TEMP 97.6; O2SAT 96
[2017-06-09] MEDS: traZODone HCL 50 MG TAB PO SCH (22:13)
[2017-06-10] MEDS: DEXAMETHASONE SOD PHOS 4 MG/ML VIAL IV SCH ×3 (00:30→17:03)
[2017-06-10 01:01] VITALS: BP 127/55; PULSE 61; RESP 18; TEMP 97.8; O2SAT 100
--- NOTE | 2017-06-10 01:38 | HHI.PR ---
Subjective Remarks not seen Objective Vitals Vital Signs Date Time Temp Pulse Resp B/P (MAP) Pulse Ox O2 Delivery O2 Flow Rate FiO2 06/10/17 01:01 97.8 61 18 127/55 (79) 100 06/09/17 21:01 97.6 67 16 172/74 (106) 96 06/09/17 20:00 Nasal Cannula 2.00 06/09/17 16:03 97.4 61 18 132/61 (84) 95 06/09/17 12:00 97.3 52 16 171/77 (108) 100 06/09/17 10:52 16 06/09/17 08:03 97.7 56 18 146/56 (86) 100 06/09/17 07:00 Nasal Cannula 2.00 06/09/17 03:55 97.8 51 18 160/69 (99) 100 I/O 06/09/17 06/09/17 06/09/17 06/10/17 06/10/17 06/10/17 07:00 15:00 23:00 07:00 15:00 23:00 Intake Total 240 ml 600 ml Output Total 2500 ml Balance -2260 ml 600 ml Intake Oral 240 ml 600 ml Output Urine Total 2500 ml # Voids 4 # Bowel Movements 2 1 Result Diagram: 06/06/17 0940 06/08/17 0710 Imaging Last Impressions Abdomen Ultrasound 06/09/17 0000 Signed Impressions: Service Date/Time: Friday, June 09, 2017 19:54 - CONCLUSION: Mild ascites too small to drain. Mahad Avila MD Neck CT 06/01/17 0435 Signed Impressions: Service Date/Time: Thursday, June 01, 2017 06:20 - CONCLUSION: 1. Findings suggestive left oral pharyngeal mass and concentric narrowing of the supraglottic airway at the level of the hyoid. 2. Incomplete evaluation of the oropharynx and hypopharynx due to motion/streak artifact. 3. Prominent gaseous distention of the upper thoracic esophagus. Patricio Lake MD Objective Remarks AAOx3 nad Clear lungs clear throat without erythema or exudates S1S2 RRR abdomen soft no edema in extremities Procedures Flexible laryngoscopy A/P Problem List: (1) Oropharyngeal mass ICD Code: R22.1 - Localized swelling, mass and lump, neck Status: Acute (2) MRSA bacteremia ICD Code: R78.81 - Bacteremia (3) Thrombocytopenia ICD Code: D69.6 - Thrombocytopenia, unspecified (4) COPD (chronic obstructive pulmonary disease) ICD Code: J44.9 - Chronic obstructive pulmonary disease, unspecified (5) CAD (coronary artery disease) ICD Code: I25.10 - Atherosclerotic heart disease of [place] coronary artery without angina pectoris (6) JERROD (acute kidney injury) ICD Code: N17.9 - Acute kidney failure, unspecified Status: Acute (7) Oral thrush ICD Code: B37.0 - Candidal stomatitis Assessment and Plan (1) Oropharyngeal mass Ms. Dodd is a 66 year old female with a history of O2 dependent COPD who was admitted due to throat pain. Work up indicated possible pharyngeal mass. ENT evaluated patient and performed laryngoscopy and recommended steroid and IV abx for now. The patient currently on IV vancomycin IV Unasyn and dexamethasone. Continue supplemental O2 to keep oxygen saturation more than 92%. 06/08 Sp surgical biopsy on 06/04 ---> pathology shows acute on chronic inflammation however there is no evidence of dysplasia or malignancy identified in any of the tissues obtained. (2) MRSA bacteremia Continue IV antibiotics as per ID. Repeat blood cultures negative 1 day Bactroban to nares x 7 days since MRSA nasal screen positive. discussed case with Dr spivey on 06/04, states patient will need to have negative repeat blood cultures prior to discharge. 06/08 Blood cultures negative x5. PAtient will be discharged with 10 days of IV Vancomycin. Awaiting ID orders. 06/09 discussed the case with Dr. Sharp from infectious disease who is covering for Dr. Spivey the initially assigned infectious disease doctor to this patient. She states that she would like a 2D echocardiogram prior to be able to discharge the patient since the patient grew MRSA in the blood. Will order 2D echo. (3) Thrombocytopenia Platelets stable. Continue to monitor cbc. No evidence of active bleeding. (4) COPD (chronic obstructive pulmonary disease) Continue DuoNeb. Does not seem to be an exacerbation. (5) CAD (coronary artery disease) Continue beta-cristal Continue aspirin and Plavix. (6) JERROD (acute kidney injury) Creatinine trending up. Likely prerenal azotemia from decreased fluid intake. Start normal saline and monitor creatinine. 06/08 JERROD resolving. Creatinine trending down to 0.92. DC IV fluids (7) Oral thrush On Magic mouthwash, p.o. fluconazole. Improving. DVT proph: Resume Lovenox SQ Discharge Planning Patient with pharyngitis, grew MRSA in the blood, repeat blood cultures negative. 2D echocardiogram pending. If negative the patient may be discharged home with IV vancomycin 10 days. Problem Qualifiers (1) CAD (coronary artery disease): Qualified Codes: I25.10 - Atherosclerotic heart disease of [place] coronary artery without angina pectoris Danie Wolf MD Jun 10, 2017 01:38
[2017-06-10] MEDS ORDERED: BEDSIDE COMMODE1 MI1 (01:54)
[2017-06-10] MEDS: PROMETHAZINE HCL 25 MG TAB PO SCH ×4 (02:00→21:38)
[2017-06-10 05:31] VITALS: BP 167/73; PULSE 61; RESP 18; TEMP 98.1; O2SAT 97
[2017-06-10 06:46] LABS: CREATININE 0.89 MG/DL (0.50-1.00)
[2017-06-10] MEDS: INSULIN ASPART SUPPLEMENTAL SCALE SQ SCH ×4 (08:00→21:00)
[2017-06-10] MEDS: ENOXAPARIN SODIUM 40 MG/0.4 ML SYRINGE SQ SCH (08:15)
[2017-06-10 08:44] VITALS: BP 176/79; PULSE 71; RESP 22; TEMP 97.8; O2SAT 95
[2017-06-10] MEDS: SODIUM CHLORIDE 0.9% FLUSH 10 ML FLUSH IV FLUSH SCH ×3 (09:00→21:38)
[2017-06-10] MEDS: MORPHINE SULFATE 30 MG CONTROLLED RELEASE TAB PO SCH ×2 (09:00→21:38)
[2017-06-10] MEDS: NYSTAT/DIPHENHY/LIDO MOUTHWASH (Adult) 120ML SWISH-SWAL SCH ×4 (09:00→21:39)
[2017-06-10] MEDS: MUPIROCIN 2% OINT 22 GM TUBE TOPICAL SCH ×2 (09:00→21:00)
[2017-06-10] MEDS: OLOPATADINE HCL 0.1% OPHT SOLN 5 ML BTL EACH EYE SCH (09:00)
[2017-06-10] MEDS: FLUTICASONE PROPIONATE 50 MCG/ACT 16 GM NASAL SPRAY EACH NARE SCH ×2 (09:00→21:00)
[2017-06-10] MEDS: METOPROLOL TARTRATE 25 MG TAB PO SCH (10:27)
[2017-06-10] MEDS: CLOPIDOGREL 75 MG TAB PO SCH (10:29)
[2017-06-10] MEDS: NIFEdipine 60 MG SUSTAINED RELEASE TAB PO SCH (10:29)
[2017-06-10] MEDS: ASPIRIN 81 MG CHEW TAB CHEW SCH ×2 (10:29→21:38)
[2017-06-10] MEDS: DOCUSATE SODIUM 50 MG/SENNA 8.6 MG TAB PO SCH ×2 (10:29→21:37)
[2017-06-10] MEDS: FLUCONAZOLE 100 MG TAB PO SCH (10:29)
[2017-06-10] MEDS: VANCOMYCIN 1,500 MG/NS 500 ML IV SCH ×2 (10:30)
--- NOTE | 2017-06-10 10:41 | HHI.PR ---
Subjective Remarks Follow-up pharyngitis. Improving throat pain tolerating diet no dysphagia. History of GERD. Patient awaiting GI consultation set up by PCP. Seen with daughter/POA. Discussed with nursing and infectious disease, patient stable for discharge pending echocardiogram Objective Vitals Vital Signs Date Time Temp Pulse Resp B/P (MAP) Pulse Ox O2 Delivery O2 Flow Rate FiO2 06/10/17 08:44 97.8 71 22 176/79 (111) 95 06/10/17 05:31 98.1 61 18 167/73 (104) 97 06/10/17 01:01 97.8 61 18 127/55 (79) 100 06/09/17 21:01 97.6 67 16 172/74 (106) 96 06/09/17 20:00 Nasal Cannula 2.00 06/09/17 16:03 97.4 61 18 132/61 (84) 95 06/09/17 12:00 97.3 52 16 171/77 (108) 100 06/09/17 10:52 16 I/O 06/09/17 06/09/17 06/09/17 06/10/17 06/10/17 06/10/17 07:00 15:00 23:00 07:00 15:00 23:00 Intake Total 240 ml 600 ml Output Total 2500 ml 450 ml Balance -2260 ml 600 ml -450 ml Intake Oral 240 ml 600 ml Output Urine Total 2500 ml 450 ml # Voids 4 # Bowel Movements 2 1 Result Diagram: 06/06/17 0940 06/10/17 0530 Imaging Last Impressions Abdomen Ultrasound 06/09/17 0000 Signed Impressions: Service Date/Time: Friday, June 09, 2017 19:54 - CONCLUSION: Mild ascites too small to drain. Mahad Avila MD Neck CT 06/01/17 0435 Signed Impressions: Service Date/Time: Thursday, June 01, 2017 06:20 - CONCLUSION: 1. Findings suggestive left oral pharyngeal mass and concentric narrowing of the supraglottic airway at the level of the hyoid. 2. Incomplete evaluation of the oropharynx and hypopharynx due to motion/streak artifact. 3. Prominent gaseous distention of the upper thoracic esophagus. Patricio Lake MD Objective Remarks GENERAL: Well-developed, obese in no distress SKIN: Warm and dry. Throat: Clear with no bleeding or mass CARDIOVASCULAR: Regular rate and rhythm. RESPIRATORY: No accessory muscle use. Clear to auscultation. Breath sounds equal bilaterally. GASTROINTESTINAL: Abdomen soft, non-tender, nondistended. Daily MUSCULOSKELETAL: Extremities without clubbing, cyanosis but with bilateral lower extremity pitting edema. No obvious deformities. NEUROLOGICAL: Awake and alert. No obvious cranial nerve deficits. Motor grossly within normal limits. Five out of 5 muscle strength in the arms and legs. Normal speech. PSYCHIATRIC: Appropriate mood and affect; insight and judgment normal. Procedures Flexible laryngoscopy A/P Problem List: (1) Oropharyngeal mass ICD Code: R22.1 - Localized swelling, mass and lump, neck Status: Acute (2) MRSA bacteremia ICD Code: R78.81 - Bacteremia (3) Thrombocytopenia ICD Code: D69.6 - Thrombocytopenia, unspecified (4) COPD (chronic obstructive pulmonary disease) ICD Code: J44.9 - Chronic obstructive pulmonary disease, unspecified (5) CAD (coronary artery disease) ICD Code: I25.10 - Atherosclerotic heart disease of [place] coronary artery without angina pectoris (6) JERROD (acute kidney injury) ICD Code: N17.9 - Acute kidney failure, unspecified Status: Acute (7) Oral thrush ICD Code: B37.0 - Candidal stomatitis Assessment and Plan (1) severe pharyngitis Ms. Dodd is a 66 year old female with a history of O2 dependent COPD who was admitted due to throat pain. Work up indicated possible pharyngeal mass. ENT evaluated patient and performed laryngoscopy and recommended steroid and IV abx for now. Clinically improved switch to p.o. steroids and continue IV vancomycin 06/08 Sp surgical biopsy on 06/04 ---> pathology shows acute on chronic inflammation however there is no evidence of dysplasia or malignancy identified in any of the tissues obtained. (2) MRSA bacteremia Continue IV vancomycin Repeat blood cultures negative to date Bactroban to nares x 7 days since MRSA nasal screen positive. Discussed the case with Dr. Sharp from infectious disease, awaiting to the echo to determine duration of intravenous antimicrobial therapy. Bacteremia likely secondary to #1 (3) Thrombocytopenia Platelets stable. Continue to monitor cbc. No evidence of active bleeding. (4) COPD (chronic obstructive pulmonary disease) Continue DuoNeb. Does not seem to be an exacerbation. (5) CAD (coronary artery disease) Continue beta-cristal Continue aspirin and Plavix. (6) JERROD (acute kidney injury) JERROD resolving. Creatinine trending down to 0.92. DC IV fluids (7) Oral thrush On Magic mouthwash, p.o. fluconazole. Improving. 8. Chronic liver disease as shown on previous imaging studies with possible cirrhosis. Negative hepatitis panel. Patient has been referred to GI by her PCP DVT proph: Resume Lovenox SQ Discharge Planning Discharge when echo resulted Problem Qualifiers (1) CAD (coronary artery disease): Qualified Codes: I25.10 - Atherosclerotic heart disease of [place] coronary artery without angina pectoris Danie Wolf MD Jun 10, 2017 10:41
[2017-06-10 11:34] VITALS: BP 144/73; PULSE 54; RESP 20; TEMP 98.4; O2SAT 96
[2017-06-10] MEDS: PANTOPRAZOLE SODIUM 40 MG VIAL IV PUSH SCH (12:13)
--- NOTE | 2017-06-10 12:52 | HHI.DCPOC ---
Discharge Care Plan Diagnosis: (1) MRSA bacteremia Your Health Problems Are: Difficulty with ADL Exercise Tolerance Goals to Promote Your Health * To prevent worsening of your condition and complications * To maintain your health at the optimal level Directions to Meet Your Goals Take your medications as prescribed Follow your dietary instruction Follow activity as directed Keep your appointments as scheduled Take your immunizations and boosters as scheduled If your symptoms worsen call your PCP, if no PCP go to Urgent Care Center or Emergency Room Smoking is Dangerous to Your Health. Avoid second hand smoke Call the 24-hour hour crisis hotline for domestic abuse at Danie Wolf MD Jun 10, 2017 12:52
[2017-06-10] MEDS ORDERED: DIFL100T PO (13:01)
[2017-06-10] MEDS ORDERED: MAGICADU2 SWISH-SWAL (13:01)
[2017-06-10] MEDS ORDERED: Mupirocin 2% Oint TOPICAL (13:01)
[2017-06-10] MEDS ORDERED: NIFE60TA8 PO (13:01)
--- NOTE | 2017-06-10 13:27 | HHI.IDPN ---
Subjective Subjective Remarks ID X cover for Dr Colemanaid US with small amount of ascites 2 D echo done not read yet mass bx with acute/chronic inflamation Antibiotics vancomycin Past Medical History 1. COPD. The patient uses home O2. 2. Coronary artery disease. 3. Chronic pain. 4. Fibromyalgia. 5. Lupus PAST SURGICAL HISTORY: Coronary artery bypass surgery, neck surgery, cholecystectomy, appendectomy, partial colectomy. Allergies: Coded Allergies: amlodipine (Unverified Allergy, Severe, INTESTINAL REACTION PER PT, ) celecoxib (Unverified Allergy, Severe, GI BLEED, 06/01/17) codeine (Unverified Allergy, Severe, VOMITING, 06/01/17) enalaprilat (Unverified Allergy, Severe, DOES NOT REMEMBER, 06/01/17) gabapentin (Unverified Allergy, Severe, VOMITING, 06/01/17) naproxen (Unverified Allergy, Severe, GI BLEED, 06/01/17) ramipril (Unverified Allergy, Severe, VOMITING, 06/01/17) rofecoxib (Unverified Allergy, Severe, GI BLEED, 06/01/17) sumatriptan (Unverified Allergy, Severe, HEART PALPITATIONS, 06/01/17) pregabalin (Unverified Allergy, Unknown, Psychosis, 06/01/17) Objective . Vital Signs Date Time Temp Pulse Resp B/P (MAP) Pulse Ox O2 Delivery O2 Flow Rate FiO2 06/10/17 11:34 98.4 54 20 144/73 (96) 96 06/10/17 08:44 97.8 71 22 176/79 (111) 95 06/10/17 05:31 98.1 61 18 167/73 (104) 97 06/10/17 01:01 97.8 61 18 127/55 (79) 100 06/09/17 21:01 97.6 67 16 172/74 (106) 96 06/09/17 20:00 Nasal Cannula 2.00 06/09/17 16:03 97.4 61 18 132/61 (84) 95 . Laboratory Tests Test 06/10/17 05:30 Creatinine 0.89 MG/DL Estimat Glomerular Filtration Rate 63 ML/MIN Imaging L Last Impressions Abdomen Ultrasound 06/09/17 0000 Signed Impressions: Service Date/Time: Friday, June 09, 2017 19:54 - CONCLUSION: Mild ascites too small to drain. Mahad Avila MD Neck CT 06/01/17 0435 Signed Impressions: Service Date/Time: Thursday, June 01, 2017 06:20 - CONCLUSION: 1. Findings suggestive left oral pharyngeal mass and concentric narrowing of the supraglottic airway at the level of the hyoid. 2. Incomplete evaluation of the oropharynx and hypopharynx due to motion/streak artifact. 3. Prominent gaseous distention of the upper thoracic esophagus. Patricio Lake MD Physical Exam PHYSICAL EXAMINATION: GENERAL: No acute distress. She is awake and alert and oriented. HEENT: Head is atraumatic. Extraocular movements are grossly intact. No icterus. No conjunctival erythema. Nasal septum without visible lesions. Oropharynx: Moist mucosa. NECK: Supple. No adenopathy or swelling. LUNGS: Breath sounds are clear. HEART: Regular S1, S2, without murmurs, rubs or gallops. ABDOMEN: Bowel sounds present. Tight nontender. Mildly distended and soft abdomen EXTREMITIES: No clubbing, cyanosis or edema. SKIN: No rash. No nail hemorrhages. NEUROLOGIC: Nonfocal. PSYCHIATRIC: Calm and cooperative. Assessment & Plan Remarks IMPRESSION: 1. Bacteremia due to methicillin-resistant staphylococcus aureus. - inapparent source. Two sets of the blood cultures are with methicillin-resistant staphylococcus aureus. - repeat BC mnegative ? sourse is the neck mass ? abscess 2. Positive nasal test for methicillin-resistant staphylococcus aureus. 3. Newly diagnosed mass Liver cirrhosis previously present on imaging studies , now with distended and tight abdomen ? ascites Low level coag neg staph and Bacillus bactremia - cw contaminant RECOMMENDATIONS: 1. Continue the vancomycin. 2. awiting 2 D echo dw RN dw pt, dgtr Michell Sharp MD Jun 10, 2017 13:27
--- NOTE | 2017-06-10 14:11 | ECHRPT ---
Indication: vegetations CONCLUSIONS Normal left ventricular size and wall thickness. The left ventricular systolic function is normal wi th an estimated ejection fraction in the range of 60-65%. Normal wall motion. No valvular abnormalities or vegetations are noted. BP: 167 / 73 HR: 61 Rhythm: Technical Quality: FINDINGS LEFT VENTRICLE Normal left ventricular size and wall thickness. The left ventricular systolic function is normal wi th an estimated ejection fraction in the range of 60-65%. Normal wall motion. RIGHT VENTRICLE Normal right ventricular size and systolic function. LEFT ATRIUM The left atrial size is normal. RIGHT ATRIUM The right atrial size is normal. ATRIAL SEPTUM Normal atrial septal thickness without atrial level shunting by limited color doppler interrogation. AORTA The aortic root and proximal ascending aorta are normal in size on limited imaging. MITRAL VALVE Structurally normal mitral valve. No mitral valve stenosis or regurgitation. AORTIC VALVE Trileaflet aortic valve. No aortic valve stenosis or regurgitation. TRICUSPID VALVE Structurally normal tricuspid valve. No tricuspid valve stenosis or regurgitation. PULMONARY VALVE The pulmonary valve is not well visualized. VESSELS The inferior vena cava is normal in size. PERICARDIUM No pericardial effusion. Lb Hooper MD (Electronically Signed) Final Date:10 June 2017 14:10
[2017-06-10 16:03] VITALS: BP 130/53; PULSE 60; RESP 18; TEMP 97.8; O2SAT 99
--- NOTE | 2017-06-10 16:36 | HHI.DS ---
Discharge Summary Admission Date Jun 01, 2017 at 08:50 Discharge Date: Jun 11, 2017 Admitting Diagnosis oropharyngeal mass (1) Oropharyngeal mass ICD Code: R22.1 - Localized swelling, mass and lump, neck Diagnosis: Principal Status: Acute (2) MRSA bacteremia ICD Code: R78.81 - Bacteremia Diagnosis: Principal (3) Thrombocytopenia ICD Code: D69.6 - Thrombocytopenia, unspecified Diagnosis: Secondary (4) COPD (chronic obstructive pulmonary disease) ICD Code: J44.9 - Chronic obstructive pulmonary disease, unspecified Diagnosis: Secondary (5) CAD (coronary artery disease) ICD Code: I25.10 - Atherosclerotic heart disease of [place] coronary artery without angina pectoris Diagnosis: Secondary (6) JERROD (acute kidney injury) ICD Code: N17.9 - Acute kidney failure, unspecified Diagnosis: Secondary Status: Acute (7) Oral thrush ICD Code: B37.0 - Candidal stomatitis Diagnosis: Principal Procedures Flexible laryngoscopy Brief History - From Admission This patient is a 66-year-old female with a history of coronary disease had 3 days of throat pain which was quite severe and finally she began have difficulty swallowing and could not even swallow her own spit. She is come to the emergency room after taking aspirin and still having severe pain. Pain is worse with coughing and swallowing. At home there was a temperature of 101 but she has not had a temperature here. She took vmlr-zsb-xmemxds cough medicine without improvement. She does have COPD but notes he has not really been short of breath. She has been seen by the ENT specialist and recommended for inpatient observation due to airway compromise. She has been started on IV steroids and antibiotics. CBC/BMP: 06/06/17 0940 06/10/17 0530 Significant Findings Laboratory Tests Test 06/08/17 05:30 06/08/17 07:10 06/10/17 05:30 Vancomycin Level Trough 25.5 MCG/ML (5.0-10.0) Estimat Glomerular Filtration Rate 61 ML/MIN (>89) 63 ML/MIN (>89) Imaging Last Impressions Abdomen Ultrasound 06/09/17 0000 Signed Impressions: Service Date/Time: Friday, June 09, 2017 19:54 - CONCLUSION: Mild ascites too small to drain. Mahad Avila MD Neck CT 06/01/17 0435 Signed Impressions: Service Date/Time: Thursday, June 01, 2017 06:20 - CONCLUSION: 1. Findings suggestive left oral pharyngeal mass and concentric narrowing of the supraglottic airway at the level of the hyoid. 2. Incomplete evaluation of the oropharynx and hypopharynx due to motion/streak artifact. 3. Prominent gaseous distention of the upper thoracic esophagus. Patricio Lake MD PE at Discharge GENERAL: Well-developed, obese in no distress SKIN: Warm and dry. Throat: Clear with no bleeding or mass CARDIOVASCULAR: Regular rate and rhythm. RESPIRATORY: No accessory muscle use. Clear to auscultation. Breath sounds equal bilaterally. GASTROINTESTINAL: Abdomen soft, non-tender, nondistended. Daily MUSCULOSKELETAL: Extremities without clubbing, cyanosis but with bilateral lower extremity pitting edema. No obvious deformities. NEUROLOGICAL: Awake and alert. No obvious cranial nerve deficits. Motor grossly within normal limits. Five out of 5 muscle strength in the arms and legs. Normal speech. PSYCHIATRIC: Appropriate mood and affect; insight and judgment normal. Hospital Course (1) severe pharyngitis Ms. Dodd is a 66 year old female with a history of O2 dependent COPD who was admitted due to throat pain. Work up indicated possible pharyngeal mass. ENT evaluated patient and performed laryngoscopy and recommended steroid and abx Clinically improved switch to p.o. steroids and continue IV vancomycin 06/08 Sp surgical biopsy on 06/04 ---> pathology shows acute on chronic inflammation however there is no evidence of dysplasia or malignancy identified in any of the tissues obtained. (2) MRSA bacteremia Continue IV vancomycin Repeat blood cultures negative to date Bactroban to nares x 7 days since MRSA nasal screen positive. Discussed the case with Dr. Sharp from infectious disease, negative echo. IV vancomycin for 2 weeks. Bacteremia likely secondary to #1 (3) Thrombocytopenia Platelets stable. Continue to monitor cbc. No evidence of active bleeding. (4) COPD (chronic obstructive pulmonary disease) Continue DuoNeb. Does not seem to be an exacerbation. (5) CAD (coronary artery disease) Continue beta-cristal Continue aspirin and Plavix. (6) JERROD (acute kidney injury) JERROD resolving. Creatinine trending down to 0.92. DC IV fluids (7) Oral thrush On Magic mouthwash, p.o. fluconazole. Improving. 8. Chronic liver disease as shown on previous imaging studies with possible cirrhosis. Negative hepatitis panel. Patient has been referred to GI by her PCP 9. Hypertension. Suboptimal control. Increase Lopressor to 25 mg twice a day. Continue to monitor DVT proph: Resume Lovenox SQ Pt Condition on Discharge: Stable Discharge Disposition: Disch w/ Home Health Serv Discharge Time: > 30 minutes Discharge Instructions DIET: Follow Instructions for: Heart Healthy Diet Activities you can perform: Regular-No Restrictions Activities to Avoid: Driving Follow up Referrals: Gastroenterology - 1 Week Infectious Disease - 1 Week PCP Follow-up - 1 Week SNF/[facility] New Medications: Bedside Commode (Bedside Commode) 1 Mis Mis EA .XX DIRECTED, #1 Fluconazole (Diflucan) 100 Mg Tab 100 MG PO DAILY for Infection, #7 TAB Nifedipine ER 24 HR (Nifedipine ER 24 HR) 60 Mg Tab 60 MG PO DAILY for Blood Pressure Management, #30 TAB Yivsflhp-Tdejmmasafpbzuk-Nmiwsjxsm Liq (Magic Mouthwash Adult Liq) 120 Ml Susp 5 ML SWISH-SWAL QID for Infection, #240 ML [Mupirocin 2% Oint] () 22 APPLIC/22 GM OINT 1 APPLIC TOPICAL Q12HR for Infection, #1 TUBE stop 06/13/17 Changed Medications: Metoprolol Tartrate (Metoprolol Tartrate) 25 Mg Tab 25 MG PO BID for Blood Pressure Management, #60 TAB 0 Refills (Changed from: DAILY; 30) Continued Medications: Albuterol 6.7 GM Inh (Proventil Hfa 6.7 GM Inh) 90 Mcg/Act Aer 2 PUFF INH Q6H PRN for SHORTNESS OF BREATH, #1 INHALER 0 Refills Aspirin (Aspirin Children's) 81 Mg Chew 81 MG CHEW BID, TAB 0 Refills Clopidogrel (Plavix) 75 Mg Tab 75 MG PO DAILY for Blood Clot Prevention, #30 TAB 0 Refills Docusate Sodium (Colace) 100 Mg Capsule 1 TAB PO BID Fluticasone Nasal [place] (Flonase Allergy Relief Children Nasal [place]) 50 Mcg/ Act [place] 2 SPRAY EACH NARE BID for Allergy Management, #1 BOTTLE 0 Refills 50 mcg/spray Furosemide (Lasix) 40 Mg Tab 40 MG PO BID, #60 TAB 0 Refills Morphine ER (Morphine ER) 30 Mg Tab 30 MG PO BID for Pain Management, TAB 0 Refills Olopatadine Opth 0.2% (Pataday Opth 0.2%) 0.2 % Drops 1 DROP EACH EYE DAILY for Allergies, #1 BOTTLE 0 Refills Omeprazole (Omeprazole) 20 Mg Tab 20 MG PO DAILY, #30 TAB 0 Refills Oxycodone (Oxycodone) 10 Mg Tab 10 MG PO Q6HR for Pain Management, TAB 0 Refills Potassium Chloride ER (Potassium Chloride ER) 10 Meq Cap 10 MEQ PO DAILY for Electrolyte Replacement, #30 CAP 0 Refills Promethazine (Promethazine) 12.5 Mg Tab 12.5 MG PO Q6H, TAB 0 Refills Trazodone (Trazodone) 150 Mg Tablet 150 MG PO HS for Control Depression, #30 TAB 0 Refills Discontinued Medications: Alprazolam (Xanax) 0.25 Mg Tab 0.25 MG PO TID PRN for ANXIETY, TAB 0 Refills Metformin (Metformin) 850 Mg Tab 850 MG PO DAILY for Blood Sugar Management, TAB 0 Refills With a meal Danie Wolf MD Jun 10, 2017 16:36
[2017-06-10 20:00] VITALS: BP 116/70; PULSE 59; RESP 20; TEMP 97.9; O2SAT 97
[2017-06-10] MEDS: traZODone HCL 50 MG TAB PO SCH (21:38)
[2017-06-11] VITALS: BP 128/58; PULSE 76; RESP 18; TEMP 97.3; O2SAT 96
[2017-06-11] MEDS: DEXAMETHASONE SOD PHOS 4 MG/ML VIAL IV SCH ×3 (00:13→15:13)
[2017-06-11] MEDS: PROMETHAZINE HCL 25 MG TAB PO SCH ×3 (02:28→15:13)
[2017-06-11] MEDS ORDERED: VANCOMYCIN 1,500 MG/NS 500 ML IV SCH ×2 (03:00)
[2017-06-11 04:00] VITALS: BP 144/66; PULSE 65; RESP 16; TEMP 97.6; O2SAT 99
[2017-06-11 08:00] VITALS: BP 162/68; PULSE 70; RESP 18; TEMP 97.9; O2SAT 99
[2017-06-11] MEDS: INSULIN ASPART SUPPLEMENTAL SCALE SQ SCH ×3 (08:00→17:00)
[2017-06-11] MEDS ORDERED: METO25TA3 PO (08:54)
--- NOTE | 2017-06-11 08:59 | HHI.FF ---
Infusion Therapy Location of Infusion Therapy: Home [facility] Care IV Infusion Order Patient Information Patient Weight 101.6 kg Diagnosis: Coded Allergies: amlodipine (Unverified Allergy, Severe, INTESTINAL REACTION PER PT, ) celecoxib (Unverified Allergy, Severe, GI BLEED, 06/01/17) codeine (Unverified Allergy, Severe, VOMITING, 06/01/17) enalaprilat (Unverified Allergy, Severe, DOES NOT REMEMBER, 06/01/17) gabapentin (Unverified Allergy, Severe, VOMITING, 06/01/17) naproxen (Unverified Allergy, Severe, GI BLEED, 06/01/17) ramipril (Unverified Allergy, Severe, VOMITING, 06/01/17) rofecoxib (Unverified Allergy, Severe, GI BLEED, 06/01/17) sumatriptan (Unverified Allergy, Severe, HEART PALPITATIONS, 06/01/17) pregabalin (Unverified Allergy, Unknown, Psychosis, 06/01/17) Administer Medication Vancomycin 1.5 grams IV q 24 hours Start Treatment: Jun 11, 2017 Stop Treatment: Jun 22, 2017 Additional Information Venous access: PICC Line Additional Instructions [x] Peripheral flush and dressing changes per protocol [x] Implanted port and central director of online merchandising: * Implanted port: 10 ml Normal Saline followed by 5 ml Heparin 100 units/ml Heparin flush after each use and monthly to maintain. [] May leave port accessed during therapy. [] May leave peripheral site accessed for duration of therapy. [x] If patient has SOB or respiratory distress, check oxygen saturation. If less than 90% or clinical signs of respiratory distress, administer oxygen at 2 L/min. via nasal cannula and notify physician. [x] Anaphylaxis/Reaction orders: * Stop infusion. * Keep IV line open with saline flush. * Notify physician. * Monitor vital signs every 15 minutes until symptoms resolve. * Check Oxygen saturation; Oxygen at 2 L/min. via nasal cannula if less than 90% or clinical signs of respiratory distress. * Administer diphenhydramine (Benadryl) 25 mg IV STAT, (unless patient has received as pre-med). May repeat once, if necessary. * Solu-Cortef 250 mg IVP over 30-60 seconds, use 100 mg vials for each dissolution. * Epinephrine (1mg/1 ml) 0.3 mg subcutaneously or IVP now with any signs of respiratory distress. * Check with physician for new additional pre-med orders if patient is re- challenged or re-treated. [x] May remove PICC line when treatment complete, after confirming with Physician. [x] If the patient is admitted to the hospital, the ED, or transferred via [facility] , complete transfer form including medication reconciliation order sheet. Laboratory Tests Weekly Labs: CBC w/diff, Creatinine, SED Rate, Vancomycin Trough Michell Sharp MD Jun 11, 2017 08:59
[2017-06-11] MEDS ORDERED: METOPROLOL TARTRATE 25 MG TAB PO SCH (09:00)
[2017-06-11] MEDS: DOCUSATE SODIUM 50 MG/SENNA 8.6 MG TAB PO SCH (09:00)
--- NOTE | 2017-06-11 09:11 | HHI.PR ---
Addendum to Inpatient Note Additional Information 2 S echo negative for veg's cont vanco x 2 weeks total Michell Sharp MD Jun 11, 2017 09:11
[2017-06-11] MEDS: NYSTAT/DIPHENHY/LIDO MOUTHWASH (Adult) 120ML SWISH-SWAL SCH ×2 (09:14→12:41)
[2017-06-11] MEDS: SODIUM CHLORIDE 0.9% FLUSH 10 ML FLUSH IV FLUSH SCH ×2 (09:16)
[2017-06-11] MEDS: ASPIRIN 81 MG CHEW TAB CHEW SCH (09:19)
[2017-06-11] MEDS: CLOPIDOGREL 75 MG TAB PO SCH (09:20)
[2017-06-11] MEDS: MORPHINE SULFATE 30 MG CONTROLLED RELEASE TAB PO SCH (09:21)
[2017-06-11] MEDS: NIFEdipine 60 MG SUSTAINED RELEASE TAB PO SCH (09:21)
[2017-06-11] MEDS: FLUCONAZOLE 100 MG TAB PO SCH (09:21)
[2017-06-11] MEDS: MUPIROCIN 2% OINT 22 GM TUBE TOPICAL SCH (09:22)
[2017-06-11] MEDS: OLOPATADINE HCL 0.1% OPHT SOLN 5 ML BTL EACH EYE SCH (09:23)
[2017-06-11] MEDS: FLUTICASONE PROPIONATE 50 MCG/ACT 16 GM NASAL SPRAY EACH NARE SCH (09:23)
[2017-06-11] MEDS: ENOXAPARIN SODIUM 40 MG/0.4 ML SYRINGE SQ SCH (09:23)
[2017-06-11 12:00] VITALS: BP 148/64; PULSE 59; RESP 18; TEMP 97.8; O2SAT 100
--- NOTE | 2017-06-11 13:07 | HHI.PR ---
Subjective Remarks Follow-up hypertension. BP slightly elevated patient denies headache or dizziness. Discussed with nursing, patient is cleared for discharge pending IV orders for outpatient IV vancomycin Objective Vitals Vital Signs Date Time Temp Pulse Resp B/P (MAP) Pulse Ox O2 Delivery O2 Flow Rate FiO2 06/11/17 08:00 97.9 70 18 162/68 (99) 99 06/11/17 07:00 Nasal Cannula 2.00 06/11/17 04:00 97.6 65 16 144/66 (92) 99 06/11/17 04:00 Nasal Cannula 2.00 06/11/17 00:00 97.3 76 18 128/58 (81) 96 06/11/17 00:00 Nasal Cannula 2.00 06/10/17 20:00 97.9 59 20 116/70 (85) 97 06/10/17 20:00 Nasal Cannula 2.00 06/10/17 16:03 97.8 60 18 130/53 (78) 99 I/O 06/10/17 06/10/17 06/10/17 06/11/17 06/11/17 06/11/17 07:00 15:00 23:00 07:00 15:00 23:00 Intake Total 720 ml 360 ml Output Total 450 ml Balance -450 ml 720 ml 360 ml Intake Oral 720 ml 360 ml Output Urine Total 450 ml # Voids 3 1 # Bowel Movements 1 0 Result Diagram: 06/10/17 0530 Imaging Last Impressions Abdomen Ultrasound 06/09/17 0000 Signed Impressions: Service Date/Time: Friday, June 09, 2017 19:54 - CONCLUSION: Mild ascites too small to drain. Mahad Avila MD Neck CT 06/01/17 0435 Signed Impressions: Service Date/Time: Thursday, June 01, 2017 06:20 - CONCLUSION: 1. Findings suggestive left oral pharyngeal mass and concentric narrowing of the supraglottic airway at the level of the hyoid. 2. Incomplete evaluation of the oropharynx and hypopharynx due to motion/streak artifact. 3. Prominent gaseous distention of the upper thoracic esophagus. Patricio Lake MD Objective Remarks GENERAL: Well-developed, obese in no distress SKIN: Warm and dry. Throat: Clear with no bleeding or mass CARDIOVASCULAR: Regular rate and rhythm. RESPIRATORY: No accessory muscle use. Clear to auscultation. Breath sounds equal bilaterally. GASTROINTESTINAL: Abdomen soft, non-tender, nondistended. MUSCULOSKELETAL: Extremities without clubbing, cyanosis but with bilateral lower extremity pitting edema. No obvious deformities. NEUROLOGICAL: Awake and alert. No obvious cranial nerve deficits. Motor grossly within normal limits. Five out of 5 muscle strength in the arms and legs. Normal speech. Procedures Flexible laryngoscopy A/P Problem List: (1) Oropharyngeal mass ICD Code: R22.1 - Localized swelling, mass and lump, neck Status: Acute (2) MRSA bacteremia ICD Code: R78.81 - Bacteremia (3) Thrombocytopenia ICD Code: D69.6 - Thrombocytopenia, unspecified (4) COPD (chronic obstructive pulmonary disease) ICD Code: J44.9 - Chronic obstructive pulmonary disease, unspecified (5) CAD (coronary artery disease) ICD Code: I25.10 - Atherosclerotic heart disease of [place] coronary artery without angina pectoris (6) JERROD (acute kidney injury) ICD Code: N17.9 - Acute kidney failure, unspecified Status: Acute (7) Oral thrush ICD Code: B37.0 - Candidal stomatitis Assessment and Plan (1) severe pharyngitis Ms. Dodd is a 66 year old female with a history of O2 dependent COPD who was admitted due to throat pain. Work up indicated possible pharyngeal mass. ENT evaluated patient and performed laryngoscopy and recommended steroid and abx Clinically improved switch to p.o. steroids and continue IV vancomycin 06/08 Sp surgical biopsy on 06/04 ---> pathology shows acute on chronic inflammation however there is no evidence of dysplasia or malignancy identified in any of the tissues obtained. (2) MRSA bacteremia Continue IV vancomycin Repeat blood cultures negative to date Bactroban to nares x 7 days since MRSA nasal screen positive. Discussed the case with Dr. Sharp from infectious disease, negative echo. IV vancomycin for 2 weeks. Bacteremia likely secondary to #1 (3) Thrombocytopenia Platelets stable. Continue to monitor cbc. No evidence of active bleeding. (4) COPD (chronic obstructive pulmonary disease) Continue DuoNeb. Does not seem to be an exacerbation. (5) CAD (coronary artery disease) Continue beta-cristal Continue aspirin and Plavix. (6) JERROD (acute kidney injury) JERROD resolving. Creatinine trending down to 0.92. DC IV fluids (7) Oral thrush On Magic mouthwash, p.o. fluconazole. Improving. 8. Chronic liver disease as shown on previous imaging studies with possible cirrhosis. Negative hepatitis panel. Patient has been referred to GI by her PCP DVT proph: Resume Lovenox SQ Discharge Planning Stable for discharge Problem Qualifiers (1) CAD (coronary artery disease): Qualified Codes: I25.10 - Atherosclerotic heart disease of [place] coronary artery without angina pectoris Danie Wolf MD Jun 11, 2017 13:07
[2017-06-11] MEDS: PANTOPRAZOLE SODIUM 40 MG VIAL IV PUSH SCH (15:14)
[2017-06-11 16:00] VITALS: BP 130/53; PULSE 64; RESP 18; TEMP 97.4; O2SAT 100
[2017-06-12] MEDS ORDERED: PHARMACY ORDERED LAB ONE (14:45)
[2017-06-12] MEDS ORDERED: OXYC1TAB36 PO (16:39)
== END 2017-06-11 17:53 | disposition home health service (06) | DRG 607 ==
LOC: PHED 04:21 → PHEDA 08:50 → HIME 15:09 → N04A 06-03 18:20
PROVIDERS: ADMIT Internal Medicine; ATTEND Internal Medicine
PROC: 0CJS8ZZ Inspection of Larynx, Via Natural or Artificial Opening Endoscopic (ICD-10-PCS; principal; 2017-06-02)
PROC: 0CBR8ZX Excision of Epiglottis, Via Natural or Artificial Opening Endoscopic, Diagnostic (ICD-10-PCS; 2017-06-04)
PROC: 0CBS8ZX Excision of Larynx, Via Natural or Artificial Opening Endoscopic, Diagnostic (ICD-10-PCS; 2017-06-04)
PROC: 0CBM8ZX Excision of Pharynx, Via Natural or Artificial Opening Endoscopic, Diagnostic (ICD-10-PCS; 2017-06-04)
DX: R22.1 Localized swelling, mass and lump, neck (principal); N17.9 Acute kidney failure, unspecified; E11.22 Type 2 diabetes mellitus with diabetic chronic kidney disease; B37.0 Candidal stomatitis; R78.81 Bacteremia; Z99.81 Dependence on supplemental oxygen; D69.6 Thrombocytopenia, unspecified; Z68.41 Body mass index [BMI] 40.0-44.9, adult; J02.8 Acute pharyngitis due to other specified organisms; J44.9 Chronic obstructive pulmonary disease, unspecified; I12.9 Hypertensive chronic kidney disease with stage 1 through stage 4 chronic kidney disease, or unspecified chronic kidney disease; N18.9 Chronic kidney disease, unspecified; E78.5 Hyperlipidemia, unspecified; I25.10 Atherosclerotic heart disease of native coronary artery without angina pectoris; M79.7 Fibromyalgia; K21.9 Gastro-esophageal reflux disease without esophagitis; G89.29 Other chronic pain; B95.62 Methicillin resistant Staphylococcus aureus infection as the cause of diseases classified elsewhere; R49.0 Dysphonia; R11.0 Nausea; E66.9 Obesity, unspecified; Z79.84 Long term (current) use of oral hypoglycemic drugs; Z95.1 Presence of aortocoronary bypass graft; Z87.891 Personal history of nicotine dependence; I25.2 Old myocardial infarction; Z79.02 Long term (current) use of antithrombotics/antiplatelets; Z79.82 Long term (current) use of aspirin
CPT/HCPCS: 36569; 70491; 76705; 76937; 80048; 80053; 80074; 80202; 82565; 82948; 83605; 85007; 85025; 85027; 86403; 87040; 87081; 87186; 87205; 87641; 87880; 88305; 88311; 93308; 94640; 96365; 96375; C9113; J0295; J0330; J0360; J1100; J1642; J1650; J1815; J2060; J2270; J2405; J3010; J3370; J7030; J7040; J7613; Q0169; Q9967

== ENCOUNTER 2017-06-12 13:15 | Emergency (ER) | payer MEDICARE ==
[~2017-06-12] VITALS: Ht 154.9 cm; Wt 103.0 kg
[~2017-06-12 13:15] MED LIST changes: -ALPR.25 PO; +BEDSIDE COMMODE1 MI1; +DIFL100T PO; +MAGICADU2 SWISH-SWAL; -METF850T PO; +Mupirocin 2% Oint TOPICAL; +NIFE60TA8 PO
[2017-06-12 13:32] VITALS: BP 165/75; PULSE 62; RESP 18; TEMP 98.7; O2SAT 97
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
--- NOTE | 2017-06-12 15:32 | RADRPT ---
EXAM DATE/TIME: 06/12/2017 14:47 [facility] COMPARISON: No previous studies available for comparison. INDICATIONS : Hit left foot on a door, foot is swollen, black, weeping fluid, painful MEDICAL HISTORY : Diabetes mellitus type II. Lupus. Chronic obstructive pulmonary disease. SURGICAL HISTORY : None. ENCOUNTER: Initial ACUITY: 1 day PAIN SCORE: 8/10 LOCATION: Left foot FINDINGS: Two view examination of the left foot demonstrates soft tissue swelling of the forefoot, especially i n the dorsum of the foot. No acute bony destructive change. Questionable nondisplaced fractures throu gh the proximal third, fourth and fifth toes. CONCLUSION: 1. Extensive soft tissue swelling of the forefoot with questionable nondisplaced fractures of the lat eral toes. Genaro Rockwell MD on June 12, 2017 at 15:29 Board Certified Radiologist. This report was verified electronically.
[2017-06-12] MEDS ORDERED: ONDANSETRON ODT 4 MG TAB PO ONE (15:45)
[2017-06-12] MEDS ORDERED: oxyCODONE/ACETAMINOPHEN 10 MG/325 MG TAB PO ONE (15:45)
[2017-06-12] MEDS ORDERED: ONDANSETRON HCL 4 MG/2 ML VIAL IV PUSH ONE (15:45)
[2017-06-12 15:59] VITALS: BP 145/55; PULSE 67; RESP 16; O2SAT 100
[2017-06-12] MEDS ORDERED: OXYC1TAB36 PO (16:39)
== END 2017-06-12 17:26 ==
LOC: PHED 13:15
DX: S90.32XA Contusion of left foot, initial encounter (principal); M06.9 Rheumatoid arthritis, unspecified; M32.9 Systemic lupus erythematosus, unspecified; J44.9 Chronic obstructive pulmonary disease, unspecified; E11.9 Type 2 diabetes mellitus without complications; I10 Essential (primary) hypertension; I25.10 Atherosclerotic heart disease of native coronary artery without angina pectoris; K21.9 Gastro-esophageal reflux disease without esophagitis; W22.8XXA Striking against or struck by other objects, initial encounter
CPT/HCPCS: 73620; 99283; L3260

== ENCOUNTER 2017-06-14 14:50 | Emergency (ER) | payer MEDICARE ==
[~2017-06-14] VITALS: Ht 172.7 cm; Wt 87.0 kg
[~2017-06-14 14:50] MED LIST changes: +OXYC1TAB36 PO
[2017-06-14] MEDS ORDERED: EPINEPHrine HCL (1:10,000) 1 MG/10 ML SYRINGE IV ONE (14:51)
[2017-06-14 15:34] VITALS: PULSE 40; RESP 16; TEMP 97.8; O2SAT 96
[2017-06-14] MEDS ORDERED: PIPERACIL-TAZO 4.5 GM PREMIX 100 ML IV STA (15:57)
[2017-06-14] MEDS ORDERED: VANCOMYCIN INJ 1,000 MG in SODIUM CHLOR 0.9% 250 ML INJ 250 ML IV STA (15:57)
[2017-06-14 16:01] VITALS: BP 75/38; O2SAT 95
[2017-06-14] MEDS ORDERED: SODIUM CHLOR 0.9% 1000 ML INJ 1,000 ML IV ONE ×2 (16:15→16:30)
[2017-06-14] MEDS ORDERED: VANC1000P IV (16:44)
--- NOTE | 2017-06-14 17:01 | RADRPT ---
EXAM DATE/TIME: 06/14/2017 16:29 [facility] COMPARISON: CHEST SINGLE AP, November 05, 2015, 19:25. FOOT LEFT LIMITED (2VWS), June 12, 2017, 14:47. INDICATIONS : Chest pain. MEDICAL HISTORY : Cardiovascular disease. SURGICAL HISTORY : Discectomy, cervical. CABG ENCOUNTER: Initial ACUITY: 1 day PAIN SCORE: Non-responsive. LOCATION: Bilateral chest FINDINGS: The heart is enlarged. The patient is post bypass. There diffuse chronic appearing interstitial trujillo es throughout both lungs. There is a PICC in good position. The visualized bony structures are grossl y intact. CONCLUSION: 1. Cardiomegaly. 2. Chronic interstitial changes. 3. Similar findings compared to a prior of 11/05/15. Rick Lala MD on June 14, 2017 at 16:58 Board Certified Radiologist. This report was verified electronically.
--- NOTE | 2017-06-14 17:02 | RADRPT ---
EXAM DATE/TIME: 06/14/2017 16:30 [facility] COMPARISON: CHEST SINGLE AP, June 14, 2017, 16:29. INDICATIONS : Left lower leg swelling. MEDICAL HISTORY : Cardiovascular disease. SURGICAL HISTORY : Discectomy, cervical. CABG ENCOUNTER: Initial ACUITY: 1 day PAIN SCORE: Non-responsive. LOCATION: Left tibia. FINDINGS: There are mild arthritic changes within the knee. The tibia and fibula are intact. CONCLUSION: 1. No acute bony abnormality of the tibia or the fibula identified. Rick Lala MD on June 14, 2017 at 16:59 Board Certified Radiologist. This report was verified electronically.
--- NOTE | 2017-06-14 17:03 | RADRPT ---
EXAM DATE/TIME: 06/14/2017 16:33 [facility] COMPARISON: TIBIA/FIBULA LEFT (AP/LAT), June 14, 2017, 16:30. INDICATIONS : Left foot swelling and bruising. MEDICAL HISTORY : Cardiovascular disease. SURGICAL HISTORY : Discectomy, cervical. CABG ENCOUNTER: Initial ACUITY: 1 day PAIN SCORE: Non-responsive. LOCATION: Left foot. FINDINGS: There is a large area of soft tissue swelling along the dorsal aspect of the foot. No retained foreig n body is seen. The visualized osseous structures are grossly intact. CONCLUSION: Large area of soft tissue swelling along the dorsal aspect of the foot. Rick Lala MD on June 14, 2017 at 17:00 Board Certified Radiologist. This report was verified electronically.
[2017-06-14] MEDS ORDERED: MORPHINE SULFATE 8 MG/ML INJ ONE (17:19)
[2017-06-14 17:34] LABS: AUTOMATED NEUTROPHIL # 20.4 TH/MM3 (1.8-7.7); BASOPHIL % 0.1 % (0.0-2.0); EOSINOPHIL # 3.3 TH/MM3 (0-0.4); HEMATOCRIT 27.7 % (35.0-46.0); HEMOGLOBIN 9.1 GM/DL (11.6-15.3); LYMPH % 1.5 % (9.0-44.0); LYMPHOCYTE # 0.4 TH/MM3 (1.0-4.8); MEAN CELL VOLUME 97.7 FL (80.0-100.0); MEAN CORPUSCULAR HGB CONC 32.8 % (32.0-36.0); MEAN PLATELET VOLUME 11.5 FL (7.0-11.0); MONO % 5.5 % (0.0-8.0); MONOCYTE # 1.4 TH/MM3 (0-0.9); NEUT % 79.9 % (16.0-70.0); PLATELET COUNT 55 TH/MM3 (150-450); RED BLOOD COUNT 2.83 MIL/MM3 (4.00-5.30); RED CELL DISTRIBUTION WIDTH 15.2 % (11.6-17.2); WHITE BLOOD COUNT 25.5 TH/MM3 (4.0-11.0)
[2017-06-14 17:42] LABS: INTERNATIONAL NORMALIZED RATIO 1.9 RATIO; PROTHROMBIN TIME - PATIENT 19.7 SEC (9.8-11.6)
--- NOTE | 2017-06-14 17:52 | RADRPT ---
EXAM DATE/TIME: 06/14/2017 16:59 [facility] COMPARISON: No previous studies available for comparison. INDICATIONS : Weakness RADIATION DOSE: 56.35 CTDIvol (mGy) MEDICAL HISTORY : Cerebrovascular disease. Cardiovascular disease Chronic obstructive pulmonary disease.Hypertension,di abetes,lupus SURGICAL HISTORY : Discectomy ENCOUNTER: Initial ACUITY: 1 day PAIN SCALE: 0/10 LOCATION: cranial TECHNIQUE: Multiple contiguous axial images were obtained of the head. Using automated exposure control and adj ustment of the mA and/or kV according to patient size, radiation dose was kept as low as reasonably a chievable to obtain optimal diagnostic quality images. DICOM format image data is available electro nically for review and comparison. FINDINGS: CEREBRUM: The ventricles are normal for age. No evidence of midline shift, mass lesion, hemorrhage or acute in farction. No extra-axial fluid collections are seen. POSTERIOR FOSSA: The cerebellum and brainstem are intact. The 4th ventricle is midline. The cerebellopontine angle i s unremarkable. EXTRACRANIAL: The visualized portion of the orbits is intact. SKULL: The calvaria is intact. No evidence of skull fracture. CONCLUSION: 1. No acute findings in the brain. Patricio Lake MD on June 14, 2017 at 17:49 Board Certified Radiologist. This report was verified electronically.
[2017-06-14] MEDS ORDERED: LORazepam 2 MG/ML VIAL IV PUSH ONE (18:00)
[2017-06-14] MEDS: RESP: ALBUTEROL 2.5 MG/3 ML NEB (SCH) INH ×2 (18:04→18:05)
--- NOTE | 2017-06-14 18:24 | PD ---
HPI Chief Complaint: General Weakness Time Seen by Provider: 16:02 Travel History International Travel<30 days: No Contact w/Intl Traveler<30days: No Traveled to known affect area: No History of Present Illness HPI Patient was sent from [facility] for reported shortness of breath per paperwork from the patient. Patient was recently discharged from hospital diagnosed with bacteremia on IV vancomycin secondary to an positive MRSA blood cultures. Patient is complaining of generalized body pain and pain in her left foot. Describes pain as aching like in nature without radiation. Patient states that it turned black yesterday. Patient denies any fevers, nausea, vomiting, loss change in bowel or bladder, or headaches. Denies anything making symptoms better. Palpation makes pain worse. PFSH Past Medical History Hx Anticoagulant Therapy: Yes Arthritis: Yes (RA) Asthma: No Autoimmune Disease: Yes (LUPUS) Blood Disorders: No Anxiety: Yes Depression: Yes Heart Rhythm Problems: Yes Cancer: No Cardiac Catheterization: Yes Cardiovascular Problems: Yes High Cholesterol: Yes Chemotherapy: No Chest Pain: Yes Congestive Heart Failure: No COPD: Yes Cerebrovascular Accident: Yes Coronary Artery Disease: Yes Diabetes: Yes Patient Takes Glucophage: No Diminished Hearing: No Endocrine: No Gastrointestinal Disorders: Yes GERD: Yes Glaucoma: No Genitourinary: No Headaches: No Hepatitis: No Hiatal Hernia: No Heparin Induced Thrombocytopen: No Hypertension: Yes (controlled) Immune Disorder: Yes Kidney Stones: No Musculoskeletal: Yes (SPINAL STENOSIS, FIBROMYALGIA) Neurologic: Yes Psychiatric: Yes (PTSD) Reproductive: No Respiratory: Yes Immunizations Current: No Myocardial Infarction: Yes Radiation Therapy: No Renal Failure: No Seizures: No Sickle Cell Disease: No Sleep Apnea: No Thyroid Disease: No Ulcer: No Ovarian Cysts: Yes Past Surgical History Abdominal Surgery: Yes (partial colectomy) AICD: No Appendectomy: Yes Body Medical Devices: titanium plate in neck Cardiac Surgery: Yes (CABG X 3 VESSELS) Cholecystectomy: Yes Coronary Artery Bypass Graft: Yes (TRIPLE BYPASS) Ear Surgery: No Endocrine Surgery: No Eye Surgery: No Genitourinary Surgery: No Gynecologic Surgery: No Hysterectomy: Yes Insulin Pump: No Joint Replacement: No Neurologic Surgery: Yes (discectomy) Oral Surgery: No Pacemaker: No Thoracic Surgery: No Tonsillectomy: Yes Other Surgery: Yes Social History Alcohol Use: No Tobacco Use: No Substance Use: No Allergies-Medications (Allergen,Severity, Reaction): Coded Allergies: amlodipine (Verified Allergy, Severe, INTESTINAL REACTION PER PT, 06/12/17) celecoxib (Verified Allergy, Severe, GI BLEED, 06/12/17) codeine (Verified Allergy, Severe, VOMITING, 06/12/17) enalaprilat (Verified Allergy, Severe, DOES NOT REMEMBER, 06/12/17) gabapentin (Verified Allergy, Severe, VOMITING, 06/12/17) naproxen (Verified Allergy, Severe, GI BLEED, 06/12/17) ramipril (Verified Allergy, Severe, VOMITING, 06/12/17) rofecoxib (Verified Allergy, Severe, GI BLEED, 06/12/17) sumatriptan (Verified Allergy, Severe, HEART PALPITATIONS, 06/12/17) pregabalin (Verified Allergy, Unknown, Psychosis, 06/12/17) Reported Meds & Prescriptions Reported Meds & Active Scripts Active Oxycodone-Acetaminophen 10-325 mg Tab 1 Tab PO Q4H PRN Metoprolol Tartrate 25 Mg Tab 25 Mg PO BID [Mupirocin 2% Oint] 22 APPLIC/22 GM Oint 1 Applic TOPICAL Q12HR stop 06/13/17 Magic Mouthwash Adult Liq (Multi-Ingredient Mouthwash/Gargle) 120 Ml Susp 5 Ml SWISH-SWAL QID Nifedipine ER 24 HR (Nifedipine) 60 Mg Tab 60 Mg PO DAILY Diflucan (Fluconazole) 100 Mg Tab 100 Mg PO DAILY Bedside Commode (Device) 1 Mis Mis Ea .XX DIRECTED Reported Vancomycin Inj (Vancomycin HCl) 1 Gram Inj 1,000 Mg IV DAILY Trazodone (Trazodone HCl) 150 Mg Tablet 150 Mg PO HS Promethazine (Promethazine HCl) 12.5 Mg Tab 12.5 Mg PO Q6H Potassium Chloride ER (Potassium Chloride) 10 Meq Cap 10 Meq PO DAILY [Oxygen] 2 Liter INH DIRECTED Omeprazole 20 Mg Tab 20 Mg PO DAILY Lasix (Furosemide) 40 Mg Tab 40 Mg PO BID Flonase Allergy Relief Children Nasal Perryman (Fluticasone Nasal Perryman) 50 Mcg/ Act Perryman 2 Perryman EACH NARE BID 50 mcg/spray Colace (Docusate Sodium) 100 Mg Capsule 1 Tab PO BID Plavix (Clopidogrel Bisulfate) 75 Mg Tab 75 Mg PO DAILY Aspirin Children's (Aspirin) 81 Mg Chew 81 Mg CHEW BID Proventil Hfa 6.7 GM Inh (Albuterol Sulfate) 90 Mcg/Act Aer 2 Puff INH Q6H PRN Review of Systems Except as stated in HPI: all other systems reviewed are Neg Physical Exam Narrative GENERAL: Well-developed, overly nourished, in no acute distress, and non-ill appearing. SKIN: Multiple areas of ecchymosis noted on bilateral upper extremities, abdomen , significantly on the left foot. There is small fluid collection noted on left foot. HEAD: Atraumatic. Normocephalic. EYES: Pupils equal and round. EOMI. No scleral icterus. No injection or drainage. ENT: No nasal bleeding or discharge. Mucous membranes pink and moist. NECK: Trachea midline. Supple. No nuclear rigidity. CARDIOVASCULAR: Bradycardia rate and rhythm. No murmur appreciated. Radial dorsal pulses are diminished. RESPIRATORY: No accessory muscle use. No respiratory distress. Decreased breath sounds throughout. Breath sounds equal bilaterally. MUSCULOSKELETAL: No obvious deformities. No clubbing. No cyanosis. No edema. Full range of motion. NEUROLOGICAL: Awake and alert. No obvious cranial nerve deficits. Motor grossly within normal limits. Normal speech. PSYCHIATRIC: Appropriate mood and affect; insight and judgment normal. Data Data Last Documented VS Vital Signs Date Time Temp Pulse Resp B/P (MAP) Pulse Ox O2 Delivery O2 Flow Rate FiO2 06/14/17 16:01 45 25 75/38 (50) 95 Nasal Cannula 2.00 06/14/17 15:34 97.8 Orders Orders Sepsis Workup Initiated (06/14/17 ) Electrocardiogram (06/14/17 15:57) Complete Blood Count With Diff (06/14/17 15:57) Comprehensive Metabolic Panel (06/14/17 15:57) Prothrombin Time / Inr (Pt) (06/14/17 15:57) Act Partial Throm Time (Ptt) (06/14/17 15:57) Lactic Acid Sepsis Protocol (06/14/17 15:57) Magnesium (Mg) (06/14/17 15:57) Ckmb (Isoenzyme) Profile (06/14/17 15:57) Troponin I (06/14/17 15:57) Urinalysis - C+S If Indicated (06/14/17 15:57) Blood Culture (06/14/17 15:57) Chest, Single Ap (06/14/17 15:57) Blood Glucose (06/14/17 15:57) Ecg Monitoring (06/14/17 15:57) Iv Access Insert/Monitor (06/14/17 15:57) Oximetry (06/14/17 15:57) Oxygen Administration (06/14/17 15:57) Piperacil-Tazo 4.5 Gm Premix (Zosyn 4.5 (06/14/17 15:57) Vancomycin Inj (Vancomycin Inj) (06/14/17 15:57) Foot, Complete ([id number]) (06/14/17 ) Tibia/Fibula (Ap/Lat) (06/14/17 ) Sodium Chlor 0.9% 1000 Ml Inj (Ns 1000 M (06/14/17 16:15) Ammonia (06/14/17 16:21) Sodium Chlor 0.9% 1000 Ml Inj (Ns 1000 M (06/14/17 16:30) Ct Brain W/O Iv Contrast(Rout) (06/14/17 ) Morphine Inj (Morphine Inj) (06/14/17 17:19) Code Status (06/14/17 17:31) Hospice Consult (06/14/17 17:45) Albuterol Neb (Albuterol Neb) (06/14/17 18:00) Lorazepam Inj (Ativan Inj) (06/14/17 18:00) CKMB (06/14/17 17:05) CKMB% (06/14/17 17:05) Labs Laboratory Tests Test 06/14/17 17:05 White Blood Count 25.5 TH/MM3 Red Blood Count 2.83 MIL/MM3 Hemoglobin 9.1 GM/DL Hematocrit 27.7 % Mean Corpuscular Volume 97.7 FL Mean Corpuscular Hemoglobin 32.0 PG Mean Corpuscular Hemoglobin Concent 32.8 % Red Cell Distribution Width 15.2 % Platelet Count 55 TH/MM3 Mean Platelet Volume 11.5 FL Neutrophils (%) (Auto) 79.9 % Lymphocytes (%) (Auto) 1.5 % Monocytes (%) (Auto) 5.5 % Eosinophils (%) (Auto) 13.0 % Basophils (%) (Auto) 0.1 % Neutrophils # (Auto) 20.4 TH/MM3 Lymphocytes # (Auto) 0.4 TH/MM3 Monocytes # (Auto) 1.4 TH/MM3 Eosinophils # (Auto) 3.3 TH/MM3 Basophils # (Auto) 0.0 TH/MM3 CBC Comment AUTO DIFF Differential Total Cells Counted 100 Neutrophils % (Manual) 29 % Band Neutrophils % 61 % Monocytes % 2 % Neutrophils # (Manual) 25.0 TH/MM3 Metamyelocytes 7 % Myelocytes 1 % Nucleated Red Blood Cells 1 /100 WBC Differential Comment FINAL DIFF MANUAL Toxic Vacuolation PRESENT Platelet Estimate LOW Platelet Morphology Comment ENLARGED Ovalocytes 1+ Prothrombin Time 19.7 SEC Prothromb Time International Ratio 1.9 RATIO Activated Partial Thromboplast Time 39.0 SEC Blood Urea Nitrogen 35 MG/DL Creatinine 2.73 MG/DL Random Glucose 22 MG/DL Total Protein 4.3 GM/DL Albumin 1.9 GM/DL Calcium Level 7.4 MG/DL Magnesium Level 1.7 MG/DL Alkaline Phosphatase 69 U/L Aspartate Amino Transf (AST/SGOT) 1044 U/L Alanine Aminotransferase (ALT/SGPT) 965 U/L Total Bilirubin 3.0 MG/DL Sodium Level 139 MEQ/L Potassium Level 4.4 MEQ/L Chloride Level 106 MEQ/L Carbon Dioxide Level 15.6 MEQ/L Anion Gap 17 MEQ/L Estimat Glomerular Filtration Rate 17 ML/MIN Lactic Acid Level 9.0 mmol/L Protein Corrected Calcium 9.0 MG/DL Total Creatine Kinase 455 U/L Creatine Kinase MB 20.3 NG/ML Creatine Kinase MB % 4.5 % Troponin I 0.20 NG/ML MDM Medical Decision Making Medical Screen Exam Complete: Yes Emergency Medical Condition: Yes Differential Diagnosis Septic shock, sepsis, pneumonia, COPD, metabolic disturbance, UTI Narrative Course Patient seen and examined. IV of the staff patient was placed on cardiac monitoring. Upon evaluating patient patient was noted to have diminished pulses , bradycardia, and is unable to obtain blood pressure. I gave verbal order for IV fluids and notified Dr. Raphael immediately who came and evaluated the patient. Initial laboratory radiological studies were ordered along with IV antibiotics. As noted on patient's documentation that she last received vancomycin this morning at the facility where she came from. Patient's daughter came to bedside reports that her mother has been acting not herself and seems to be more confused than normal. Alexi Savage Jun 14, 2017 18:24
[2017-06-14 18:25] LABS: ALBUMIN 1.9 GM/DL (3.4-5.0); BICARBONATE 15.6 MEQ/L (21.0-32.0); CALCIUM 7.4 MG/DL (8.5-10.1); CREATININE 2.73 MG/DL (0.50-1.00); MAGNESIUM 1.7 MG/DL (1.5-2.5); TOTAL PROTEIN 4.3 GM/DL (6.4-8.2); TROPONIN I 0.2 NG/ML (0.02-0.05)
[2017-06-14 18:33] LABS: BANDS 61 % (0-6); CORRECTED NUCLEATED RBC 1 /100 WBC (0-0); METAMYELOCYTES 7 % (0-1); MONOCYTES 2 % (0-8); MYELOCYTES 1 % (0-0); NUCLEATED RED BLOOD CELL 1 (0-0); POLYS (SEG NEUTROPHILS) 29 % (16-70)
[2017-06-14 18:36] LABS: OVALOCYTES 1+ (NORMAL); TOXIC VACUOLATION PRESENT (NONE SEEN)
--- NOTE | 2017-06-14 18:44 | PD ---
Data Data Last Documented VS Vital Signs Date Time Temp Pulse Resp B/P (MAP) Pulse Ox O2 Delivery O2 Flow Rate FiO2 06/14/17 16:01 45 25 75/38 (50) 95 Nasal Cannula 2.00 06/14/17 15:34 97.8 Orders Orders Sepsis Workup Initiated (06/14/17 ) Electrocardiogram (06/14/17 15:57) Complete Blood Count With Diff (06/14/17 15:57) Comprehensive Metabolic Panel (06/14/17 15:57) Prothrombin Time / Inr (Pt) (06/14/17 15:57) Act Partial Throm Time (Ptt) (06/14/17 15:57) Lactic Acid Sepsis Protocol (06/14/17 15:57) Magnesium (Mg) (06/14/17 15:57) Ckmb (Isoenzyme) Profile (06/14/17 15:57) Troponin I (06/14/17 15:57) Urinalysis - C+S If Indicated (06/14/17 15:57) Blood Culture (06/14/17 15:57) Chest, Single Ap (06/14/17 15:57) Blood Glucose (06/14/17 15:57) Ecg Monitoring (06/14/17 15:57) Iv Access Insert/Monitor (06/14/17 15:57) Oximetry (06/14/17 15:57) Oxygen Administration (06/14/17 15:57) Piperacil-Tazo 4.5 Gm Premix (Zosyn 4.5 (06/14/17 15:57) Vancomycin Inj (Vancomycin Inj) (06/14/17 15:57) Foot, Complete ([id number]) (06/14/17 ) Tibia/Fibula (Ap/Lat) (06/14/17 ) Sodium Chlor 0.9% 1000 Ml Inj (Ns 1000 M (06/14/17 16:15) Ammonia (06/14/17 16:21) Sodium Chlor 0.9% 1000 Ml Inj (Ns 1000 M (06/14/17 16:30) Ct Brain W/O Iv Contrast(Rout) (06/14/17 ) Morphine Inj (Morphine Inj) (06/14/17 17:19) Code Status (06/14/17 17:31) Hospice Consult (06/14/17 17:45) Albuterol Neb (Albuterol Neb) (06/14/17 18:00) Lorazepam Inj (Ativan Inj) (06/14/17 18:00) CKMB (06/14/17 17:05) CKMB% (06/14/17 17:05) Labs Laboratory Tests Test 06/14/17 17:05 White Blood Count 25.5 TH/MM3 Red Blood Count 2.83 MIL/MM3 Hemoglobin 9.1 GM/DL Hematocrit 27.7 % Mean Corpuscular Volume 97.7 FL Mean Corpuscular Hemoglobin 32.0 PG Mean Corpuscular Hemoglobin Concent 32.8 % Red Cell Distribution Width 15.2 % Platelet Count 55 TH/MM3 Mean Platelet Volume 11.5 FL Neutrophils (%) (Auto) 79.9 % Lymphocytes (%) (Auto) 1.5 % Monocytes (%) (Auto) 5.5 % Eosinophils (%) (Auto) 13.0 % Basophils (%) (Auto) 0.1 % Neutrophils # (Auto) 20.4 TH/MM3 Lymphocytes # (Auto) 0.4 TH/MM3 Monocytes # (Auto) 1.4 TH/MM3 Eosinophils # (Auto) 3.3 TH/MM3 Basophils # (Auto) 0.0 TH/MM3 CBC Comment AUTO DIFF Differential Total Cells Counted 100 Neutrophils % (Manual) 29 % Band Neutrophils % 61 % Monocytes % 2 % Neutrophils # (Manual) 25.0 TH/MM3 Metamyelocytes 7 % Myelocytes 1 % Nucleated Red Blood Cells 1 /100 WBC Differential Comment FINAL DIFF MANUAL Toxic Vacuolation PRESENT Platelet Estimate LOW Platelet Morphology Comment ENLARGED Ovalocytes 1+ Prothrombin Time 19.7 SEC Prothromb Time International Ratio 1.9 RATIO Activated Partial Thromboplast Time 39.0 SEC Blood Urea Nitrogen 35 MG/DL Creatinine 2.73 MG/DL Random Glucose 22 MG/DL Total Protein 4.3 GM/DL Albumin 1.9 GM/DL Calcium Level 7.4 MG/DL Magnesium Level 1.7 MG/DL Alkaline Phosphatase 69 U/L Aspartate Amino Transf (AST/SGOT) 1044 U/L Alanine Aminotransferase (ALT/SGPT) 965 U/L Total Bilirubin 3.0 MG/DL Sodium Level 139 MEQ/L Potassium Level 4.4 MEQ/L Chloride Level 106 MEQ/L Carbon Dioxide Level 15.6 MEQ/L Anion Gap 17 MEQ/L Estimat Glomerular Filtration Rate 17 ML/MIN Lactic Acid Level 9.0 mmol/L Protein Corrected Calcium 9.0 MG/DL Total Creatine Kinase 455 U/L Creatine Kinase MB 20.3 NG/ML Creatine Kinase MB % 4.5 % Troponin I 0.20 NG/ML MDM Supervised Visit with YEHUDA: Yes Narrative Course I, Dr. Raphael, have reviewed the advance practice practitioner's documentation and am in agreement, met with the patient face to face, made the diagnosis, and the medical decision making was done by me. See his note for further details. This is a 66-year-old female who was recently admitted and discharged to an [facility] with a PICC line through which she was receiving IV vancomycin for MRSA bacteremia, sent in from [facility] for evaluation of weakness, low blood pressure, and ecchymotic left foot. Upon arrival to the emergency department the patient had a heart rate in the 40s and blood pressure was difficult to obtain. She was awake, and alert, however seemed confused and slightly agitated. Her PICC line was used to administer IV fluids as well as IV antibiotics. Patient's daughter Tori Fabian, who is the patient's power of research attorney, was at the bedside upon patient arrival to the emergency department. I had a discussion with her regarding the critical presentation of her mother, and discussed what her mother's advanced directives were. She then went to the waiting room, and while she was there, patient's respirations became agonal and she had no palpable pulse. At approximately 5:15 PM CPR was initiated and the patient had received 1 round of epinephrine while simultaneously the patient's daughter was contacted in the waiting room. She did not want resuscitation attempts to continue, however after 1 dose of epinephrine, the patient regained a pulse and blood pressure, and her mentation had returned. The patient's daughter was then brought to the patient's bedside, and at that time I signed a DNR form at the request of the patient's daughter/power of research attorney Tori Fabian. Hospice was contacted for comfort care, however the patient shortly became short of breath once again, and decision was made by the patient's daughter to make patient as comfortable as possible. The patient was given morphine and Ativan for comfort measures, and shortly after her respirations and heart rate began to slow. At 6:20 PM the patient was pronounced . Patient's daughter was at the bedside at time of . Diagnosis Primary Impression: Cardiac arrest Additional Impression: Septic shock Condition: Oni Raphael MD Jun 14, 2017 18:44
== END 2017-06-14 19:10 | disposition expired ==
LOC: NEPE 14:50
DX: I46.9 Cardiac arrest, cause unspecified (principal); R65.21 Severe sepsis with septic shock; I10 Essential (primary) hypertension; I25.10 Atherosclerotic heart disease of native coronary artery without angina pectoris; K21.9 Gastro-esophageal reflux disease without esophagitis
CPT/HCPCS: 70450; 71045; 73590; 73630; 80053; 82550; 82552; 83605; 83735; 84484; 85007; 85027; 85610; 85730; 87040; 87205; 92950; 94664; 96374; 99285; J0171; J2060; J2270; J7030; J7613